=== PATIENT | female | born 1965 | race Caucasian/White ===

== ENCOUNTER 2016-07-21 20:32 | Emergency (ER) | payer MEDICAID ==
[~2016-07-21] VITALS: Ht 162.6 cm; Wt 76.7 kg
[~2016-07-21 20:32] MED LIST: APRESOLINE10 MG PO; ASPIRIN81 M1 PO; BISCOLAX5 MG PO; CALCIUM600 M1 PO; CATAPRES0.1 MG PO; DIALYVITE1 TAB PO; LEVEMIR100 U/ML SUBQ; LIPITOR80 MG PO; PRILOSEC40 MG PO; TRICOR145 MG PO
[2016-07-21 20:40] VITALS: BP 147/91
--- NOTE | 2016-07-21 21:49 | NUR ---
LAB CALLED FOR CRITICAL HIGH CR 4.9. DR. LEVY MADE AWARE.
--- NOTE | 2016-07-21 22:30 | NUR ---
AMBULATED TO ER BED 7
--- NOTE | 2016-07-21 22:35 | NUR ---
PT IS 51/F BIB SON TO ED WITH C/O ABD PAIN AND BRUISE x YESTERDAY. PT STATES MED HX OF DM AND DIALYSIS. DENIES N/V/D; SKIN IS PINK/WARM/DRY; AAOX4 WITH EVEN AND STEADY GAIT; LUNGS CLEAR BL; HR EVEN AND REGULAR; PT DENIES ANY FEVER, CP, SOB, OR COUGH AT THIS TIME; PATIENT STATES PAIN OF 8/10 AT THIS TIME; VSS; PATIENT POSITIONED FOR COMFORT; HOB ELEVATED; BEDRAILS UP X2; BED DOWN. ER MD MADE AWARE OF PT STATUS.
--- NOTE | 2016-07-22 00:30 | NUR ---
PT RESTING IN BED NO S/S OF ACUTE RESPIRATORY DISTRESS NOTED AT THIS TIME
[2016-07-22] MEDS ORDERED: MORPHINE SULFATE 4 MG/ML SYR IM ONE (00:35)
[2016-07-22 02:15] VITALS: BP 128/86
[2016-10-29] MEDS ORDERED: LASIX40 MG PO (10:56)
[2016-10-29] MEDS ORDERED: HYDRALAZINE HY100 M1 PO (10:58)
[2016-10-29] MEDS ORDERED: CATAPRES0.3 MG PO (13:15)
[2016-11-01] MEDS ORDERED: KEFLEX250 MG PO (12:24)
[2016-11-01] MEDS ORDERED: BLOOD GLUCOSE1 EACH FS (12:24)
[2016-11-01] MEDS ORDERED: HUMALOG SL100 UNITS/ SUBQ (12:24)
[2016-11-01] MEDS ORDERED: FLORASTOR 33 MG1 CAP PO (12:24)
[2016-11-01] MEDS ORDERED: LEVEMIR100 U/ML SUBQ (12:24)
[2016-11-01] MEDS ORDERED: NEPHRO-VITE1 TA1 PO (12:24)
[2016-11-01] MEDS ORDERED: CARVEDILOL3.125 MG PO (12:24)
[2016-11-06] MEDS ORDERED: FAMOTIDINE20 M2 PO (08:19)
[2016-11-06] MEDS ORDERED: LEVEMIR100 U/ML SUBQ (08:19)
[2016-11-06] MEDS ORDERED: AMLODIPINE BESYL5 M1 PO (08:19)
[2016-11-06] MEDS ORDERED: CATAPRES0.1 M1 PO (08:19)
[2016-11-06] MEDS ORDERED: LIPITOR80 MG PO (08:19)
[2016-11-06] MEDS ORDERED: CARVEDILOL3.125 MG PO (08:19)
[2016-11-06] MEDS ORDERED: PHOSLO667 M1 PO (08:19)
[2016-11-06] MEDS ORDERED: LISINOPRIL20 M1 PO (08:19)
[2016-11-06] MEDS ORDERED: LASIX10 MG/M2 IVP (08:22)
== END 2016-07-22 02:14 | disposition home or self-care (01) ==
LOC: MED 20:32
DX: S30.1XXA Contusion of abdominal wall, initial encounter (principal); I12.9 Hypertensive chronic kidney disease with stage 1 through stage 4 chronic kidney disease, or unspecified chronic kidney disease; E11.22 Type 2 diabetes mellitus with diabetic chronic kidney disease; E11.9 Type 2 diabetes mellitus without complications; N18.9 Chronic kidney disease, unspecified; Z99.2 Dependence on renal dialysis; Z79.4 Long term (current) use of insulin; Z79.82 Long term (current) use of aspirin; X58.XXXA Exposure to other specified factors, initial encounter; Y92.89 Other specified places as the place of occurrence of the external cause; Y93.89 Activity, other specified; Y99.8 Other external cause status
CPT/HCPCS: 36415; 74176; 80053; 81002; 81025; 83690; 85025; 85610; 85730; 96372; 99285; J2270

== ENCOUNTER 2016-10-29 01:19 | Inpatient (IN) | payer MEDICAID ==
[~2016-10-29] VITALS: Ht 157.5 cm; Wt 73.5 kg
[~2016-10-29 01:19] MED LIST changes: -APRESOLINE10 MG PO; +ASPI81CT89 PO; -ASPIRIN81 M1 PO; -BISCOLAX5 MG PO; +CALC600T18 PO; -CALCIUM600 M1 PO; -CATAPRES0.1 MG PO; +CLON0.1T42 PO; -DIALYVITE1 TAB PO; +FENO145T PO; +HYDR-3229 PO; +LEVEMIR SUBQ; -LEVEMIR100 U/ML SUBQ; +LIP80 PO; -LIPITOR80 MG PO; +OMEP40EC1 PO; -PRILOSEC40 MG PO; -TRICOR145 MG PO; +VITA1TAB83 PO; +[UNRECOGNIZED DRUG - CODE] PO
[2016-10-29 01:23] VITALS: BP 202/79
--- NOTE | 2016-10-29 01:32 | NUR ---
PT TAKEN TO BED 6
--- NOTE | 2016-10-29 01:35 | NUR ---
PT IS 51/F BIB SON TO ED WITH C/O HIGH BP, 202/ 79 SLEEPY, PALE. PT STATES MED HX OF HTN, DM, DIALYSIS PATIENT (TUE,THYUKO, SAT). DENIES N/V/D; SKIN IS WARM/DRY; AAOX4 WITH EVEN AND STEADY GAIT; LUNGS CLEAR BL; HR EVEN AND REGULAR; PT DENIES ANY FEVER, CP, SOB, OR COUGH AT THIS TIME; PATIENT STATES PAIN OF 0/10 AT THIS TIME; VSS; PATIENT POSITIONED FOR COMFORT; HOB ELEVATED; BEDRAILS UP X2; BED DOWN. ER MD MADE AWARE OF PT STATUS.
--- NOTE | 2016-10-29 01:36 | NUR ---
Dr. Lazar evaluating patient at bedside.
[2016-10-29] MEDS ORDERED: LABETALOL 100 MG/20 ML VIAL IVP ONE (01:40)
--- NOTE | 2016-10-29 02:55 | NUR ---
PT APPEARS TO BE SLEEPING IN BED. NO AOB NOTED AT THIS TIME. SON AT BEDSIDE. WILL CONTINUE TO MONITOR.
[2016-10-29 02:58] LABS: HEMATOCRIT 40.1 % (36-48); HEMOGLOBIN 12.9 g/dL (12.0-16.0); MEAN CORPUSCULAR HEMOGLOBIN 29 pg (27-31); MEAN CORPUSCULAR HGB CONC 32 g/dL (33-37); MEAN CORPUSCULAR VOLUME 91 fL (80-94); PLATELET COUNT (AUTO) 233 K/uL (140-450); RED BLOOD CELL COUNT(AUTO) 4.42 MIL/uL (4.20-5.40); RED CELL DISTRIBUTION WIDTH 15.7 % (11.6-13.7); WHITE BLOOD COUNT (AUTO) 9.1 K/uL (4.8-10.8)
[2016-10-29 03:00] LABS: ANION GAP 9.5 (8-16); CALCIUM 9.1 mg/dL (8.5-10.1); CARBON DIOXIDE 33.7 mmol/L (21-32); CREATININE 3.6 mg/dL (0.6-1.3); POTASSIUM 4.2 mmol/L (3.5-5.1)
[2016-10-29 03:06] LABS: TOTAL BILIRUBIN 0.4 mg/dL (0.0-1.0); TOTAL PROTEIN, SERUM 7.5 g/dL (6.4-8.2)
[2016-10-29 03:07] LABS: EOSINOPHILS % (MANUAL) 12 % (0-4); LYMPHOCYTES % (MANUAL) 29 % (20-46); MONOCYTES % (MANUAL) 4 % (5-12); NEUTROPHILS % (MANUAL) 55 (43-65)
[2016-10-29 03:09] LABS: INR 1.1 (0.8-1.2); PARTIAL THROMBOPLASTIN TIME 28.3 secs (22-35.6); PROTHROMBIN TIME 10.4 secs (10.8-13.4)
[2016-10-29] MEDS ORDERED: hydrALAZINE 20 MG/ML VIAL IVP ONE (03:20)
[2016-10-29] MEDS ORDERED: ACETAMINOPHEN EXTRA STRENGTH 500 MG TAB PO ONE (04:30)
--- NOTE | 2016-10-29 04:53 | NUR ---
PT RESTING IN BED . NO SOB NOTED AT THIS TIME. PT DENIES PAIN AT THIS TIME. SON AT BEDSIDE.
--- NOTE | 2016-10-29 05:10 | NUR ---
PT TAKEN TO CT
--- NOTE | 2016-10-29 05:23 | NUR ---
PT BACK ON UNIT FROM CT
[2016-10-29] MEDS: NACL 0.9% 1,000 ML IV SCH ×2 (06:14→12:17)
[2016-10-29] MEDS ORDERED: ACETAMINOPHEN 325 MG TAB PO PRN (06:15)
[2016-10-29] MEDS ORDERED: ONDANSETRON 4 MG/2 ML VIAL IVP PRN (06:15)
[2016-10-29] MEDS ORDERED: HYDROcodone/APAP 5/325 MG 1 TAB TAB PO PRN (06:15)
[2016-10-29] MEDS ORDERED: MORPHINE SULFATE 2 MG/ML SYR IVP PRN (06:15)
[2016-10-29] MEDS ORDERED: APAP/BUTAL/CAFF 325/50/40 MG 1 TAB PO PRN (06:15)
--- NOTE | 2016-10-29 06:40 | NUR ---
Patient will be admitted to care of DR ROCHE. Admited to TELE. Will go to room 113. Belongings list completed. Report to KASHMIR WILLIS.
[2016-10-29 07:12] LABS: FREE T4 (FREE THYROXINE) 1.18 ng/dL (0.76-1.46); MAGNESIUM 2.3 mg/dL (1.8-2.4); PHOSPHORUS 3.6 mg/dL (2.5-4.9); THYROID STIMULATING HORMONE 2.97 uIU/mL (0.34-3.76)
--- NOTE | 2016-10-29 07:30 | NUR ---
REPORT RECEIVED FROM VACUUM CLEANER MECHANIC LAZARO RN, PT RESTING WITH EYES CLOSED, RESP EVEN UNLABORED ON ROOM AIR, SON AT BEDSIDE, AROUSES TO VOICE, MOVES ALL EXT, UP OUT OF BED WITH MINIMAL ASSIST TO BATHROOM, PT DENIES PAIN OR DISCOMFORT, PT ORIENTED TO HERSELF AND DATE, REORIENTED TO LOCATION AND SITUATION, PT PLACED ON FACTORER, ORIENTED TO ROOM AND FLOOR, CALL FINLEY AT BEDSIDE, BED LOCKED IN LOW POSITION, SIDE RAILS UP X2, WILL DO COMPLETE ADMISSION ASSESSMENT AT LATER TIME.
[2016-10-29 08:00] VITALS: BP 134/56
--- NOTE | 2016-10-29 09:20 | NUR ---
DR BHARDWAJ TO BEDSIDE FOR EVAL, PT AWAKE, DENIES PAIN OR DISCOMFORT, PT REMAINS ON COLORING ROOM MAN, RESP EVEN UNLABORED, PT WITH LEFT UPPER ARM FISTULA WITH GOOD THRILL AND BRUIT, PINK BAND PLACED ON LEFT ARM, SIGN POSTED, SON AT BEDSIDE, WILL CONTINUE TO MONITOR.
[2016-10-29] MEDS ORDERED: FURO-570 PO (10:56)
[2016-10-29] MEDS ORDERED: HYDR100T79 PO (10:58)
[2016-10-29 12:00] VITALS: BP 122/47
[2016-10-29] MEDS ORDERED: DEXTROSE 50% 50 ML SYR IVP PRN (12:05)
--- NOTE | 2016-10-29 12:40 | NUR ---
PT SITTING UP EATING LUNCH, INSULIN GIVEN PER ORDERED SLIDING SCALE, PT UP TO BATHROOM WITHOUT ASSIST WITH STEADY GAIT, O2 SAT 97% ON ROOM AIR AT THIS TIME, PT NOW MORE AWAKE ALERT, OX4, RESP EVEN UNLABORED, DENIES PAIN OR DISCOMFORT, CALL FINLEY WITHIN REACH, DAUGHTER AT BEDSIDE, WILL CONTINUE TO MONITOR.
[2016-10-29] MEDS: INSULIN LISPRO SLIDING SCALE 100 UNITS/ML VIAL SUBQ PRN ×3 (12:50→21:06)
[2016-10-29] MEDS ORDERED: CLON0.3T23 PO (13:15)
--- NOTE | 2016-10-29 14:05 | NUR ---
PT SLEEPING QUIETLY WITH EYES CLOSED, RESP EVEN UNLABORED ON ROOM AIR, O2 SAT 97%, DAUGHTER AT BEDSIDE, URINE CUP PROVIDED FOR URINE SAMPLE WITH NEXT VOID, CALL FINLEY WITHIN REACH, SIDE RAILS UP X2, BED LOCKED IN LOW POSITION, WILL CONTINUE TO MONITOR.
--- NOTE | 2016-10-29 15:20 | NUR ---
CC URINE SAMPLE COLLECTED, SENT TO LAB.
[2016-10-29 16:00] VITALS: BP 166/71
--- NOTE | 2016-10-29 16:20 | NUR ---
BP INCREASED BACK TO 166/71, PT DENIES CHRISTIANSON OR OTHER PAIN, DENIES VISION PROBLEMS, PT AAOX4, SPEAKING CLEARLY, EATING [place] WITH DAUGHTER, DR MARTINEZ MADE AWARE OF BP. WILL CONTINUE TO MONITOR.
[2016-10-29] MEDS: BLOOD GLUCOSE MONITORING 1 DEV DEV FS SCH ×2 (16:28→20:37)
--- NOTE | 2016-10-29 17:10 | NUR ---
PT'S HOME MEDICATION BOTTLE FOR CLONIDINE REVIEWED WITH DR CANTOR, RX LABEL ON BOTTLE STATES 0.3MG TABS, 3 TABLETS BY MOUTH 2 TIMES A DAY.
[2016-10-29] MEDS ORDERED: FUROSEMIDE 20 MG/2 ML VIAL IVP ONE (17:20)
[2016-10-29 17:31] LABS: BILIRUBIN,URINE NEGATIVE (NEGATIVE); BLOOD, URINE 1+ (NEGATIVE); COLOR,URINE YELLOW (YELLOW); LEUKOCYTE ESTERASE ,URINE TRACE (NEGATIVE); NITRITE, URINE NEGATIVE (NEGATIVE); PROTEIN,URINE 3+ (NEGATIVE); UGLUCOSE 2+ (NEGATIVE); UROBILINOGEN,URINE 0.2 EU/dL (0.2 - 1)
[2016-10-29 17:47] LABS: APPEARANCE,URINE HAZY (CLEAR)
--- NOTE | 2016-10-29 18:20 | NUR ---
PT NOW SITTING UP IN CHAIR EATING DINNER, DENIES DIZZINESS OR LIGHT HEADEDNESS, DENIES PAIN, BP NOW 150/57, DAUGHTER AT BEDSIDE, PT DENIES ANY IMMEDIATE NEEDS, WILL CONTINUE TO MONITOR.
--- NOTE | 2016-10-29 19:24 | NUR ---
REPORT GIVEN TO HYDROPULPER, PT IN STABLE CONDITION.
--- NOTE | 2016-10-29 19:30 | NUR ---
RECEIVED PT IN STABLE CONDITION FROM AM NURSE. AAO X4, MONGOLIAN SPEAKING . ON TELE MONITOR. SITTING IN CHAIR ,EATING DINNER WITH FAMILY AT BEDSIDE. HAS HL ON THE RT FA#22 AND AV SHUNT ON LT UPPER ARM WITH GOOD BRUIT AND THRILL. NO C/O PAIN NOR DISCOMFORT AT THIS TIME. PLAN OF CARE DISCUSSED AND VERBALIZED UNDERSTANDING. ON CONTACT ISOLATION FOR HS: MRSA NARES. CALL LIGHT PLACED WITHIN EASY REACH. BED ON LOW POSITION. WILL CONTINUE TO MONITOR.
[2016-10-29 20:00] VITALS: BP 150/64
[2016-10-29 20:28] LABS: BACTERIA,URINE FEW /HPF (None Seen); RBC,URINE 0-5 (RARE) /HPF (0-5); SQUAMOUS EPITHELIAL CELL,UR FEW /LPF (0-3 (FEW)); WBC,URINE 0-5 (RARE) /HPF (0-5)
[2016-10-29] MEDS: FAMOTIDINE 20 MG TAB PO SCH (20:38)
[2016-10-29] MEDS: ATORVASTATIN 80 MG TAB PO SCH (20:40)
[2016-10-29] MEDS ORDERED: cloNIDine 0.1 MG TAB PO SCH (21:00)
--- NOTE | 2016-10-29 21:00 | NUR ---
EKG DONE AT BEDSIDE. NSR . WILL CONTINUE TO MONITOR.
[2016-10-29] MEDS: INSULIN DETEMIR 100 UNITS/ML 10 ML VIAL SUBQ SCH (21:04)
[2016-10-29] MEDS ORDERED: FUROSEMIDE 40 MG/4 ML VIAL IVP ONE (22:20)
[2016-10-29] MEDS: FUROSEMIDE 40 MG/4 ML VIAL IVP SCH (22:25)
--- NOTE | 2016-10-29 23:50 | NUR ---
CALLED RADIOLOGY FOR THE US BLE AND US ARTERIAL ORDERED. WILL DO IN AM.
[2016-10-30] VITALS (7 sets, daily range): BP systolic 126–185; BP diastolic 48–74
[2016-10-30] MEDS: cloNIDine 0.1 MG TAB PO PRN ×2 (00:15→22:19)
--- NOTE | 2016-10-30 00:15 | NUR ---
BLOOD PRESSURE 182/69. NO H/A NOR DIZZINESS NOTED. MEDICATED WITH CLONIDINE O.12 MG PO NEEDED. WILL CONTINUE TO MONITOR.
--- NOTE | 2016-10-30 01:45 | NUR ---
BP RECHECKED RESULT 171/64. NO C/O ANY HEADACHE OR DISCOMFORT. ASSISTED TO BATHROOM ,VOIDED. WILL CONTINUE TO MONITOR.
--- NOTE | 2016-10-30 03:00 | NUR ---
ASLEEP. NO S/S OF ANY DISCOMFORT NOTED. WILL CONTINUE TO MONITOR.
--- NOTE | 2016-10-30 04:00 | NUR ---
SCD MACHINE APPLIED TO BOTH LE. EXPLAINED TO PT/FAMILY REGARDING BENEFITS OF THE MACHINE. VERBALIZED UNDERSTANDING
--- NOTE | 2016-10-30 04:16 | NUR ---
PAGED DR. ROCHE FOR BP STILL 181/73 AFTER CLONIDINE 0.1MG GIVEN @0015. PT ASYMPTOMATIC. MADE AWARE AND WILL ORDER MEDS.
[2016-10-30] MEDS: hydrALAZINE 20 MG/ML VIAL IVP PRN ×2 (05:19→18:29)
--- NOTE | 2016-10-30 05:25 | NUR ---
FOLLOW UP THE US CAROTID US VENOUS AND ARTERIAL THAT NEEDS TO BE DONE FOR PT. TALKED TO DAVID AND SAID YANETH THE TECH IS COMING @ 0700 AND WILL DO THE TEST.
[2016-10-30] MEDS: BLOOD GLUCOSE MONITORING 1 DEV DEV FS SCH ×4 (06:00→20:39)
[2016-10-30] MEDS: INSULIN LISPRO SLIDING SCALE 100 UNITS/ML VIAL SUBQ PRN ×4 (06:02→20:40)
--- NOTE | 2016-10-30 06:02 | NUR ---
BLOOD SUGAR THIS AM 166. INSULIN COVERAGE GIVEN SUBQ.
[2016-10-30 06:14] LABS: HEMATOCRIT 37.5 % (36-48); HEMOGLOBIN 12.2 g/dL (12.0-16.0); MEAN CORPUSCULAR HEMOGLOBIN 30 pg (27-31); MEAN CORPUSCULAR HGB CONC 33 g/dL (33-37); MEAN CORPUSCULAR VOLUME 91 fL (80-94); PLATELET COUNT (AUTO) 224 K/uL (140-450); RED BLOOD CELL COUNT(AUTO) 4.13 MIL/uL (4.20-5.40); RED CELL DISTRIBUTION WIDTH 15.4 % (11.6-13.7); WHITE BLOOD COUNT (AUTO) 9.9 K/uL (4.8-10.8)
[2016-10-30] MEDS: NACL 0.9% 1,000 ML IV SCH (06:14)
--- NOTE | 2016-10-30 06:19 | NUR ---
LATEST BLOOD PRESSURE THIS AM AFTER APRESOLINE 10 MG IVP GIVEN 135/66 , HR -72. WILL CONTINUE TO MONITOR.
[2016-10-30 06:31] LABS: ALBUMIN 2.7 g/dL (3.4-5.0); ANION GAP 10.7 (8-16); CALCIUM 8.9 mg/dL (8.5-10.1); CARBON DIOXIDE 30.2 mmol/L (21-32); POTASSIUM 4.9 mmol/L (3.5-5.1); TOTAL BILIRUBIN 0.3 mg/dL (0.0-1.0); TOTAL PROTEIN, SERUM 6.9 g/dL (6.4-8.2)
[2016-10-30 06:33] LABS: CREATININE 5.3 mg/dL (0.6-1.3)
[2016-10-30 06:36] LABS: CHOL/HDL RATIO 2.6 (1-4.5); PHOSPHORUS 4.8 mg/dL (2.5-4.9)
[2016-10-30 06:46] LABS: URIC ACID 4.3 mg/dL (2.6-7.2)
--- NOTE | 2016-10-30 07:15 | NUR ---
ENDORSED PT IN STABLE CONDITION TO AM NURSE.
[2016-10-30 07:16] LABS: BAND % (MANUAL) 4 % (0-8); EOSINOPHILS % (MANUAL) 22 % (0-4); LYMPHOCYTES % (MANUAL) 24 % (20-46); MONOCYTES % (MANUAL) 6 % (5-12); NEUTROPHILS % (MANUAL) 44 (43-65)
--- NOTE | 2016-10-30 07:18 | NUR ---
REPORT RECEIVED FROM ELECTRONIC SERVICE TECHNICIAN, PT RESTING WITH EYES CLOSED, AROUSES WITH VOICE, RESP EVEN UNLABORED ON ROOM AIR, SPEAKS CLEARLY IN NAD, PLAN OF CARE DISCUSSED, PT DENIES PAIN OR DISCOMFORT, UP OUT OF BED WITH MINIMAL ASSIST, AMBULATES TO BATHROOM WITH STEADY GAIT, SON AT BEDSIDE, CALL FINLEY WITHIN REACH, SIDE RAILS UP, BED LOCKED IN LOW POSITION, WILL CONTINUE TO MONITOR.
[2016-10-30] MEDS: FAMOTIDINE 20 MG TAB PO SCH ×2 (08:51→20:38)
[2016-10-30] MEDS: VIT-B COMP/VIT-C/FOLIC ACID 1 TAB PO SCH (08:51)
[2016-10-30] MEDS: ECOTRIN 81 MG TABEC PO SCH (08:51)
[2016-10-30] MEDS: FUROSEMIDE 40 MG/4 ML VIAL IVP SCH ×2 (08:51→16:52)
[2016-10-30] MEDS: cloNIDine 0.1 MG TAB PO SCH (08:52)
[2016-10-30] MEDS: INSULIN DETEMIR 100 UNITS/ML 10 ML VIAL SUBQ SCH ×2 (08:54→20:41)
[2016-10-30] MEDS ORDERED: FUROSEMIDE 40 MG/4 ML VIAL IVP SCH (09:00)
[2016-10-30 09:22] LABS: T4 (THYROXINE) 8.2 ug/dL (4.5-12.0)
[2016-10-30] MEDS: VITAMIN B COMPLEX W/C 1 TAB PO SCH (09:50)
--- NOTE | 2016-10-30 10:18 | NUR ---
REPEAT BP 140/68 HR 66, PT AWAKE ALERT, DENIES PAIN OR DISCOMFORT, WILL CONTINUE TO MONITOR
--- NOTE | 2016-10-30 11:03 | NUR ---
ECHOCARDIOGRAM BEING DONE AT BEDSIDE AT THIS TIME.
--- NOTE | 2016-10-30 12:20 | NUR ---
PT SITTING UP WATCHING VIDEO ON PHONE, AAOX4, RESP EVEN UNLABORED ON ROOM AIR IN NAD, PT DENIES PAIN OR DISCOMFORT, DENIES ANY IMMEDIATE NEEDS, CALL FINLEY WITHIN REACH.
--- NOTE | 2016-10-30 12:58 | NUR ---
PATIENT HAS BEEN SCREENED AND CATEGORIZED MODERATE NUTRITION RISK. PATIENT WILL BE SEEN WITHIN 3-5 DAYS OF ADMISSION. 11/01/06 - 11/03/16 WM DIAS MBA, RD
--- NOTE | 2016-10-30 16:30 | NUR ---
PT SITTING UP IN BED IN NAD, RESP EVEN UNLABORED, TALKING WITH SON IN NAD, DENIES CHRISTIANSON OR OTHER PAIN, BP INCREASED TO 185/74, WILL GIVE 1700 DOSE OF LASIX NOW AND REEVALUATE.
--- NOTE | 2016-10-30 18:34 | NUR ---
BP NOW 179/68, PRN HYDRALAZINE GIVEN AT THIS TIME, PT AAOX4, SITTING UP EATING DINNER, DENIES PAIN OR DISCOMFORT, DENIES CHRISTIANSON, CALL FINLEY WITHIN REACH, SIDE RAILS UPX2, SON AT BEDSIDE, WILL CONT TO MONITOR.
--- NOTE | 2016-10-30 19:05 | NUR ---
BP 135/57 NOW, PT RESTING QUIETLY IN NAD, WILL REPORT TO ONCOMING SHIFT
--- NOTE | 2016-10-30 19:30 | NUR ---
REPORT GIVEN TO TESTS SUPERINTENDENT, PT IN STABLE CONDITION
--- NOTE | 2016-10-30 19:30 | NUR ---
RECEIVED REPORT FROM MAURO RN AT BEDSIDE. PT IS ALERT AWAKE ORIENTED X4. INITIAL ASSESSMENT DONE. NO S/S OF RESPIRATORY DISTRESS OR SOB NOTED. NO C/O PAIN OR ANY DISCOMFORT AT THIS TIME. PLAN OF CARE REVIEWED TO PT AND FAMILY AT BEDSIDE AND VERBALIZED UNDERSTANDING. CALL LIGHT WITHIN REACH. WILL CONTINUE TO MONITOR.
[2016-10-30] MEDS: ATORVASTATIN 80 MG TAB PO SCH (20:38)
--- NOTE | 2016-10-30 21:00 | NUR ---
DR. MEZA CAME TO SEE PT AND NEW ORDERS WERE GIVEN (PLS SEE CPOE). NEW ORDERS NOTED AND CARRIED OUT. WILL CONTINUE TO MONITOR.
[2016-10-30] MEDS: DOCUSATE SODIUM 250 MG GELCAP PO SCH (21:15)
--- NOTE | 2016-10-30 21:25 | NUR ---
CALLED JENNA BAEZ AND SCHEDULE PT FOR DIALYSIS [place] AT 0900 IS CONFIRMED. WILL CONTINUE TO MONITOR.
[2016-10-31] VITALS: BP 150/70
--- NOTE | 2016-10-31 | NUR ---
PT IS SLEEPING RIGHT NOW BUT EASILY AROUSABLE. NO S/S OF ANY DISCOMFORT AT THIS TIME. ALL NEEDS ARE ATTENDED. CALL LIGHT WITHIN REACH. WILL CONTINUE TO MONITOR.
[2016-10-31 04:00] VITALS: BP 155/79
--- NOTE | 2016-10-31 05:20 | NUR ---
AM CARE RENDERED. BED LINEN CHANGED. INSTRUCTED PT TO REPOSITION. KEPT CLEAN AND DRY. CALL LIGHT WITHIN REACH. WILL CONTINUE TO MONITOR.
[2016-10-31 06:11] LABS: BASOPHILS # (AUTO) 0.2 K/uL (0.00-0.22); BASOPHILS % (AUTO) 1.7 % (0.0-2.0); EOSINOPHILS # (AUTO) 0.4 K/uL (0-0.4); EOSINOPHILS % (AUTO) 4.1 % (0.0-4.0); HEMATOCRIT 38.3 % (36-48); HEMOGLOBIN 11.9 g/dL (12.0-16.0); LYMPHOCYTES # (AUTO) 1.9 K/uL (2.5-16.5); LYMPHOCYTES % (AUTO) 19.7 % (20.5-51.1); MEAN CORPUSCULAR HEMOGLOBIN 28 pg (27-31); MEAN CORPUSCULAR HGB CONC 31 g/dL (33-37); MEAN CORPUSCULAR VOLUME 90 fL (80-94); MONOCYTES # (AUTO) 0.6 K/uL (0.8-1.0); MONOCYTES % (AUTO) 5.9 % (1.7-9.3); NEUTROPHILS # (AUTO) 6.3 K/uL (1.8-7.7); NEUTROPHILS % (AUTO) 68.6 % (42.2-75.2); PLATELET COUNT (AUTO) 231 K/uL (140-450); RED BLOOD CELL COUNT(AUTO) 4.24 MIL/uL (4.20-5.40); RED CELL DISTRIBUTION WIDTH 15.4 % (11.6-13.7); WHITE BLOOD COUNT (AUTO) 9.4 K/uL (4.8-10.8)
[2016-10-31 06:24] LABS: ANION GAP 14.7 (8-16); CALCIUM 8.9 mg/dL (8.5-10.1); CARBON DIOXIDE 27.6 mmol/L (21-32); POTASSIUM 5.3 mmol/L (3.5-5.1)
[2016-10-31 06:32] LABS: MAGNESIUM 2.5 mg/dL (1.8-2.4); PHOSPHORUS 4.7 mg/dL (2.5-4.9)
[2016-10-31 06:34] LABS: CREATININE 6.6 mg/dL (0.6-1.3)
[2016-10-31] MEDS: BLOOD GLUCOSE MONITORING 1 DEV DEV FS SCH ×4 (06:46→21:19)
--- NOTE | 2016-10-31 07:15 | NUR ---
PT HAS NO S/S OF ANY DISCOMFORT. PLAN OF CARE ENDORSED TO CHELO MARLOW AT BEDSIDE FOR CONTINUITY OF CARE.
--- NOTE | 2016-10-31 07:15 | NUR ---
RECEIVED REPORT FROM NIGHT NURSE, PT IS AAOX4 MONGOLIAN SPEAKING, ON ROOM AIR, IV TO RIGHT FA 22G SALINE LOCK PATENT AND INTACT. AV SHUNT TO LEFT UPPER ARM, SKIN INTACT, INITIAL ASSESSMENT COMPLETED, REVIEWED PLAN OF CARE WITH PT, PT VERBALIZED UNDERSTANDING. ALL SAFETY PRECAUTIONS MET. SON AT BEDSIDE, CALL LIGHT WITHIN REACH, WILL CONTINUE TO MONITOR.
[2016-10-31 08:39] VITALS: BP 152/60
[2016-10-31] MEDS: cloNIDine 0.1 MG TAB PO SCH ×2 (09:00→21:47)
[2016-10-31] MEDS: INSULIN DETEMIR 100 UNITS/ML 10 ML VIAL SUBQ SCH ×3 (09:00→21:49)
[2016-10-31] MEDS: FUROSEMIDE 40 MG/4 ML VIAL IVP SCH ×2 (09:00→16:48)
[2016-10-31] MEDS: DOCUSATE SODIUM 250 MG GELCAP PO SCH ×2 (09:04→21:47)
[2016-10-31] MEDS: FAMOTIDINE 20 MG TAB PO SCH (09:04)
[2016-10-31] MEDS: VITAMIN B COMPLEX W/C 1 TAB PO SCH (09:04)
[2016-10-31] MEDS: ECOTRIN 81 MG TABEC PO SCH (09:04)
[2016-10-31] MEDS: VIT-B COMP/VIT-C/FOLIC ACID 1 TAB PO SCH (09:05)
--- NOTE | 2016-10-31 09:08 | NUR ---
DUE MEDICATIONS GIVEN, BP MEDICATION NOT GIVEN, HEMODIALYSIS IN PROCESS. ALL NEEDS MET. CALL LIGHT WITHIN REACH. WILL CONTINUE TO MONITOR.
[2016-10-31] MEDS ORDERED: CARVEDILOL 3.125 MG TAB PO SCH (10:47)
--- NOTE | 2016-10-31 11:30 | NUR ---
DUE MEDICATION GIVEN, SON AT BEDSIDE WILL CONTINUE TO MONITOR. ALL NEEDS MET
[2016-10-31 12:00] VITALS: BP 137/74
[2016-10-31] MEDS: INSULIN LISPRO SLIDING SCALE 100 UNITS/ML VIAL SUBQ PRN ×2 (12:02→17:57)
--- NOTE | 2016-10-31 13:25 | NUR ---
PT CURRENTLY SLEEPING, SON AT BEDSIDE. WILL CONTINUE TO MONITOR.
[2016-10-31 16:00] VITALS: BP 149/63
[2016-10-31 16:30] LABS: HEMOGLOBIN A1C 6.7 % (4.8-5.6)
--- NOTE | 2016-10-31 16:51 | NUR ---
DUE MEDICATIONS GIVEN, SON AT BEDSIDE. ALL NEEDS MET. CALL LIGHT WITHIN REACH. WILL CONTINUE TO MONITOR.
--- NOTE | 2016-10-31 19:37 | NUR ---
ENDORSED PLAN OF CARE TO NIGHT NURSE, PT IN STABLE CONDITION.
[2016-10-31 20:00] VITALS: BP 167/70
--- NOTE | 2016-10-31 20:00 | NUR ---
RECEIVED ALERT,ORIENTED,VERBALLY RESPONSIVE IN [place]. AFEBRILE,NOT IN ACUTE DISTRESS. DENIES ANY PAIN OR DISCOMFORT. WITH SALINE LOCK TO THE RIGHT FOREARM GAUGE 22 INTACT. SAO2=96% ON ROOM AIR. BP ELEVATED (167/70),OTHERWISE ASYMPTOMATIC AND STABLE. WILL CONTINUE TO MONITOR. NEEDS ATTENDED.
--- NOTE | 2016-10-31 21:19 | NUR ---
[id number]. NO SLIDING SCALE INSULIN COVERAGE NEEDED.
[2016-10-31] MEDS: CARVEDILOL 3.125 MG TAB PO SCH (21:47)
[2016-10-31] MEDS: ATORVASTATIN 80 MG TAB PO SCH (21:47)
--- NOTE | 2016-10-31 21:47 | NUR ---
LEVEMIR REFUSED BY PT. OTHER DUE MEDICATIONS GIVEN.
[2016-11-01] VITALS: BP 154/54
--- NOTE | 2016-11-01 | NUR ---
RESTING IN BED,NOT IN ANY KIND OF DISTRESS. NO PAIN OR DISCOMFORT NOTED. SIDE RAILS UP,CALL LIGHT WITHIN REACH. KEPT WARM AND COMFORTABLE. VS REMAIN STABLE.
--- NOTE | 2016-11-01 04:00 | NUR ---
ASLEEP,NOT IN ANY KIND OF DISTRESS. NO PAIN OR DISCOMFORT NOTED. NO SIGNIFICANT CHANGE IN CONDITION. WILL CONTINUE TO MONITOR.
[2016-11-01] MEDS: BLOOD GLUCOSE MONITORING 1 DEV DEV FS SCH ×2 (05:59→11:39)
[2016-11-01] MEDS: INSULIN LISPRO SLIDING SCALE 100 UNITS/ML VIAL SUBQ PRN ×2 (06:13→11:59)
--- NOTE | 2016-11-01 06:13 | NUR ---
2 UNITS OF HUMALOG SQ GIVEN PER SLIDING SCALE FOR BLOOD [id number].
[2016-11-01 06:16] LABS: BASOPHILS # (AUTO) 0.2 K/uL (0.00-0.22); BASOPHILS % (AUTO) 2.2 % (0.0-2.0); EOSINOPHILS # (AUTO) 0.9 K/uL (0-0.4); EOSINOPHILS % (AUTO) 8.8 % (0.0-4.0); HEMATOCRIT 38.1 % (36-48); HEMOGLOBIN 12.5 g/dL (12.0-16.0); LYMPHOCYTES # (AUTO) 2.6 K/uL (2.5-16.5); LYMPHOCYTES % (AUTO) 24.8 % (20.5-51.1); MEAN CORPUSCULAR HEMOGLOBIN 30 pg (27-31); MEAN CORPUSCULAR HGB CONC 33 g/dL (33-37); MEAN CORPUSCULAR VOLUME 90 fL (80-94); MONOCYTES % (AUTO) 9.2 % (1.7-9.3); NEUTROPHILS # (AUTO) 5.8 K/uL (1.8-7.7); PLATELET COUNT (AUTO) 245 K/uL (140-450); RED BLOOD CELL COUNT(AUTO) 4.24 MIL/uL (4.20-5.40); RED CELL DISTRIBUTION WIDTH 15.6 % (11.6-13.7); WHITE BLOOD COUNT (AUTO) 10.5 K/uL (4.8-10.8)
[2016-11-01 06:53] LABS: ALBUMIN 2.9 g/dL (3.4-5.0); ANION GAP 16.3 (8-16); CALCIUM 8.9 mg/dL (8.5-10.1); CARBON DIOXIDE 28.9 mmol/L (21-32); PHOSPHORUS 5.9 mg/dL (2.5-4.9); POTASSIUM 4.2 mmol/L (3.5-5.1); TOTAL BILIRUBIN 0.3 mg/dL (0.0-1.0); TOTAL PROTEIN, SERUM 7.5 g/dL (6.4-8.2)
[2016-11-01 07:05] LABS: CREATININE 5.6 mg/dL (0.6-1.3)
--- NOTE | 2016-11-01 07:10 | NUR ---
RECEIVED PATIENT REPORT AT BEDSIDE. PATIENT AWAKE, ALERT, ORIENTED AND AMBULATORY. NO S/S OF DISTRESS NOTED. PATIENT ON ROOM AIR. NO C/O PAIN AT THIS TIME. LEFT UPPER ARM AV SHUNT NOTED. IV LINE NOTED TO THE RIGHT FOREARM SALINE LOCKED. BED LOWERED WITH CALL LIGHT WITHIN REACH. WILL CONTINUE TO MONITOR
--- NOTE | 2016-11-01 07:21 | NUR ---
ENDORSED CARE TO SAÚL PAL
[2016-11-01 08:00] VITALS: BP 133/66
[2016-11-01] MEDS: ECOTRIN 81 MG TABEC PO SCH (08:30)
[2016-11-01] MEDS: cloNIDine 0.1 MG TAB PO SCH (08:31)
[2016-11-01] MEDS: VIT-B COMP/VIT-C/FOLIC ACID 1 TAB PO SCH (08:31)
[2016-11-01] MEDS: DOCUSATE SODIUM 250 MG GELCAP PO SCH (08:31)
[2016-11-01] MEDS: CARVEDILOL 3.125 MG TAB PO SCH (08:32)
[2016-11-01] MEDS: FUROSEMIDE 40 MG/4 ML VIAL IVP SCH (08:32)
[2016-11-01] MEDS: VITAMIN B COMPLEX W/C 1 TAB PO SCH (08:33)
[2016-11-01] MEDS: INSULIN DETEMIR 100 UNITS/ML 10 ML VIAL SUBQ SCH (08:38)
[2016-11-01 10:09] LABS: URIC ACID 4.4 mg/dL (2.6-7.2)
[2016-11-01 11:00] VITALS: BP 119/78
--- NOTE | 2016-11-01 11:00 | NUR ---
IV LINE INFILTRATED. IV LINE DISCONTINUED. PER DR ARMENTA, NO NEED TO START A NEW IV LINE. PATIENT DOES NOT NEED SCHEDULED DOSE OF ROCEPHIN
--- NOTE | 2016-11-01 12:00 | NUR ---
TOOK PT LUNCH TRAY AND DIALED HER HOUSE # ON THE HOSPITAL PHONE. SHE WILL CALL FAMILY TO COME AND PICK HER UP BY [address] TOM AND REQUESTED THE DC ORDER BE IN SOONER. PT WILL BE READY TO LEAVE BY 1 PM. AWARE. WILL KEEP CHECKING FOR DC ORDER.
[2016-11-01] MEDS ORDERED: CEPH250C16 PO (12:24)
[2016-11-01] MEDS ORDERED: LEVEMIR SUBQ (12:24)
[2016-11-01] MEDS ORDERED: HUMSLIDE SUBQ (12:24)
[2016-11-01] MEDS ORDERED: NEP PO (12:24)
[2016-11-01] MEDS ORDERED: BLOO1STR10 FS (12:24)
[2016-11-01] MEDS ORDERED: CARV3.122 PO (12:24)
[2016-11-01] MEDS ORDERED: SACC250C1 PO (12:24)
--- NOTE | 2016-11-01 13:15 | NUR ---
WENT OVER THE DC PAPERWORK WITH PT AND SON. ANSWERED ALL QUESTIONS. PT VERBALIZED UNDERSTANDING. PT SIGNED ALL DOCUMENTS. REMOVED ID BANDS. GAVE THE DC PACKET. PT HAD ALL HER PERSONAL BELONGINGS. WHEELED PT OUT TO THE FRONT LOBBY W/ SON AT HER SIDE. SPOUSE WAS WAITING IN THE CAR. PT IN STABLE CONDITION.
== END 2016-11-01 13:15 | disposition home or self-care (01) | DRG 52 ==
LOC: MED 01:19 → MTU 06:25
PROVIDERS: ADMIT Family Medicine; ATTEND Family Medicine
PROC: 5A1D00Z (ICD-10-PCS; principal; 2016-10-31)
DX: I67.4 Hypertensive encephalopathy (principal); N17.0 Acute kidney failure with tubular necrosis; E43 Unspecified severe protein-calorie malnutrition; N18.6 End stage renal disease; D68.59 Other primary thrombophilia; I13.11 Hypertensive heart and chronic kidney disease without heart failure, with stage 5 chronic kidney disease, or end stage renal disease; E11.21 Type 2 diabetes mellitus with diabetic nephropathy; I16.0 Hypertensive urgency; E11.22 Type 2 diabetes mellitus with diabetic chronic kidney disease; E11.51 Type 2 diabetes mellitus with diabetic peripheral angiopathy without gangrene; E11.65 Type 2 diabetes mellitus with hyperglycemia; G90.9 Disorder of the autonomic nervous system, unspecified; K59.00 Constipation, unspecified; E83.39 Other disorders of phosphorus metabolism; K21.9 Gastro-esophageal reflux disease without esophagitis; E78.5 Hyperlipidemia, unspecified; Z99.2 Dependence on renal dialysis; Z79.82 Long term (current) use of aspirin; Z79.899 Other long term (current) drug therapy; Z68.29 Body mass index [BMI] 29.0-29.9, adult; Z86.73 Personal history of transient ischemic attack (TIA), and cerebral infarction without residual deficits; Z82.49 Family history of ischemic heart disease and other diseases of the circulatory system; Z83.3 Family history of diabetes mellitus
CPT/HCPCS: 36415; 70450; 71010; 80048; 80053; 81001; 82948; 83036; 83735; 83880; 84100; 84436; 84439; 84443; 84479; 84484; 84550; 85025; 85610; 85730; 87081; 90935; 93005; 93880; 93925; 93970; 96374; 96375; 99285; J0360; J0696; J1815; J1940; J2405; J3490; J7030; J7060; Q0092

== ENCOUNTER 2016-11-02 19:55 | Inpatient (IN) | payer MEDICAID ==
[~2016-11-02] VITALS: Ht 157.5 cm; Wt 73.5 kg
[~2016-11-02 19:55] MED LIST changes: +BLOO1STR10 FS; +CARV3.122 PO; +CEPH250C16 PO; -CLON0.1T42 PO; +CLON0.3T23 PO; -FENO145T PO; +FURO-570 PO; +HUMSLIDE SUBQ; -HYDR-3229 PO; +NEP PO; -OMEP40EC1 PO; +SACC250C1 PO
[2016-11-02 20:19] VITALS: BP 156/72
--- NOTE | 2016-11-02 21:03 | NUR ---
PT TAKEN TO OF3
--- NOTE | 2016-11-02 21:10 | NUR ---
51 Y/O F W/C/O FEELING DIZZY, IN DIALYSIS CENTER TODAY AND WAS ADVISED TO GO TO ER DUE TO HIGH BLOOD PRESSURE. HX ESRD, DM
--- NOTE | 2016-11-02 21:22 | NUR ---
Dr. Mcgrath evaluating patient
--- NOTE | 2016-11-02 22:01 | NUR ---
PT TAKEN TO XRAY
--- NOTE | 2016-11-02 22:09 | NUR ---
PT MOVED TO BED 7
[2016-11-02 22:10] LABS: BASOPHILS # (AUTO) 0.1 K/uL (0.00-0.22); BASOPHILS % (AUTO) 1.3 % (0.0-2.0); HEMOGLOBIN 13.3 g/dL (12.0-16.0); MEAN CORPUSCULAR HEMOGLOBIN 29 pg (27-31)
[2016-11-02 22:13] LABS: EOSINOPHILS # (AUTO) 0.6 K/uL (0-0.4); EOSINOPHILS % (AUTO) 7.4 % (0.0-4.0); HEMATOCRIT 41.7 % (36-48); LYMPHOCYTES # (AUTO) 1.8 K/uL (2.5-16.5); LYMPHOCYTES % (AUTO) 21.5 % (20.5-51.1); MEAN CORPUSCULAR HGB CONC 32 g/dL (33-37); MEAN CORPUSCULAR VOLUME 90 fL (80-94); MONOCYTES # (AUTO) 0.7 K/uL (0.8-1.0); MONOCYTES % (AUTO) 8.4 % (1.7-9.3); NEUTROPHILS % (AUTO) 61.4 % (42.2-75.2); PLATELET COUNT (AUTO) 253 K/uL (140-450); RED BLOOD CELL COUNT(AUTO) 4.66 MIL/uL (4.20-5.40); RED CELL DISTRIBUTION WIDTH 14.8 % (11.6-13.7); WHITE BLOOD COUNT (AUTO) 8.2 K/uL (4.8-10.8)
[2016-11-02 22:27] LABS: ANION GAP 9.3 (8-16); CARBON DIOXIDE 34.2 mmol/L (21-32); CREATININE 3.7 mg/dL (0.6-1.3); POTASSIUM 3.5 mmol/L (3.5-5.1)
[2016-11-02 22:28] LABS: INR 1.1 (0.8-1.2); PROTHROMBIN TIME 10.5 secs (10.8-13.4)
[2016-11-02 22:41] LABS: ALBUMIN 3.1 g/dL (3.4-5.0); TOTAL BILIRUBIN 0.3 mg/dL (0.0-1.0); TOTAL PROTEIN, SERUM 8.2 g/dL (6.4-8.2)
--- NOTE | 2016-11-02 23:11 | NUR ---
Stacey abarca in [facility] - 11/02/16 at 2312 by GRACIA PT CALLED TO BRICK BURNER HER UP
[2016-11-02] MEDS ORDERED: hydrALAZINE 20 MG/ML VIAL IVP STA (23:19)
--- NOTE | 2016-11-02 23:34 | NUR ---
PT TAKEN TO CT
[2016-11-03] MEDS ORDERED: HYDROcodone/APAP 5/325 MG 1 TAB TAB PO PRN (00:20)
[2016-11-03] MEDS ORDERED: ONDANSETRON 4 MG/2 ML VIAL IVP PRN (00:20)
[2016-11-03] MEDS ORDERED: ZOLPIDEM 5 MG TAB PO PRN (00:20)
[2016-11-03] MEDS ORDERED: MORPHINE SULFATE 2 MG/ML SYR IVP PRN (00:20)
[2016-11-03] MEDS ORDERED: ACETAMINOPHEN 325 MG TAB PO PRN (00:20)
--- NOTE | 2016-11-03 00:24 | NUR ---
Patient will be admitted to care of DR HASSAN. Admited to TELE. Will go to room 115. Belongings list completed. Report to KASHMIR LUBIN.
[2016-11-03] MEDS ORDERED: hydrALAZINE 20 MG/ML VIAL IM PRN (00:35)
[2016-11-03] MEDS ORDERED: DEXTROSE 50% 50 ML SYR IVP PRN (00:35)
[2016-11-03] MEDS ORDERED: INSULIN LISPRO SLIDING SCALE 100 UNITS/ML VIAL SUBQ PRN (00:35)
--- NOTE | 2016-11-03 00:42 | NUR ---
PT TRASFERED YO TELEMETRY VIA GURNEY WITH ACRDIAC MONITOR IN BED. ACCOMPANIED BY 2 RNS. NO S/S OF DISTRESS NOTED DURING TRASFER.
[2016-11-03 00:45] VITALS: BP 160/74
[2016-11-03] MEDS ORDERED: hePARIN / DEXT 5% PREMIX 250 ML IV SCH (00:45)
[2016-11-03] MEDS ORDERED: LISINOPRIL 5 MG TAB PO SCH ×3 (00:45→16:00)
[2016-11-03] MEDS ORDERED: HEPARIN PER PHARMACY MC PRN (00:45)
--- NOTE | 2016-11-03 00:45 | NUR ---
ADMITTED A 51F FORM ER, TELE PT. CAME BY BRUNA ACCOMPANIED BY SON. AWAKE,ALERT AND ORIENTED X4. AMBULATORY WITH ASSIST. HAS HL ON THE RT WRIST #22. CLEAR AND PATENT. WITH LT UPPER AM AV SHUNT , WITH GOOD BRUIT AND THRILL. LUNG SOUNDS CLEAR AND RESPIRATION EVEN AND UNLABORED. ORIENTED TO HOSPITAL ROUTINES. BED ON LOW POSITION , SIDE RAILS UP X2. CALL LIGHT PLACED WITHIN EASY REACH. PLAN OF CARE DISCUSSED AND VERBALIZED UNDERSTANDING. WILL CONTINUE TO MONITOR.
[2016-11-03 00:57] LABS: CHOL/HDL RATIO 3.5 (1-4.5)
[2016-11-03 01:00] LABS: FREE T4 (FREE THYROXINE) 1.27 ng/dL (0.76-1.46); THYROID STIMULATING HORMONE 2.19 uIU/mL (0.34-3.76)
--- NOTE | 2016-11-03 01:31 | NUR ---
PAGED DR HASSAN RE; NEED FOR PTT ORDER FOR HEPARIN DRIP PROTOCOL. HE SAID TO JUST ORDER IT.
[2016-11-03 01:33] LABS: APPEARANCE,URINE CLEAR (CLEAR); BILIRUBIN,URINE NEGATIVE (NEGATIVE); BLOOD, URINE TRACE-I (NEGATIVE); COLOR,URINE YELLOW (YELLOW); LEUKOCYTE ESTERASE ,URINE NEGATIVE (NEGATIVE); NITRITE, URINE NEGATIVE (NEGATIVE); PROTEIN,URINE 3+ (NEGATIVE); UGLUCOSE 2+ (NEGATIVE); UROBILINOGEN,URINE 0.2 EU/dL (0.2 - 1)
[2016-11-03 01:40] LABS: RBC,URINE 0-3 /HPF (0-5)
[2016-11-03 01:41] LABS: BACTERIA,URINE RARE /HPF (None Seen); SQUAMOUS EPITHELIAL CELL,UR 15-30 /LPF (0-3 (FEW))
--- NOTE | 2016-11-03 02:34 | NUR ---
HEPARIN BOLUS GIVEN PER PROTOCOL THEN WILL START HEPARIN DRIP .
[2016-11-03] MEDS: hePARIN / DEXT 5% PREMIX 250 ML IV SCH ×2 (02:41→10:47)
[2016-11-03 04:00] VITALS: BP 182/75
--- NOTE | 2016-11-03 04:00 | NUR ---
SLEEPING AT THIS TIME. NO S/S OF ANY DISCOMFORT NOR PAIN NOTED. WILL CONTINUE TO MONITOR.
[2016-11-03 06:00] VITALS: BP 158/64
--- NOTE | 2016-11-03 06:00 | NUR ---
BLOOD PRESSURE RECHECKED BEFORE HYDRALAZINE PRN. BP 158/64,HR -50. HYDRALAZINE NOT GIVEN PER PROTOCOL. WILL CONTINUE TO MONITOR.
[2016-11-03] MEDS: BLOOD GLUCOSE MONITORING 1 DEV DEV FS SCH ×4 (06:40→20:18)
[2016-11-03] MEDS: INSULIN LISPRO SLIDING SCALE 100 UNITS/ML VIAL SUBQ PRN ×3 (06:43→21:12)
--- NOTE | 2016-11-03 06:43 | NUR ---
BLOOD SUGAR WAS CHECKED RESULT 168 . INSULIN COVERAGE GIVEN SUBQ. HAD SOME JUICE.
--- NOTE | 2016-11-03 07:25 | NUR ---
ENDORSED PT IN STABLE CONDITION TO AM NURSE.
[2016-11-03] MEDS ORDERED: cloNIDine 0.1 MG TAB PO SCH ×2 (09:00→09:50)
[2016-11-03] MEDS ORDERED: FOLIC ACID PO SCH (09:00)
[2016-11-03] MEDS ORDERED: SACCHAROMYCES BOULARDII PO SCH (09:00)
[2016-11-03] MEDS ORDERED: VIT BCOMP C PO SCH (09:00)
[2016-11-03] MEDS ORDERED: CARVEDILOL 3.125 MG TAB PO SCH ×2 (09:00→21:00)
[2016-11-03] MEDS: CALCIUM CARB 600 MG TAB PO SCH (09:14)
[2016-11-03] MEDS: ATORVASTATIN 80 MG TAB PO SCH (09:14)
[2016-11-03] MEDS: VIT-B COMP/VIT-C/FOLIC ACID 1 TAB PO SCH (09:14)
[2016-11-03] MEDS: BISACODYL 5 MG TABEC PO SCH (09:15)
[2016-11-03] MEDS: FUROSEMIDE 40 MG TAB PO SCH ×2 (09:15→20:17)
[2016-11-03] MEDS: ASPIRIN 81 MG TAB.CHEW PO SCH (09:15)
[2016-11-03] MEDS: INSULIN DETEMIR 100 UNITS/ML 10 ML VIAL SUBQ SCH ×2 (09:23→20:27)
--- NOTE | 2016-11-03 10:16 | NUR ---
PATIENT HAS BEEN SCREENED AND CATEGORIZED MODERATE NUTRITION RISK. PATIENT WILL BE SEEN WITHIN 3-5 DAYS OF ADMISSION. 11/05/16-11/07/[address]
[2016-11-03] MEDS: LACTOBACILLUS RHAMNOSUS GG 1 EACH CAP PO SCH ×2 (11:04→20:17)
[2016-11-03 12:00] VITALS: BP 186/71
[2016-11-03] MEDS: cloNIDine 0.1 MG TAB PO SCH ×2 (13:42→16:43)
[2016-11-03 16:00] VITALS: BP 165/71
[2016-11-03] MEDS ORDERED: LISINOPRIL 10 MG TAB PO SCH (16:00)
--- NOTE | 2016-11-03 19:25 | NUR ---
ENDORSED PT TO KASHMIR DAHL. FOR CONTINUITY OF CARE, PT STABLE AT THIS TIME.
--- NOTE | 2016-11-03 19:30 | NUR ---
RECEIVED REPORT FROM DAY RN AT BEDSIDE, PATIENT IS RESTING IN BED AAOX4 ON ROOM AIR, NO SOB OR SIGN OF DISTRESS AT THIS TIME. IV TO RIGHT WRIST PATENT AND INTACT. DIALYSIS ACCESS AV SHUNT TO LEFT UPPER ARM, BRUIT AND THRILL PRESENT. SKIN INTACT, DENIES PAIN, PATIENT STATED SHE FEELS A LITTLE DIZZY, EXPLAINED TO PATIENT IMPORTANCE OF NOT GETTING OUT OF BED HERSELF AND TO USE CALL LIGHT FOR ASSISTANCE, PT VERBALIZED UNDERSTANDING. DISCUSSED PLAN OF CARE WITH PATIENT, PATIENT VERBALIZED UNDERSTANDING, CALL LIGHT WITHIN REACH. WILL CONTINUE TO MONITOR.
[2016-11-03 20:00] VITALS: BP 179/76
[2016-11-03] MEDS: hydrALAZINE 20 MG/ML VIAL IVP PRN (20:17)
--- NOTE | 2016-11-03 20:24 | NUR ---
PM MEDS ADMINISTERED, PATIENT TOLERATED WELL, WILL CONTINUE TO MONITOR
--- NOTE | 2016-11-03 22:30 | NUR ---
PATIENT SLEEPING, NO SIGN OF DISTRESS, CALL LIGHT WITHIN REACH. WILL CONTINUE TO MONITOR.
[2016-11-04] VITALS (7 sets, daily range): BP systolic 110–187; BP diastolic 53–84
--- NOTE | 2016-11-04 00:05 | NUR ---
VITAL SIGNS STABLE, NO SOB OR SIGN OF DISTRESS, CALL LIGHT WITHIN REACH. WILL CONTINUE TO MONITOR.
--- NOTE | 2016-11-04 00:58 | NUR ---
PAGED DRYWALL FOREMAN FOR DR HASSAN, SPOKE TO DR GARCIA, PATIENT'S BP ELEVATED TO 177/65, PRN HYDRALAZINE NOT DUE FOR ANOTHER 2 HOURS, PATIENT STATING FEELING DIZZY WHEN STANDING, MD GAVE NO NEW ORDERS AND STATED TO CONTINUE TO MONITOR THE PATIENT AND GIVE THE HYDRALAZINE PRN PER MD ORDER IF BP CONTINUES TO BE ELEVATED.
--- NOTE | 2016-11-04 02:11 | NUR ---
PATIENT SLEEPING, NO SIGN OF DISTRESS, CALL LIGHT WITHIN REACH, WILL CONTINUE TO MONITOR
[2016-11-04] MEDS: hydrALAZINE 20 MG/ML VIAL IVP PRN (03:58)
--- NOTE | 2016-11-04 04:10 | NUR ---
BLOOD PRESSURE ELEVATED, PATIENT SLEEPING, WILL ADMINISTER HYDRALAZINE PER MD ORDER, WILL CONTINUE TO MONITOR.
--- NOTE | 2016-11-04 06:20 | NUR ---
CALLED DIALYSIS NURSE TO CONFIRM DIALYSIS FOR PATIENT, DIALYSIS NURSE AWARE.
[2016-11-04] MEDS: BLOOD GLUCOSE MONITORING 1 DEV DEV FS SCH ×4 (06:42→21:13)
[2016-11-04 06:46] LABS: BASOPHILS # (AUTO) 0.2 K/uL (0.00-0.22); BASOPHILS % (AUTO) 1.6 % (0.0-2.0); EOSINOPHILS # (AUTO) 0.9 K/uL (0-0.4); HEMATOCRIT 40.2 % (36-48); LYMPHOCYTES # (AUTO) 2.6 K/uL (2.5-16.5); LYMPHOCYTES % (AUTO) 27.3 % (20.5-51.1); MEAN CORPUSCULAR HEMOGLOBIN 29 pg (27-31); MEAN CORPUSCULAR HGB CONC 32 g/dL (33-37); MEAN CORPUSCULAR VOLUME 90 fL (80-94); MONOCYTES # (AUTO) 0.8 K/uL (0.8-1.0); MONOCYTES % (AUTO) 7.9 % (1.7-9.3); NEUTROPHILS # (AUTO) 5.1 K/uL (1.8-7.7); NEUTROPHILS % (AUTO) 54.2 % (42.2-75.2); PLATELET COUNT (AUTO) 244 K/uL (140-450); RED BLOOD CELL COUNT(AUTO) 4.47 MIL/uL (4.20-5.40); RED CELL DISTRIBUTION WIDTH 15.1 % (11.6-13.7); WHITE BLOOD COUNT (AUTO) 9.6 K/uL (4.8-10.8)
[2016-11-04 07:01] LABS: ANION GAP 13.6 (8-16); CARBON DIOXIDE 29.1 mmol/L (21-32); POTASSIUM 3.7 mmol/L (3.5-5.1)
[2016-11-04 07:03] LABS: MAGNESIUM 2.2 mg/dL (1.8-2.4); PHOSPHORUS 6.6 mg/dL (2.5-4.9)
--- NOTE | 2016-11-04 07:30 | NUR ---
ENDORSED PATIENT TO DAY RN AT BEDSIDE, PATIENT IN STABLE CONDITION
--- NOTE | 2016-11-04 07:35 | NUR ---
RECEIVED REPORT FROM NIGHT RN AT BEDSIDE, PATIENT IS RESTING IN BED AWAKE, ALERT, AND ORIENTED. ON ROOM AIR, NO SOB OR SIGN OF DISTRESS AT THIS TIME. IV TO RIGHT WRIST PATENT AND INTACT. DIALYSIS ACCESS AV SHUNT TO LEFT UPPER ARM. SKIN INTACT. DISCUSSED PLAN OF CARE WITH PATIENT, PATIENT VERBALIZED UNDERSTANDING, PT WILL HAVE DIALYSIS TODAY. CALL LIGHT WITHIN REACH. WILL CONTINUE TO MONITOR.
[2016-11-04] MEDS: ASPIRIN 81 MG TAB.CHEW PO SCH (08:40)
[2016-11-04] MEDS: CALCIUM CARB 600 MG TAB PO SCH (08:40)
[2016-11-04] MEDS: FAMOTIDINE 20 MG TAB PO SCH (08:40)
[2016-11-04] MEDS: FUROSEMIDE 40 MG TAB PO SCH ×2 (08:41→21:06)
[2016-11-04] MEDS: LISINOPRIL 20 MG TAB PO SCH ×2 (09:00→21:06)
[2016-11-04] MEDS: cloNIDine 0.1 MG TAB PO SCH ×3 (09:00→17:50)
[2016-11-04] MEDS: CARVEDILOL 3.125 MG TAB PO SCH (09:00)
[2016-11-04] MEDS ORDERED: LISINOPRIL 10 MG TAB PO SCH (09:00)
[2016-11-04] MEDS: amLODIPine 5 MG TAB PO SCH (09:00)
--- NOTE | 2016-11-04 09:00 | NUR ---
HOLD SOME MEDS WHICH CAN LOWER PT'S BLOOD PRESSURE PT WILL HAVE DIALYSIS TODAY. PT'S SON AT BEDSIDE, PT VERBALIZED UNDERSTANDING, CHARGE NURSE AWARE.
--- NOTE | 2016-11-04 09:59 | NUR ---
RECHECKED BLOOD SUGAR 69. WILL CONTINUE TO GIVE PT ORANGE JUICE. Addendum: 11/04/16 at 1000 by Chip Tate RN WRONG PT.
[2016-11-04] MEDS: ATORVASTATIN 80 MG TAB PO SCH (10:10)
[2016-11-04] MEDS: VIT-B COMP/VIT-C/FOLIC ACID 1 TAB PO SCH (10:10)
[2016-11-04] MEDS: BISACODYL 5 MG TABEC PO SCH (10:11)
[2016-11-04] MEDS: LACTOBACILLUS RHAMNOSUS GG 1 EACH CAP PO SCH ×3 (10:11→21:05)
[2016-11-04 10:16] LABS: T4 (THYROXINE) 9.1 ug/dL (4.5-12.0)
[2016-11-04] MEDS: INSULIN DETEMIR 100 UNITS/ML 10 ML VIAL SUBQ SCH ×2 (10:21→21:11)
[2016-11-04] MEDS: INSULIN LISPRO SLIDING SCALE 100 UNITS/ML VIAL SUBQ PRN ×3 (11:34→21:10)
--- NOTE | 2016-11-04 14:00 | NUR ---
DIALYSIS NURSE PRESENT AT BEDSIDE.
--- NOTE | 2016-11-04 17:05 | NUR ---
DIALYSIS DONE. OUT PUT 1 LITTER.
[2016-11-04] MEDS: CALCIUM ACETATE 667 MG TAB PO SCH (17:24)
--- NOTE | 2016-11-04 17:50 | NUR ---
PT RESTING IN BED, AWAKE, ALERT, AND ORIENTED. PT'S SON AT BEDSIDE, BP CHECKED 147/71, NO S/S OF RESPIRATORY DISTRESS NOTED.
--- NOTE | 2016-11-04 19:34 | NUR ---
RECEIVED FROM AM RN IN BED SLEEPING. WAKES UP WHEN TOUCHED. PT. AFEBRILE. NO SOB. SLEPT BACK. ABLE TO USE CALL LIGHT FOR HELP PER AM RN. A/O X 4. ROM X 4. NO BLEEDING TO HD SITE. IVF SITE TO RIGHT WRIST #22 INTACT AND PATENT.
--- NOTE | 2016-11-04 22:01 | NUR ---
STILL AWAKE AT THIS TIME. WATCHING TV. ABLE TO USE CALL LIGHT FOR HELP. VERBALIZES WELL IN [place]. DENIES DOLOR AT THIS TIME.
--- NOTE | 2016-11-04 23:59 | NUR ---
PT. SLEEPING. WOKE UP EASILY WHEN TOUCHED. DENIES ANY DOLOR. NO SOB. HD SITE INTACT AND NO BLEEDING NOTED. CALL LIGHT WITH IN REACH BESIDE HER . ABLE TO USE IT FOR HELP.
[2016-11-05 04:25] VITALS: BP 159/76
--- NOTE | 2016-11-05 04:27 | NUR ---
VITAL SIGNS TAKEN . SLEEPING. WOKE UP EASILY. DENIES DOLOR. NO SOB. NO RESTLESSNESS NOTED. CALL LIGHT WITH IN REACH. BP 159/76.
[2016-11-05] MEDS: BLOOD GLUCOSE MONITORING 1 DEV DEV FS SCH ×4 (06:08→21:54)
[2016-11-05 07:21] LABS: BASOPHILS # (AUTO) 0.3 K/uL (0.00-0.22); BASOPHILS % (AUTO) 2.5 % (0.0-2.0); EOSINOPHILS # (AUTO) 0.7 K/uL (0-0.4); EOSINOPHILS % (AUTO) 6.8 % (0.0-4.0); HEMATOCRIT 38.6 % (36-48); HEMOGLOBIN 12.6 g/dL (12.0-16.0); LYMPHOCYTES # (AUTO) 2.4 K/uL (2.5-16.5); LYMPHOCYTES % (AUTO) 23.4 % (20.5-51.1); MEAN CORPUSCULAR HEMOGLOBIN 29 pg (27-31); MEAN CORPUSCULAR HGB CONC 33 g/dL (33-37); MEAN CORPUSCULAR VOLUME 90 fL (80-94); MONOCYTES % (AUTO) 9.5 % (1.7-9.3); NEUTROPHILS # (AUTO) 5.7 K/uL (1.8-7.7); NEUTROPHILS % (AUTO) 57.8 % (42.2-75.2); PLATELET COUNT (AUTO) 230 K/uL (140-450); RED BLOOD CELL COUNT(AUTO) 4.31 MIL/uL (4.20-5.40); RED CELL DISTRIBUTION WIDTH 15.1 % (11.6-13.7); WHITE BLOOD COUNT (AUTO) 10.1 K/uL (4.8-10.8)
[2016-11-05 07:38] LABS: ANION GAP 13.6 (8-16); CARBON DIOXIDE 29.4 mmol/L (21-32)
--- NOTE | 2016-11-05 07:40 | NUR ---
RECEIVED REPORT FROM KASHMIR SHAW. PT IS A/OX4, AMBULATORY, IV IS THE ON THE RIGHT WRIST, PATENT, INTACT, FLUSHING WELL, SKIN IS INTACT, NO S/S OF RESPIRATORY DISTRESS OR DISCOMFORT NOTED, SAFETY/FALL PRECAUTIONS ARE IN PLACE, DISCUSSED PLAN OF CARE WITH PT, PT VERBALIZED UNDERSTANDING, CALL LIGHT IS WITHIN REACH, WILL CONTINUE TO MONITOR.
[2016-11-05 07:44] LABS: CREATININE 4.9 mg/dL (0.6-1.3)
[2016-11-05 07:50] LABS: MAGNESIUM 1.8 mg/dL (1.8-2.4); PHOSPHORUS 4.6 mg/dL (2.5-4.9)
[2016-11-05 08:00] VITALS: BP 141/72
[2016-11-05] MEDS: CALCIUM CARB 600 MG TAB PO SCH (08:34)
[2016-11-05] MEDS: ATORVASTATIN 80 MG TAB PO SCH (08:34)
[2016-11-05] MEDS: CALCIUM ACETATE 667 MG TAB PO SCH ×2 (08:34→17:30)
[2016-11-05] MEDS: amLODIPine 5 MG TAB PO SCH (08:34)
[2016-11-05] MEDS: LACTOBACILLUS RHAMNOSUS GG 1 EACH CAP PO SCH ×2 (08:35→21:50)
[2016-11-05] MEDS: ASPIRIN 81 MG TAB.CHEW PO SCH (08:35)
[2016-11-05] MEDS: FAMOTIDINE 20 MG TAB PO SCH (08:35)
[2016-11-05] MEDS: FUROSEMIDE 40 MG TAB PO SCH (08:35)
--- NOTE | 2016-11-05 08:35 | NUR ---
DUE MEDICATIONS GIVEN, PT TOLERATED WELL, CALL LIGHT WITHIN REACH, WILL CONTINUE TO MONITOR.
[2016-11-05] MEDS: BISACODYL 5 MG TABEC PO SCH (08:36)
[2016-11-05] MEDS: LISINOPRIL 20 MG TAB PO SCH ×2 (08:36→21:51)
[2016-11-05] MEDS: VIT-B COMP/VIT-C/FOLIC ACID 1 TAB PO SCH (08:36)
[2016-11-05] MEDS: CARVEDILOL 3.125 MG TAB PO SCH (08:36)
[2016-11-05] MEDS: cloNIDine 0.1 MG TAB PO SCH ×3 (08:37→17:00)
[2016-11-05] MEDS: INSULIN DETEMIR 100 UNITS/ML 10 ML VIAL SUBQ SCH ×2 (10:06→21:53)
--- NOTE | 2016-11-05 10:35 | NUR ---
PT SLEEPING IN BED BUT EASILY AWAKEN, CALL LIGHT IS WITHIN REACH.
[2016-11-05] MEDS: INSULIN LISPRO SLIDING SCALE 100 UNITS/ML VIAL SUBQ PRN ×2 (11:59→17:34)
--- NOTE | 2016-11-05 12:35 | NUR ---
PT IS RESTING IN BED, FAMILY MEMBER IS AT BEDSIDE, CALL LIGHT WITHIN REACH.
[2016-11-05 12:46] LABS: HEMOGLOBIN A1C 7.1 % (4.8-5.6)
--- NOTE | 2016-11-05 14:35 | NUR ---
PT RESTING IN BED, FRIEND IS AT BEDSIDE, CALL LIGHT WITHIN REACH, WILL CONTINUE TO MONITOR.
[2016-11-05 16:00] VITALS: BP 106/43
--- NOTE | 2016-11-05 16:30 | NUR ---
PT RESTING IN BED AT THIS TIME, DAUGHTER IS AT BEDSIDE, CALL LIGHT WITHIN REACH.
--- NOTE | 2016-11-05 18:30 | NUR ---
PT RESTING IN BED, WATCHING TV, DAUGHTER IS AT BEDSIDE.
--- NOTE | 2016-11-05 19:25 | NUR ---
ENDORSED PT TO KASHMIR SHAW. FOR CONTINUITY OF CARE, PT STABLE AT THIS TIME.
--- NOTE | 2016-11-05 19:30 | NUR ---
RECEIVED FROM AM RN IN BED AWAKE AND ALERT. TALKING TO FEMALE VISITOR. POLISH SPEAKING. NO COMPLAINTS OF PAIN DONE AT THIS TIME. CALL LIGHT WITH IN REACH. AFEBRILE.
[2016-11-05] MEDS ORDERED: FUROSEMIDE 20 MG/2 ML VIAL IVP SCH (21:00)
[2016-11-05] MEDS ORDERED: FUROSEMIDE 20 MG/2 ML VIAL IVP ONE (21:00)
--- NOTE | 2016-11-06 01:02 | NUR ---
PT. SLEEPING AT THIS TIME. NO SOB. CALL LIGHT WITH IN REACH.
[2016-11-06 01:35] VITALS: BP 148/67
--- NOTE | 2016-11-06 04:02 | NUR ---
SLEEPING WELL AT THIS TIME. NO SOB. ABLE TO USE CALL LIGHT FOR HELP.
[2016-11-06] MEDS: BLOOD GLUCOSE MONITORING 1 DEV DEV FS SCH ×2 (06:12→11:28)
[2016-11-06] MEDS: INSULIN LISPRO SLIDING SCALE 100 UNITS/ML VIAL SUBQ PRN ×2 (06:13→11:31)
--- NOTE | 2016-11-06 07:40 | NUR ---
ENDORSED TO THE NEXT RN FOR CONTINUITY OF CARE. MD LUIS IN COVERING FOR MD HASSAN.
--- NOTE | 2016-11-06 07:41 | NUR ---
RECEIVED REPORT ON PT FROM CREDIT PROCESSOR NURSE AT BEDSIDE. INTRODUCED MYSELF AND UPDATED THE BOARD. PT IS ALERT AWAKE AND ORIENTED. PT'S BS IS 104. PT HAS R WRIST 22 G IV SL AND L AV SHUNT FOR DIALYSIS. PT DENIES PAIN, HAS NO COMPLAINTS AT THIS TIME. VS WNL. CALL LIGHT WITHIN REACH. WILL CONTINUE TO MONITOR.
[2016-11-06 08:00] VITALS: BP 134/94
[2016-11-06] MEDS: ATORVASTATIN 80 MG TAB PO SCH (08:18)
[2016-11-06] MEDS ORDERED: CLON0.1T42 PO (08:19)
[2016-11-06] MEDS: LISINOPRIL 20 MG TAB PO SCH (08:19)
[2016-11-06] MEDS ORDERED: PHO667 PO (08:19)
[2016-11-06] MEDS ORDERED: LISI-420 PO (08:19)
[2016-11-06] MEDS ORDERED: FAMO20TA13 PO (08:19)
[2016-11-06] MEDS: VIT-B COMP/VIT-C/FOLIC ACID 1 TAB PO SCH (08:19)
[2016-11-06] MEDS ORDERED: LEVEMIR SUBQ (08:19)
[2016-11-06] MEDS: LACTOBACILLUS RHAMNOSUS GG 1 EACH CAP PO SCH (08:19)
[2016-11-06] MEDS ORDERED: CARV3.122 PO (08:19)
[2016-11-06] MEDS ORDERED: LIP80 PO (08:19)
[2016-11-06] MEDS ORDERED: AMLO5TAB4 PO (08:19)
[2016-11-06] MEDS: FAMOTIDINE 20 MG TAB PO SCH (08:19)
[2016-11-06] MEDS: BISACODYL 5 MG TABEC PO SCH (08:19)
[2016-11-06] MEDS: cloNIDine 0.1 MG TAB PO SCH (08:20)
[2016-11-06] MEDS: CARVEDILOL 3.125 MG TAB PO SCH (08:20)
[2016-11-06] MEDS: amLODIPine 5 MG TAB PO SCH (08:20)
[2016-11-06] MEDS: CALCIUM CARB 600 MG TAB PO SCH (08:21)
[2016-11-06] MEDS: CALCIUM ACETATE 667 MG TAB PO SCH (08:21)
[2016-11-06] MEDS: ASPIRIN 81 MG TAB.CHEW PO SCH (08:21)
[2016-11-06] MEDS ORDERED: LAS20I IVP (08:22)
[2016-11-06] MEDS: INSULIN DETEMIR 100 UNITS/ML 10 ML VIAL SUBQ SCH (08:24)
--- NOTE | 2016-11-06 09:50 | NUR ---
RECHECKED BP, 110/54, PULSE 70. PT IS STABLE, NO COMPLAINTS AT THIS TIME. READY FOR DISCHARGE WHEN SON COMES TO PICK HER UP.
[2016-11-06 10:42] VITALS: BP 134/94
--- NOTE | 2016-11-06 11:30 | NUR ---
WENT OVER DISCHARGE PAPERWORK WITH PT AND HER SON AT BEDSIDE. PT SIGNED ALL APPROPRIATE PAPERWORK. PT VERBALIZED UNDERSTANDING. CUT ALL WRIST BANDS. REMOVED IV, CANNULA INTACT.
--- NOTE | 2016-11-06 11:48 | NUR ---
WHEELED PT OUT, ACCOMPANIED BY SON. PT IS IN STABLE CONDITION.
== END 2016-11-06 11:48 | disposition home or self-care (01) | DRG 52 ==
LOC: MED 19:55 → MTU 11-03 00:10 → OBSVTOIN 11-03 07:32
PROVIDERS: ADMIT Family Medicine; ATTEND Family Medicine
PROC: 5A1D00Z (ICD-10-PCS; principal; 2016-11-04)
DX: I67.4 Hypertensive encephalopathy (principal); N17.0 Acute kidney failure with tubular necrosis; I50.43 Acute on chronic combined systolic (congestive) and diastolic (congestive) heart failure; E44.0 Moderate protein-calorie malnutrition; E11.65 Type 2 diabetes mellitus with hyperglycemia; N18.6 End stage renal disease; K21.9 Gastro-esophageal reflux disease without esophagitis; E78.5 Hyperlipidemia, unspecified; E83.39 Other disorders of phosphorus metabolism; E11.22 Type 2 diabetes mellitus with diabetic chronic kidney disease; E11.21 Type 2 diabetes mellitus with diabetic nephropathy; E11.319 Type 2 diabetes mellitus with unspecified diabetic retinopathy without macular edema; I16.0 Hypertensive urgency; E11.51 Type 2 diabetes mellitus with diabetic peripheral angiopathy without gangrene; E87.8 Other disorders of electrolyte and fluid balance, not elsewhere classified; I13.2 Hypertensive heart and chronic kidney disease with heart failure and with stage 5 chronic kidney disease, or end stage renal disease; Z91.19 Patient's noncompliance with other medical treatment and regimen; Z99.2 Dependence on renal dialysis; Z79.82 Long term (current) use of aspirin; Z79.4 Long term (current) use of insulin; Z79.899 Other long term (current) drug therapy; Z68.29 Body mass index [BMI] 29.0-29.9, adult; Z86.73 Personal history of transient ischemic attack (TIA), and cerebral infarction without residual deficits; Z82.49 Family history of ischemic heart disease and other diseases of the circulatory system; Z83.3 Family history of diabetes mellitus
CPT/HCPCS: 96374; 99285; G0378; 36415; 70450; 71010; 80048; 80053; 81001; 82948; 83036; 83605; 83690; 83735; 83880; 84100; 84436; 84439; 84443; 84479; 84484; 85025; 85610; 85730; 87040; 87081; 87086; 93005; J0360; J1644; J1815

== ENCOUNTER 2017-06-14 00:50 | Emergency (ER) | payer MEDICAID ==
[~2017-06-14] VITALS: Ht 149.9 cm; Wt 72.3 kg
[~2017-06-14 00:50] MED LIST changes: +AMLO5TAB4 PO; -BLOO1STR10 FS; +BLOO1STR56 FS; -CEPH250C16 PO; +CLON0.1T42 PO; -CLON0.3T23 PO; +FAMO20TA13 PO; -HUMSLIDE SUBQ; +LAS20I IVP; +LISI-420 PO; +PHO667 PO
[2017-06-14 00:54] VITALS: BP 194/74
--- NOTE | 2017-06-14 01:02 | NUR ---
AMBULATED TO ER OF3
[2017-06-14] MEDS ORDERED: cloNIDine 0.1 MG TAB PO ONE (01:15)
--- NOTE | 2017-06-14 01:15 | NUR ---
PT C/O HIGH CLOOD PRESSURE AND HEADACHE. PT STATES THAT THE PAST WEEK HER BP HAS BEEN GOING UP TO "180-200" SYSTOLIC. PT HAS HEADACHE 3/10, AND "LITTLE" DIZZINESS. PT IS AA&OX4, NO SLURRED SPEECH, ACTING APPROPRIATE. HX DM, DIALYSIS, HTN.
[2017-06-14] MEDS ORDERED: cloNIDine 0.1 MG TAB ONE (01:22)
[2017-06-14 02:21] VITALS: BP 124/70
--- NOTE | 2017-06-14 02:21 | NUR ---
Patient discharged with v/s stable. Written and verbal after care instructions given and explained. Patient alert, oriented and verbalized understanding of instructions. Ambulatory with steady gait. All questions addressed prior to discharge. ID band removed. Patient advised to follow up with PMD. Rx of CLONIDINE HCL 0.2MG given. Patient educated on indication of medication including possible reaction and side effects. Opportunity to ask questions provided and answered.
== END 2017-06-14 02:21 | disposition home or self-care (01) ==
LOC: MED 00:50
DX: I10 Essential (primary) hypertension (principal); E11.9 Type 2 diabetes mellitus without complications
CPT/HCPCS: 99283

== ENCOUNTER 2018-03-02 11:04 | Inpatient (IN) | payer MEDICAID ==
[~2018-03-02] VITALS: Ht 162.6 cm; Wt 67.2 kg
--- NOTE | 2018-03-02 11:13 | NUR ---
PT AMBULATES TO BED 2
[2018-03-02 11:14] VITALS: BP 151/53
--- NOTE | 2018-03-02 11:19 | NUR ---
PT PRESENT TO ED DUE TO BILAT KNEE PAIN AND NOSE PAIN SP FALL YESTERDAY; RT UPPER LIP SWOLLEN;DENIES KO/LOC/N/V; HX OF HTN/DM AND DIALYSIS; ON DIALYSIS EVERY SUNDAY ,SUNDAY AND SUNDAY BUT WAS NOT ABLE TO ATTEND HER DIALYSIS TODAY; SHUNT ON LT UPPER ARM;ADVISED TO COME TO ER TO BE CHECK;YONI MARINA INSTIUTED;ALL MONITORS IN PLACED;ER MD WILL BE NOTIFIED OF PT'S CONDITION.
--- NOTE | 2018-03-02 11:46 | NUR ---
DR HARRIS AT BEDSIDE.
--- NOTE | 2018-03-02 12:20 | NUR ---
TO CT SCAN
[2018-03-02 12:32] LABS: BASOPHILS # (AUTO) 0.1 K/uL (0.00-0.22); BASOPHILS % (AUTO) 1.2 % (0.0-2.0); EOSINOPHILS # (AUTO) 0.7 K/uL (0-0.4); EOSINOPHILS % (AUTO) 7.9 % (0.0-4.0); HEMATOCRIT 35.3 % (36-48); HEMOGLOBIN 11.4 g/dL (12.0-16.0); LYMPHOCYTES # (AUTO) 2.3 K/uL (2.5-16.5); LYMPHOCYTES % (AUTO) 25.8 % (20.5-51.1); MEAN CORPUSCULAR HEMOGLOBIN 30 pg (27-31); MEAN CORPUSCULAR HGB CONC 32 g/dL (33-37); MEAN CORPUSCULAR VOLUME 92.5 fL (80-94); MONOCYTES % (AUTO) 10.7 % (1.7-9.3); NEUTROPHILS # (AUTO) 4.9 K/uL (1.8-7.7); NEUTROPHILS % (AUTO) 54.4 % (42.2-75.2); PLATELET COUNT (AUTO) 289 K/uL (140-450); RED BLOOD CELL COUNT(AUTO) 3.82 MIL/uL (4.20-5.40); RED CELL DISTRIBUTION WIDTH 14.6 % (11.6-13.7)
[2018-03-02 12:36] LABS: APPEARANCE,URINE CLEAR (CLEAR); BILIRUBIN,URINE NEGATIVE (NEGATIVE); BLOOD, URINE 1+ (NEGATIVE); COLOR,URINE YELLOW (YELLOW); LEUKOCYTE ESTERASE ,URINE NEGATIVE (NEGATIVE); NITRITE, URINE NEGATIVE (NEGATIVE); PH,URINE 8.5 (5.0-9.0); UGLUCOSE 1+ (NEGATIVE)
[2018-03-02 12:43] LABS: ANION GAP 9.4 (8-16); CARBON DIOXIDE 31.5 mmol/L (21-32); POTASSIUM 4.9 mmol/L (3.5-5.1)
[2018-03-02 12:50] LABS: CREATININE 7.1 mg/dL (0.6-1.3)
[2018-03-02 12:51] LABS: ALBUMIN 3.1 g/dL (3.4-5.0); TOTAL BILIRUBIN 0.4 mg/dL (0.0-1.0)
[2018-03-02] MEDS ORDERED: ASPIRIN 325 MG TAB PO ONE (13:05)
[2018-03-02 13:07] LABS: WBC,URINE 0-5 (RARE) /HPF (0-5)
[2018-03-02 13:09] LABS: RBC,URINE 0-5 (RARE) /HPF (0-5)
[2018-03-02] MEDS ORDERED: ACETAMINOPHEN 325 MG TAB PO PRN (13:30)
[2018-03-02] MEDS ORDERED: ZOLPIDEM 5 MG TAB PO PRN (13:30)
[2018-03-02] MEDS ORDERED: DOCUSATE SODIUM 100 MG GELCAP PO PRN (13:30)
[2018-03-02] MEDS ORDERED: LORazepam 2 MG/ML VIAL IM/IVP PRN (13:30)
[2018-03-02] MEDS ORDERED: NITROGLYCERIN 0.4 MG TAB SL PRN (13:35)
[2018-03-02] MEDS ORDERED: FAMOTIDINE 20 MG TAB PO ONE (13:35)
[2018-03-02] MEDS ORDERED: hydrALAZINE 20 MG/ML VIAL IVP ONE (13:40)
[2018-03-02] MEDS ORDERED: ENALAPRILAT 2.5 MG/2 ML VIAL IVP ONE (13:40)
--- NOTE | 2018-03-02 13:40 | NUR ---
GARY TERRELL MADE AWARE OF PT'S BP OF 199/59;
[2018-03-02 13:57] LABS: PROTHROMBIN TIME 9.9 secs (10.8-13.4)
[2018-03-02] MEDS ORDERED: cloNIDine 0.1 MG TAB PO SCH ×3 (13:58→17:00)
[2018-03-02 14:00] LABS: BARBITURATE, URINE NEG. ng/ml (NEG <=200); BENZODIAZEPINE, URINE NEG. ng/mL (NEG <=200); CANNABINOID, URINE NEG. ng/mL (NEG <=50); COCAINE, URINE NEG. ng/mL (NEG <=300); OPIATE, URINE NEG. ng/mL (NEG <=2000); PHENCYCLIDINE SCREEN,URINE NEG. ng/mL (NEG <=25)
--- NOTE | 2018-03-02 14:05 | NUR ---
PT TAKEN TO FLOOR BY KASHMIR MCGEE AND EMT JESUS
[2018-03-02 14:08] LABS: MAGNESIUM 2.6 mg/dL (1.8-2.4); PHOSPHORUS 5.4 mg/dL (2.5-4.9); THYROID STIMULATING HORMONE 2.2 uIU/mL (0.34-3.74)
[2018-03-02 14:15] VITALS: BP 143/44
--- NOTE | 2018-03-02 14:15 | NUR ---
RECEIVED PT FROM ED NURSE. PT IN STABLE CONDITION. ABLE TO AMBULATE TO BED AND RESTROOM BUT COMPLAINTS OF GENERALIZED WEAKNESS. NO COMPLAINTS OF PAIN OR DISCOMFORT AT THIS TIME. PT IS S/P FALL YESTERDAY. SKIN INTACT. FALL PRECAUTION INITIATED. AV SHUNT ON L ARM. ESRD ON HD [id number]. IV SITE PATENT AND ASYMPTOMATIC, RUNNING IVF PER MD ORDERS. PT IS EG[place]IAN SPEAKING BUT PREFERS SON AT BEDSIDE TO TRANSLATE. PT IS SLIGHTLY HARD OF HEARING. ALL SAFETY PRECAUTIONS IN PLACE, WILL CONTINUE TO MONITOR.
--- NOTE | 2018-03-02 14:18 | NUR ---
Patient will be admitted to care of dR ARMENTA. Admited to TELE. Will go to [id number]. Belongings list completed. Report to KASHMIR GUARDADO.
[2018-03-02] MEDS: NACL 0.9% 1,000 ML IV SCH (14:46)
[2018-03-02] MEDS ORDERED: DOCU-299 PO (15:41)
[2018-03-02] MEDS ORDERED: PHO667 PO (15:41)
[2018-03-02] MEDS ORDERED: LISI-420 PO (15:41)
[2018-03-02] MEDS ORDERED: CARV3.12 PO (15:41)
[2018-03-02] MEDS ORDERED: ERGO500028 PO (15:41)
[2018-03-02] MEDS ORDERED: LIP80 PO (15:41)
[2018-03-02] MEDS ORDERED: ASPI81CT89 PO (15:41)
[2018-03-02] MEDS ORDERED: CLON0.3T23 PO (15:41)
[2018-03-02] MEDS ORDERED: AMLO10TA3 PO (15:41)
[2018-03-02] MEDS ORDERED: FURO-570 PO (15:41)
--- NOTE | 2018-03-02 16:00 | NUR ---
PT SEEN AMBULATING TO BATHROOM WITH STEADY GAIT. NO COMPLAINTS OF PAIN OR DISCOMFORT. WILL CONTINUE TO MONITOR.
[2018-03-02] MEDS ORDERED: MECLIZINE 25 MG TAB PO PRN (16:25)
[2018-03-02] MEDS ORDERED: DEXTROSE 50% 50 ML SYR IVP PRN (16:45)
[2018-03-02] MEDS: CALCIUM ACETATE 667 MG TAB PO SCH (17:00)
[2018-03-02] MEDS: hydrALAZINE 10 MG TAB PO SCH (17:00)
[2018-03-02] MEDS ORDERED: CALCIUM ACETATE 667 MG TAB PO SCH (17:00)
[2018-03-02] MEDS: cloNIDine 0.1 MG TAB PO SCH (17:19)
--- NOTE | 2018-03-02 17:30 | NUR ---
PT RECEIVED CLONIDINE AND REFUSED THE HYDRALAZINE. WILL CONTINUE TO RE-ASSESS BP.
--- NOTE | 2018-03-02 17:50 | NUR ---
ORTHOSTATIC BP VALUES GIVEN TO DR. ABARCA.
--- NOTE | 2018-03-02 19:20 | NUR ---
GAVE REPORT TO REHANGER RN AT BEDSIDE. PT IN STABLE CONDITION.
--- NOTE | 2018-03-02 19:30 | NUR ---
RECEIVED REPORT FROM DAYSHIFT NURSE AT BEDSIDE FOR CONTINUITY OF CARE. PT AAOX4. PT IV NOTED RAC 20G NS 80ML/HR. NO SOB NO S/S OF DISTRESS ON RA. ARM RESTRICTION ON RIGHT D/T AV SHUNT. BED LOWERED CALL LIGHT WITHIN REACH WILL CONTINUE TO MONITOR.
[2018-03-02 20:00] VITALS: BP 126/51
[2018-03-02] MEDS: DOCUSATE SODIUM 100 MG GELCAP PO SCH (20:33)
[2018-03-02] MEDS: LISINOPRIL 20 MG TAB PO SCH (20:34)
[2018-03-02] MEDS: ATORVASTATIN 80 MG TAB PO SCH (20:34)
[2018-03-02] MEDS: FUROSEMIDE 40 MG TAB PO SCH (20:34)
[2018-03-02] MEDS: BLOOD GLUCOSE MONITORING 1 DEV DEV FS SCH ×2 (20:37→21:00)
[2018-03-02] MEDS: INSULIN LISPRO SLIDING SCALE 100 UNITS/ML VIAL SUBQ PRN (20:37)
[2018-03-02] MEDS ORDERED: FUROSEMIDE 40 MG TAB PO SCH (21:00)
[2018-03-03] VITALS: BP 157/54
--- NOTE | 2018-03-03 | NUR ---
PT SLEEPING NO SOB NO S/S OF DISTRESS ON RA. WILL CONTINUE TO MONITOR.
--- NOTE | 2018-03-03 00:58 | NUR ---
SPOKE TO NURSE WEST FOR HEMODIALYSIS. NURSE IS AWARE OF SCHEDULED DIALYSIS TOMORROW FOR PT SCHEDULED BY MD WONG.
[2018-03-03 04:00] VITALS: BP 171/63
--- NOTE | 2018-03-03 07:20 | NUR ---
RECEIVED REPORT FROM PM NURSE AT BEDSIDE. PT LATVIAN SPEAKING ONLY. HAS AV SHUNT ON LFT HAND. PER PM NURSE , PT HAS NEGATIVE ORTHO BP. RENAL SOCIAL WORKER AT THE BEDSIDE, DOING US. HAS RT HAND AC 20 G, IVF INFUSING AT 10ML/HR. PT DUE FOR HD TODAY FOR 1000 AM. CALL LIGHT WITHIN PT REACH. INFORMED HER TO USE CALL LIGHT FOR ANY HELP. VERBALIZED UNDERSTANDING. BED AT LOWER POSITION. NO SIGN OF DISTRESS NOTED .WILL CONTINUE TO MONITOR PT.
[2018-03-03 08:00] VITALS: BP 154/47
[2018-03-03 08:05] LABS: BASOPHILS # (AUTO) 0.1 K/uL (0.00-0.22); BASOPHILS % (AUTO) 0.8 % (0.0-2.0); EOSINOPHILS # (AUTO) 0.4 K/uL (0-0.4); EOSINOPHILS % (AUTO) 4.7 % (0.0-4.0); HEMATOCRIT 34.3 % (36-48); HEMOGLOBIN 11.2 g/dL (12.0-16.0); LYMPHOCYTES # (AUTO) 1.8 K/uL (2.5-16.5); LYMPHOCYTES % (AUTO) 21.1 % (20.5-51.1); MEAN CORPUSCULAR HEMOGLOBIN 30 pg (27-31); MEAN CORPUSCULAR HGB CONC 33 g/dL (33-37); MEAN CORPUSCULAR VOLUME 91.9 fL (80-94); MONOCYTES # (AUTO) 0.6 K/uL (0.8-1.0); MONOCYTES % (AUTO) 7.2 % (1.7-9.3); NEUTROPHILS # (AUTO) 5.6 K/uL (1.8-7.7); NEUTROPHILS % (AUTO) 66.2 % (42.2-75.2); PLATELET COUNT (AUTO) 298 K/uL (140-450); RED BLOOD CELL COUNT(AUTO) 3.73 MIL/uL (4.20-5.40); RED CELL DISTRIBUTION WIDTH 14.8 % (11.6-13.7); WHITE BLOOD COUNT (AUTO) 8.4 K/uL (4.8-10.8)
[2018-03-03 08:07] LABS: ANION GAP 12.1 (8-16)
[2018-03-03 08:11] LABS: T4 (THYROXINE) 7.8 ug/dL (4.5-12.0)
[2018-03-03 08:14] LABS: MAGNESIUM 2.6 mg/dL (1.8-2.4); PHOSPHORUS 5.2 mg/dL (2.5-4.9)
[2018-03-03 08:17] LABS: POTASSIUM 6.1 mmol/L (3.5-5.1)
[2018-03-03 08:32] LABS: CHOL/HDL RATIO 2.9 (1-4.5)
[2018-03-03] MEDS: ATORVASTATIN 80 MG TAB PO SCH ×2 (09:00→21:59)
[2018-03-03] MEDS ORDERED: CALCIUM CARB 600 MG TAB PO SCH (09:00)
[2018-03-03] MEDS: DOCUSATE SODIUM 100 MG GELCAP PO SCH ×2 (09:00→21:58)
[2018-03-03] MEDS ORDERED: ATORVASTATIN 20 MG TAB PO SCH (09:00)
[2018-03-03] MEDS: hydrALAZINE 10 MG TAB PO SCH ×3 (09:00→17:00)
[2018-03-03] MEDS: CALCIUM ACETATE 667 MG TAB PO SCH ×3 (09:00→16:50)
[2018-03-03] MEDS: cloNIDine 0.1 MG TAB PO SCH ×3 (09:00→15:46)
[2018-03-03] MEDS: FAMOTIDINE 20 MG TAB PO SCH (09:00)
[2018-03-03] MEDS: VIT-B COMP/VIT-C/FOLIC ACID 1 TAB PO SCH (09:00)
[2018-03-03] MEDS ORDERED: ASPIRIN 81 MG TAB.CHEW PO SCH ×2 (09:00)
[2018-03-03] MEDS: FUROSEMIDE 40 MG TAB PO SCH ×2 (09:00→21:59)
[2018-03-03] MEDS: amLODIPine 5 MG TAB PO SCH (09:00)
[2018-03-03] MEDS ORDERED: NON-FORMULARY ITEM (Amlodipine Besylate 10 MG) PO SCH (09:00)
[2018-03-03] MEDS: ASPIRIN 81 MG TAB.CHEW PO SCH (09:00)
[2018-03-03] MEDS: CARVEDILOL 3.125 MG TAB PO SCH (09:00)
[2018-03-03] MEDS: LISINOPRIL 20 MG TAB PO SCH ×2 (09:00→21:59)
--- NOTE | 2018-03-03 09:30 | NUR ---
HELD AM MEDS PT ON HD. WILL CONTINUE TO MONITOR PT.
[2018-03-03] MEDS: BLOOD GLUCOSE MONITORING 1 DEV DEV FS SCH ×3 (11:52→22:10)
[2018-03-03 12:00] VITALS: BP 183/69
[2018-03-03] MEDS: INSULIN LISPRO SLIDING SCALE 100 UNITS/ML VIAL SUBQ PRN ×2 (12:06→22:12)
--- NOTE | 2018-03-03 12:09 | NUR ---
CHECKED ON PT, WITH HD NURSE. TOLERATING PROCEDURE WELL. PER HD NURSE, BP TRENDING HIGH, WANTS TO ADMINISTER BP MEDS, HYDRALAZINE ADMINISTERED TO PT. BS 207, ADMINISTER 4 UNITS OF INSULIN PER SLIDING SCALE. SON AT BEDSIDE. NO SIGN OF DISTRESS NOTED. WILL CONTINUE TO MONITOR PT.
[2018-03-03] MEDS: NACL 0.9% 1,000 ML IV SCH (13:27)
[2018-03-03 13:38] LABS: CARBON DIOXIDE 28.9 mmol/L (21-32); POTASSIUM 3.9 mmol/L (3.5-5.1)
[2018-03-03 13:40] LABS: CREATININE 5.3 mg/dL (0.6-1.3)
--- NOTE | 2018-03-03 14:15 | NUR ---
CHECKED ON PT. HD COMPLETED. PER HD NURSE, PT OUTPUT 1000 ML. CHECKED PT BP 178/62, ADMINISTERED MEDS ORDERED. NO SIGN OF DISTRESS NOTED. CALL LIGHT WITHIN PT REACH. WILL CONTINUE TO MONITOR PT.
[2018-03-03 16:00] VITALS: BP 194/69
--- NOTE | 2018-03-03 16:05 | NUR ---
CHECKED ON PT. BP 194/69, RR 22, HR 64. MD NOTIFIED OF HIGH BP. WILL PUT ORDER FOR IV BP MEDS. PT DENIES ANY CHRISTIANSON, NO SIGN OF DISTRESS NOTED. LYING ON HER BED. WILL CONTINUE TO MONITOR PT.
[2018-03-03] MEDS ORDERED: hydrALAZINE 20 MG/ML VIAL IVP SCH (16:30)
--- NOTE | 2018-03-03 17:00 | NUR ---
[place] [address]. NOTIFIED. STATES ITS NORMAL, TO CONTINUE TO MONITOR PT. ADMINISTERED MEDS ORDERED, FAMILY AT BEDSIDE, HELPING PT TO TAKE MEDS. NO SIGN OF DISTRESS NOTED. WILL CONTINUE TO MONITOR PT.
--- NOTE | 2018-03-03 17:46 | NUR ---
PT ADMINISTERED IV HYDRALAZINE 0.5 ML, HOLD PO HYDRALAZINE. WILL REASSESS PT IN HOUR .
--- NOTE | 2018-03-03 18:46 | NUR ---
ASSESS PT BP. 163/54. NO SIGN OF DISTRESS. WILL CONTINUE TO MONITOR PT.
--- NOTE | 2018-03-03 19:10 | NUR ---
ENDORSED PT TO PM NURSE FOR CONTINUITY OF CARE. PT IN STABLE CONDITION.
--- NOTE | 2018-03-03 19:15 | NUR ---
RECEIVED PT IN STABLE CONDITION FROM AM NURSE. PT IS AWAKE,ALERT AND ORIENTED X4. SINHALA SPEAKING, WITH SOME BELARUSIAN. WITH NO SC/O ANY PAIN NOR DISCOMFORT NOTED. HAS HL ON THE RT AC#20. CLEAR AND PATENT. HD ACCESS ON THE LT UPPER ARM , WITH GOOD BRUIT AND THRILL. WITH DRESSING IN PLACED. BED ON LOW POSITION. CALL LIGHT PLACED WITHIN EASY REACH. INSTRUCTED TO CALL FOR ANY ASSISTANCE. WILL CONTINUE TO MONITOR.
[2018-03-03 19:59] VITALS: BP 159/59
--- NOTE | 2018-03-03 21:30 | NUR ---
PT IS ASLEEP. NO S/S OF ANY DISCOMFORT NOTED. WILL CONTINUE TO MONITOR.
--- NOTE | 2018-03-03 22:12 | NUR ---
BLOOD SUGAR WAS CHECKED RESULT 169. HUMALOG 2 UNITS COVERAGE GIVEN SUB Q. HS SNACK PROVIDED.
[2018-03-04 00:30] VITALS: BP 160/60
--- NOTE | 2018-03-04 00:30 | NUR ---
PT ASLEEP. WITH VITAL SIGNS STABLE. NO S/S OF ANY DISCOMFORT NOR PAIN NOTED.
--- NOTE | 2018-03-04 02:00 | NUR ---
MADE ROUNDS. PT ASLEEP. NO DISTRESS NOTED. WILL CONTINUE TO MONITOR.
[2018-03-04 04:14] VITALS: BP 175/70
[2018-03-04] MEDS: ONDANSETRON 4 MG/2 ML VIAL IM/IVP PRN (04:14)
--- NOTE | 2018-03-04 04:25 | NUR ---
BP ELEVATED 175/70, HR-82. PT JUST MEDICATED FOR NAUSEA. TALKED TO DR. BACON TO LET HER KNOW. NO ORDER MADE. WILL CONTINUE TO MONITOR..
--- NOTE | 2018-03-04 06:30 | NUR ---
PT AWAKE. SHE SAID SHE HAS NO MORE NAUSEA.
--- NOTE | 2018-03-04 07:20 | NUR ---
ENDORSED PT IN STABLE CONDITION TO AM NURSE FOR CONTINUITY OF CARE.
--- NOTE | 2018-03-04 07:21 | NUR ---
RECEIVED REPORT FROM PM NURSE AT BEDSIDE. PT SLEEPING, SON AT BEDSIDE. STATES TO HAVE FEELING NAUSEATED, PROVIDED WITH BAG AND INSTRUCTED TO USE BAG FOR THROW UP. DENIES ANY PAIN OR DIZZINESS. IVF INFUSING AT 10 ML/HR. IV ACCESS SITE INTACT AND INFUSING WELL. PLACED CALL LIGHT WITHIN PT REACH. INFORMED TO USE FOR ANY HELP. WILL CONTINUE TO MONITOR PT.
[2018-03-04 07:43] LABS: BASOPHILS # (AUTO) 0.1 K/uL (0.00-0.22); BASOPHILS % (AUTO) 1.5 % (0.0-2.0); EOSINOPHILS # (AUTO) 0.6 K/uL (0-0.4); EOSINOPHILS % (AUTO) 8.1 % (0.0-4.0); HEMATOCRIT 34.2 % (36-48); HEMOGLOBIN 11.2 g/dL (12.0-16.0); LYMPHOCYTES # (AUTO) 1.9 K/uL (2.5-16.5); LYMPHOCYTES % (AUTO) 24.2 % (20.5-51.1); MEAN CORPUSCULAR HEMOGLOBIN 30 pg (27-31); MEAN CORPUSCULAR HGB CONC 33 g/dL (33-37); MEAN CORPUSCULAR VOLUME 92.1 fL (80-94); MONOCYTES # (AUTO) 0.8 K/uL (0.8-1.0); MONOCYTES % (AUTO) 10.4 % (1.7-9.3); NEUTROPHILS # (AUTO) 4.3 K/uL (1.8-7.7); NEUTROPHILS % (AUTO) 55.8 % (42.2-75.2); PLATELET COUNT (AUTO) 254 K/uL (140-450); RED BLOOD CELL COUNT(AUTO) 3.72 MIL/uL (4.20-5.40); RED CELL DISTRIBUTION WIDTH 14.8 % (11.6-13.7); WHITE BLOOD COUNT (AUTO) 7.8 K/uL (4.8-10.8)
[2018-03-04 07:51] LABS: ANION GAP 8.3 (8-16); CARBON DIOXIDE 29.5 mmol/L (21-32); POTASSIUM 4.8 mmol/L (3.5-5.1)
[2018-03-04 07:55] LABS: CREATININE 7.3 mg/dL (0.6-1.3)
[2018-03-04 08:00] VITALS: BP 156/58
[2018-03-04 08:07] LABS: MAGNESIUM 2.2 mg/dL (1.8-2.4); PHOSPHORUS 5.6 mg/dL (2.5-4.9)
[2018-03-04] MEDS ORDERED: hydrALAZINE 10 MG TAB PO SCH (09:00)
--- NOTE | 2018-03-04 10:00 | NUR ---
ADMINISTERED MED ORDERED TO PT. TOLERATED WELL. STATES WILL HAVE DIALYSIS TOMORROW IN HOSPITAL. PT HAS ELEVATED CREATININE AND BUN, AWARE. SON AT BEDSIDE. NO SIGN OF DISTRESS NOTED. WILL CONTINUE TO MONITOR PT.
[2018-03-04] MEDS: ATORVASTATIN 80 MG TAB PO SCH ×2 (10:09→20:30)
[2018-03-04] MEDS: DOCUSATE SODIUM 100 MG GELCAP PO SCH ×2 (10:09→20:32)
[2018-03-04] MEDS: ASPIRIN 81 MG TAB.CHEW PO SCH (10:09)
[2018-03-04] MEDS: CALCIUM ACETATE 667 MG TAB PO SCH ×3 (10:09→17:24)
[2018-03-04] MEDS: cloNIDine 0.1 MG TAB PO SCH (10:10)
[2018-03-04] MEDS: CARVEDILOL 3.125 MG TAB PO SCH (10:11)
[2018-03-04] MEDS: VIT-B COMP/VIT-C/FOLIC ACID 1 TAB PO SCH (10:11)
[2018-03-04] MEDS: FAMOTIDINE 20 MG TAB PO SCH (10:11)
[2018-03-04] MEDS: LISINOPRIL 20 MG TAB PO SCH (10:11)
[2018-03-04] MEDS: FUROSEMIDE 40 MG TAB PO SCH ×2 (10:12→20:33)
[2018-03-04] MEDS: amLODIPine 5 MG TAB PO SCH (10:12)
[2018-03-04] MEDS ORDERED: cloNIDine-TTS2 0.2 MG/24 HR 1 EA PATCH TD SCH (11:49)
--- NOTE | 2018-03-04 11:49 | NUR ---
CLONIDINE PATCH TO START FROM TOMORROW. MD TO PUT NEW ORDER FOR PATCH TO START FROM TOMORROW AND NEEDS TO BE CHANGED EVERY WEEK.
[2018-03-04 12:00] VITALS: BP 158/51
--- NOTE | 2018-03-04 12:30 | NUR ---
CHECKED O PT. LYING ON HER BED. WATCHING TV, DENIES ANY PAIN, NO COMPLAIN OF VOMITING. PLACED CALL LIGHT WITHIN PT REACH. INFORMED HER TO CALL FOR ANY HELP BY USING CALL LIGHT. VERBALIZED UNDERSTANDING. WILL CONTINUE TO MONITOR PT.
[2018-03-04] MEDS: NACL 0.9% 1,000 ML IV SCH (13:27)
--- NOTE | 2018-03-04 14:16 | NUR ---
PATIENT HAS BEEN SCREENED AND CATEGORIZED MODERATE NUTRITION RISK. PATIENT WILL BE SEEN WITHIN 3-5 DAYS OF ADMISSION. 03/05/18 03/07/[address]
[2018-03-04 16:00] VITALS: BP 142/56
--- NOTE | 2018-03-04 16:58 | NUR ---
TALKED TO DR PARSON REGARDING CATAPRES PATCH, STATES WILL PUT NEW ORDER FOR PT FROM TOMORROW. NOTIFIED HIM OF PT BS 173, STATES TO START COVERAGE FROM 1930 ACU CHECK. STATES TO CONTINUE TO MONITOR BP AND BLOOD SUGAR.
--- NOTE | 2018-03-04 17:00 | NUR ---
DR BRAGG AT BEDSIDE. PT LYING ON HER BED. DENIES ANY PAIN, ANY NAUSEA THIS TIME. PT TO GET HD TOMORROW. VERBALIZED UNDERSTANDING . PT BP 142/56 AT THIS TIME. NO SIGN OF DISTRESS NOTED. WILL CONTINUE TO MONITOR PT.
--- NOTE | 2018-03-04 18:30 | NUR ---
CHECKED ON PT. LYING ON HER BED . WATCHING TV. NO SIGN OF DISTRESS NOTED. WILL CONTINUE TO MONITOR PT.
--- NOTE | 2018-03-04 19:30 | NUR ---
RECEIVED PT AWAKE ON BED, AAOX4, VITAL SIGNS TAKEN, BP SLIGHTLY ELEVATED, DENIES ANY PAIN, NO SOB NOTED, PLAN OF CARE DISCUSS, AWARE OF SCHEDULE HEMODIALYSIS TOMORROW, SAFETY MEASURES IN PLACE, CALL LIGHT WITHIN REACH.
--- NOTE | 2018-03-04 19:30 | NUR ---
ENDORSED PT TO PM NURSE FOR CONTINUITY OF CARE. PT IN STABLE CONDITION. PM NURSE INFORMED OF STARTING THE CLONIDINE PATCH TOMORROW IN MORNING AND TO START THE INSULIN COVERAGE FROM 1930. AWARE.
[2018-03-04 20:00] VITALS: BP 160/57
[2018-03-04] MEDS: RAMIPRIL 5 MG CAP PO SCH (20:32)
[2018-03-04] MEDS: CARVEDILOL 12.5 MG TAB PO SCH (20:34)
[2018-03-04] MEDS: INSULIN LISPRO SLIDING SCALE 100 UNITS/ML VIAL SUBQ PRN (20:39)
[2018-03-04] MEDS: BLOOD GLUCOSE MONITORING 1 DEV DEV FS SCH (20:40)
--- NOTE | 2018-03-04 20:50 | NUR ---
BLOOD SUGAR CHECKED WITH 264 RESULT, COVERAGE GIVEN, SNACK PROVIDED, DUE MEDS ADMINISTERED, ALL NEEDS ATTENDED.
--- NOTE | 2018-03-04 23:40 | NUR ---
VITAL SIGNS TAKEN, BP SLIGHTLY ELEVATED, ASYMPTOMATIC, PT AMBULATORY TO BR WITH STEADY GAIT AND VOIDED FREELY, CONTINUE TO MONITOR CLOSELY.
[2018-03-05] VITALS: BP 162/66
[2018-03-05 04:00] VITALS: BP 141/57
--- NOTE | 2018-03-05 04:00 | NUR ---
PT SLEEPING, EASILY AROUSABLE, VITAL SIGNS STABLE, DENIES PAIN, MONITORED CLOSELY.
[2018-03-05] MEDS: BLOOD GLUCOSE MONITORING 1 DEV DEV FS SCH ×3 (06:53→16:30)
--- NOTE | 2018-03-05 06:55 | NUR ---
CALLED [facility] AND TALKED TO JENNA TO CONFIRM PT'S SCHEDULE FOR HEMODIALYSIS TODAY, JENNA STATED "YES".
--- NOTE | 2018-03-05 07:15 | NUR ---
PT SLEEPING, NO SIGNS OF DISTRESS NOTED, REPORT GIVEN TO KASHMIR NEWELL FOR CONTINUITY OF CARE.
--- NOTE | 2018-03-05 07:15 | NUR ---
RECEIVED PT REPORT FROM ROUND BONER NURSE AT BEDSIDE. PT SLEEPING, EASILY AROUSED TO NAME, OX4. NO S/S OF ACUTE DISTRESS. IV NOTED TO RIGHT AC, 20G, RUNNING NS AT 10ML/HR, PATENT, INTACT AND ASYMPTOMATIC. PLAN OF CARE DISCUSSED WITH PT, PT VERBALIZED UNDERSTANDING. BED IN LOWEST POSITION, CALL LIGHT WITHIN REACH.
[2018-03-05 08:00] VITALS: BP 178/76
[2018-03-05 08:57] LABS: BASOPHILS # (AUTO) 0.1 K/uL (0.00-0.22); BASOPHILS % (AUTO) 1.1 % (0.0-2.0); EOSINOPHILS # (AUTO) 0.8 K/uL (0-0.4); EOSINOPHILS % (AUTO) 9.9 % (0.0-4.0); HEMOGLOBIN 11.2 g/dL (12.0-16.0); LYMPHOCYTES # (AUTO) 1.8 K/uL (2.5-16.5); LYMPHOCYTES % (AUTO) 23.7 % (20.5-51.1); MEAN CORPUSCULAR HEMOGLOBIN 31 pg (27-31); MEAN CORPUSCULAR HGB CONC 33 g/dL (33-37); MEAN CORPUSCULAR VOLUME 92.4 fL (80-94); MONOCYTES # (AUTO) 0.6 K/uL (0.8-1.0); NEUTROPHILS # (AUTO) 4.4 K/uL (1.8-7.7); NEUTROPHILS % (AUTO) 57.3 % (42.2-75.2); PLATELET COUNT (AUTO) 250 K/uL (140-450); RED BLOOD CELL COUNT(AUTO) 3.68 MIL/uL (4.20-5.40); RED CELL DISTRIBUTION WIDTH 14.7 % (11.6-13.7); WHITE BLOOD COUNT (AUTO) 7.7 K/uL (4.8-10.8)
[2018-03-05] MEDS: RAMIPRIL 5 MG CAP PO SCH ×2 (09:00→13:37)
[2018-03-05] MEDS: cloNIDine-TTS2 0.2 MG/24 HR 1 EA PATCH TD SCH ×2 (09:00→13:39)
[2018-03-05] MEDS: CARVEDILOL 12.5 MG TAB PO SCH ×2 (09:00→13:36)
[2018-03-05] MEDS: FUROSEMIDE 40 MG TAB PO SCH (09:00)
[2018-03-05] MEDS ORDERED: cloNIDine-TTS2 0.2 MG/24 HR 1 EA PATCH TD SCH (09:00)
[2018-03-05 09:21] LABS: ANION GAP 10.5 (8-16); CARBON DIOXIDE 26.7 mmol/L (21-32); POTASSIUM 5.2 mmol/L (3.5-5.1)
[2018-03-05] MEDS: ASPIRIN 81 MG TAB.CHEW PO SCH (09:24)
[2018-03-05] MEDS: VIT-B COMP/VIT-C/FOLIC ACID 1 TAB PO SCH (09:25)
[2018-03-05] MEDS: FAMOTIDINE 20 MG TAB PO SCH (09:25)
[2018-03-05] MEDS: DOCUSATE SODIUM 100 MG GELCAP PO SCH (09:25)
[2018-03-05] MEDS: CALCIUM ACETATE 667 MG TAB PO SCH ×3 (09:26→17:50)
[2018-03-05 09:31] LABS: MAGNESIUM 2.5 mg/dL (1.8-2.4)
--- NOTE | 2018-03-05 10:00 | NUR ---
DIALYSIS NURSE IS HERE TO DO HD. PT IS IN STABLE CONDITION, NO COMPLAINS.
[2018-03-05] MEDS: INSULIN LISPRO SLIDING SCALE 100 UNITS/ML VIAL SUBQ PRN ×2 (11:57→17:54)
[2018-03-05 12:00] VITALS: BP 187/63
[2018-03-05] MEDS ORDERED: amLODIPine 5 MG TAB PO SCH (12:00)
[2018-03-05] MEDS: NACL 0.9% 1,000 ML IV SCH (12:56)
--- NOTE | 2018-03-05 13:30 | NUR ---
SBP IS 202, MADE DR PARSON AWARE. OK TO GIVE COREG, CLONIDINE PATCH, AND RAMIPRIL.
[2018-03-05] MEDS: ONDANSETRON 4 MG/2 ML VIAL IM/IVP PRN (14:20)
--- NOTE | 2018-03-05 14:30 | NUR ---
PT C/O NAUSEA, ZOFRAN AND ANTIVERT HAS BEEN GIVEN.
--- NOTE | 2018-03-05 14:55 | NUR ---
DIALYSIS DONE, 2300ML TAKEN OUT PER DIALYSIS NURSE.
[2018-03-05 15:30] VITALS: BP 155/68
--- NOTE | 2018-03-05 15:30 | NUR ---
BP 155/68. PT STATED NAUSEA HAS BEEN MUCH BETTER.
[2018-03-05] MEDS ORDERED: AMLO5TAB4 PO (16:19)
[2018-03-05] MEDS ORDERED: CARV12.52 PO (16:19)
[2018-03-05] MEDS ORDERED: RAMI5CAP21 PO (16:19)
[2018-03-05] MEDS ORDERED: CLON-528 TD (16:36)
--- NOTE | 2018-03-05 17:40 | NUR ---
PT DISCHARGED PER MD ORDER. DISCHARGE INSTRUCTIONS AND MED TEACHING PROVIDED WITH POLY AREA SUPERVISOR PHONE, AUTOCLAVE OPERATOR #[id number]. PT VERBALIZED UNDERSTANDING. RX GIVEN. IV CATH DC'D. TIP INTACT, PRESSURE APPLIED. PT TOLERATED WELL. PT DENIES ANY PAIN OR NAUSEA. MADE PT AWARE OF THE SCHEDULED APPT WITH DR Vásquez.
--- NOTE | 2018-03-05 17:50 | NUR ---
DR PARSON HAS EXPLAINED TO PT ABOUT THE RESULTS OF US CAROTID AND DOPPLER STUDY. ALL PT'S QUESTIONS HAS BEEN ADDRESSED.
--- NOTE | 2018-03-05 18:20 | NUR ---
PT LEFT WITH HER SON. PT LEFT WITH ALL HER BELONGINGS AND IN STABLE CONDITION. WHEELED PT TO LOBBY.
[2018-03-08] MEDS ORDERED: ERGOCALCIFEROL 50,000 IU SGL PO SCH (09:00)
== END 2018-03-05 18:20 | disposition home or self-care (01) | DRG 48 ==
LOC: MED 11:04 → MTU 13:27
PROVIDERS: ADMIT Family Medicine; ATTEND Family Medicine
PROC: 5A1D70Z Performance of Urinary Filtration, Intermittent, Less than 6 Hours Per Day (ICD-10-PCS; principal; 2018-03-03)
PROC: 5A1D70Z Performance of Urinary Filtration, Intermittent, Less than 6 Hours Per Day (ICD-10-PCS; 2018-03-05)
DX: G90.9 Disorder of the autonomic nervous system, unspecified (principal); N17.0 Acute kidney failure with tubular necrosis; I13.2 Hypertensive heart and chronic kidney disease with heart failure and with stage 5 chronic kidney disease, or end stage renal disease; E44.0 Moderate protein-calorie malnutrition; E11.22 Type 2 diabetes mellitus with diabetic chronic kidney disease; I07.1 Rheumatic tricuspid insufficiency; E83.39 Other disorders of phosphorus metabolism; E11.51 Type 2 diabetes mellitus with diabetic peripheral angiopathy without gangrene; I16.0 Hypertensive urgency; E86.0 Dehydration; W01.0XXA Fall on same level from slipping, tripping and stumbling without subsequent striking against object, initial encounter; I50.43 Acute on chronic combined systolic (congestive) and diastolic (congestive) heart failure; D63.1 Anemia in chronic kidney disease; E87.1 Hypo-osmolality and hyponatremia; E83.41 Hypermagnesemia; E66.3 Overweight; E78.5 Hyperlipidemia, unspecified; I95.1 Orthostatic hypotension; I34.0 Nonrheumatic mitral (valve) insufficiency; I25.10 Atherosclerotic heart disease of native coronary artery without angina pectoris; I65.22 Occlusion and stenosis of left carotid artery; E11.65 Type 2 diabetes mellitus with hyperglycemia; N18.6 End stage renal disease; Z99.2 Dependence on renal dialysis; Y93.89 Activity, other specified; Y92.89 Other specified places as the place of occurrence of the external cause; Y99.8 Other external cause status; Z79.82 Long term (current) use of aspirin; Z79.899 Other long term (current) drug therapy; Z83.3 Family history of diabetes mellitus; Z82.49 Family history of ischemic heart disease and other diseases of the circulatory system; Z68.25 Body mass index [BMI] 25.0-25.9, adult; Z79.84 Long term (current) use of oral hypoglycemic drugs
CPT/HCPCS: 36415; 70450; 71045; 72125; 73562; 80048; 80053; 80305; 81001; 81025; 82948; 83036; 83690; 83735; 83880; 84100; 84134; 84436; 84443; 84484; 85025; 85610; 85730; 87081; 93005; 93880; 93925; 93970; 96374; 99291; J0360; J1644; J1815; J2405; J3490; J7030; J8597; Q0092

== ENCOUNTER 2018-03-07 09:46 | Inpatient (IN) | payer MEDICAID ==
[~2018-03-07] VITALS: Ht 160 cm; Wt 85.3 kg
[~2018-03-07 09:46] MED LIST changes: -BLOO1STR56 FS; +CARV12.52 PO; -CARV3.122 PO; +CLON-528 TD; -CLON0.1T42 PO; +DOCU-299 PO; +ERGO500028 PO; -FAMO20TA13 PO; -LAS20I IVP; -LEVEMIR SUBQ; -LISI-420 PO; -NEP PO; +RAMI5CAP21 PO; -SACC250C1 PO
[2018-03-07 09:58] VITALS: BP 158/72
--- NOTE | 2018-03-07 10:26 | NUR ---
PT TAKEN VIA WHEELCHAIR TO BED 10
--- NOTE | 2018-03-07 10:30 | NUR ---
PT. CAME INTO THE ED DUE TO NOSEBLEED SINCE 3AM TODAY. PT. WHEELCHAIR ASSISTED TO BED, UNABLE TO RESPOND TO QUESTIONS AND "CRYING". PT HAS PALE APPEARANCE WITH YELLOW DISCOLORATION TO SCLERA. P: 41 WHEN ATTACHED TO MONITOR. PT. STATES " I FEEL WEAK AND NAUSEOUS". RR EVEN AND UNLABORED. "I HAVE NEW MEDICATIONS IM TAKING AND I TOOK THEM THIS MORNING ". ER MD MADE AWARE OF VITAL SIGNS. 5/10 PAIN IN NOSE DUE TO BLEEDING. SAFETY PRECAUTIONS IMPLEMENTED. WILL CONTINUE TO MONITOR. DENIES SOB, DENIES FEVER/ CHILLS.
--- NOTE | 2018-03-07 10:38 | NUR ---
DR BAIG EVALUATING AT BEDSIDE
--- NOTE | 2018-03-07 11:00 | NUR ---
PT TAKEN TO CT IN [place]
--- NOTE | 2018-03-07 11:00 | NUR ---
REPORTED LAYING DOWN B/P : 150/48 AND SITTING WITH FEET ON THE FLOOR B/P: 118/31. ER MD BAIG NOTIFIED.
[2018-03-07 11:09] LABS: HEMATOCRIT 32.9 % (36-48); HEMOGLOBIN 10.6 g/dL (12.0-16.0); RED BLOOD CELL COUNT(AUTO) 3.59 MIL/uL (4.20-5.40); WHITE BLOOD COUNT (AUTO) 9.9 K/uL (4.8-10.8)
[2018-03-07 11:10] LABS: BASOPHILS # (AUTO) 0.1 K/uL (0.00-0.22); BASOPHILS % (AUTO) 1.1 % (0.0-2.0); EOSINOPHILS # (AUTO) 0.4 K/uL (0-0.4); EOSINOPHILS % (AUTO) 3.8 % (0.0-4.0); LYMPHOCYTES % (AUTO) 20.4 % (20.5-51.1); MEAN CORPUSCULAR HEMOGLOBIN 30 pg (27-31); MEAN CORPUSCULAR HGB CONC 32 g/dL (33-37); MEAN CORPUSCULAR VOLUME 91.6 fL (80-94); MONOCYTES # (AUTO) 0.7 K/uL (0.8-1.0); NEUTROPHILS # (AUTO) 6.7 K/uL (1.8-7.7); NEUTROPHILS % (AUTO) 67.7 % (42.2-75.2); PLATELET COUNT (AUTO) 265 K/uL (140-450); RED CELL DISTRIBUTION WIDTH 14.3 % (11.6-13.7)
[2018-03-07 11:13] LABS: PROTHROMBIN TIME 9.8 secs (10.8-13.4)
[2018-03-07 11:15] LABS: POTASSIUM 4.7 mmol/L (3.5-5.1)
[2018-03-07 11:16] LABS: ANION GAP 11.8 (8-16); CARBON DIOXIDE 29.9 mmol/L (21-32)
--- NOTE | 2018-03-07 11:17 | NUR ---
CRITICAL LAB VALUE RECEIVED AT THIS TIME, BUN 74, CREATNINE 8.5. GARY TERRELL NOTIFIED.
[2018-03-07 11:18] LABS: ALBUMIN 3.1 g/dL (3.4-5.0); CREATININE 8.5 mg/dL (0.6-1.3); TOTAL BILIRUBIN 0.4 mg/dL (0.0-1.0)
[2018-03-07] MEDS ORDERED: ACETAMINOPHEN 325 MG TAB PO PRN (12:00)
[2018-03-07] MEDS ORDERED: MORPHINE SULFATE 2 MG/ML SYR IVP PRN (12:00)
[2018-03-07] MEDS ORDERED: HYDROcodone/APAP 5/325 MG 1 TAB TAB PO PRN (12:00)
[2018-03-07] MEDS ORDERED: ONDANSETRON 4 MG/2 ML VIAL IM/IVP PRN (12:00)
[2018-03-07] MEDS ORDERED: ZOLPIDEM 5 MG TAB PO PRN (12:00)
[2018-03-07] MEDS ORDERED: LORazepam 2 MG/ML VIAL IM/IVP PRN (12:00)
[2018-03-07] MEDS ORDERED: DOCUSATE SODIUM 100 MG GELCAP PO PRN (12:00)
--- NOTE | 2018-03-07 12:03 | NUR ---
PT. RESTING COMFORTABLY IN BED, RR EVEN AND UNLABORED. PT IS SLEEPING. SON AT BEDSIDE. BED IN LOWEST POSITION. VSS. NO BLEEDING FROM NOSE AT THIS TIME. WILL CONTINUE TO MONITOR.
--- NOTE | 2018-03-07 12:46 | NUR ---
PT TAKEN TO FLOOR BY KASHMIR MASON AND EMT RAEANN
[2018-03-07 13:00] VITALS: BP 148/62
--- NOTE | 2018-03-07 13:00 | NUR ---
RECEIVED REPORT FROM ER AM NURSE. TELE PT. RENAL DIET. ON FLUID RESTRICTION 1L/DAY. PT AWAKE, ALERT ORIENTED X 3, WITH SOME FORGETFULNESS. SKIN ASSESSMENT DONE. WITH DIALYSIS PORT ON LEFT UPPER ARM. WITH CLOSED SKIN ELEVATION ON R PALM OF HAND, NON TENDER. WITH 2 IV SITES, ON R HAND SALINE LOCK AND ON R AC, SALINE LOCK, NON TENDER AND NO SIGNS OF REDNESS FOR BOTH IV SITES. ORIENTED TO UNIT. BED AT LOWEST POSITION. BED ALARM PLACED. INSTRUCTED TO CALL FOR NURSE IF WILL GET UP. CALL LIGHT WITHIN REACH. POC CARE DISCUSSED AND PT VERBALIZED UNDERSTANDING.
--- NOTE | 2018-03-07 13:00 | NUR ---
Patient will be admitted to care of dr. quevedo . Admited to tele . Will go to room 124a. Belongings list completed. Report to ac romero .
[2018-03-07 13:23] LABS: MAGNESIUM 2.4 mg/dL (1.8-2.4); PHOSPHORUS 6.6 mg/dL (2.5-4.9)
--- NOTE | 2018-03-07 15:00 | NUR ---
PT W/ LUNCH TRAY DELIVERED BY [facility]. INSTRUCTED SON AT BEDSIDE TO CALL FOR NURSE WHEN ABLE TO URINATE, FOR UA.
[2018-03-07] MEDS ORDERED: DEXTROSE 50% 50 ML SYR IVP PRN (15:10)
[2018-03-07] MEDS ORDERED: INSULIN LISPRO SLIDING SCALE 100 UNITS/ML VIAL SUBQ PRN (15:10)
[2018-03-07] MEDS ORDERED: CARVEDILOL 12.5 MG TAB PO SCH (15:15)
[2018-03-07] MEDS ORDERED: amLODIPine 5 MG TAB PO SCH (15:15)
[2018-03-07] MEDS: NACL 0.9% 250 ML IV SCH (16:04)
--- NOTE | 2018-03-07 16:16 | NUR ---
PT SITTING DOWN ON BED, COMFORTABLY. NO DISTRESS NOTED DENIES ANY PAIN. SCHEDULED BP MEDS DUE GIVEN PER DR. GONGORA PER MD ORDERED.EVEN THOUGH PT TO RECEIVE DIALYSIS LATER TODAY.WILL CONTINUE TO MONITOR.
[2018-03-07 16:23] LABS: APPEARANCE,URINE SL CLOUDY (CLEAR); BILIRUBIN,URINE NEGATIVE (NEGATIVE); BLOOD, URINE TRACE-L (NEGATIVE); COLOR,URINE YELLOW (YELLOW); LEUKOCYTE ESTERASE ,URINE NEGATIVE (NEGATIVE); NITRITE, URINE NEGATIVE (NEGATIVE); PH,URINE 7.5 (5.0-9.0); UGLUCOSE TRACE (NEGATIVE)
[2018-03-07 16:44] LABS: RBC,URINE 0-5 (RARE) /HPF (0-5); WBC,URINE 0-5 (RARE) /HPF (0-5)
[2018-03-07] MEDS ORDERED: CALCIUM ACETATE 667 MG TAB PO SCH (17:00)
[2018-03-07] MEDS: SEVELAMER CARBONATE 800 MG TAB PO SCH (17:08)
[2018-03-07] MEDS: BLOOD GLUCOSE MONITORING 1 DEV DEV FS SCH ×2 (17:09→21:34)
[2018-03-07 17:22] LABS: BARBITURATE, URINE NEGATIVE ng/ml (NEG <=200); BENZODIAZEPINE, URINE NEGATIVE ng/mL (NEG <=200); CANNABINOID, URINE NEGATIVE ng/mL (NEG <=50); COCAINE, URINE NEGATIVE ng/mL (NEG <=300); OPIATE, URINE NEGATIVE ng/mL (NEG <=2000); PHENCYCLIDINE SCREEN,URINE NEGATIVE ng/mL (NEG <=25)
--- NOTE | 2018-03-07 19:30 | NUR ---
ENDORSED TO CALCINER FEEDER NURSE. PT STABLE. NO RESPIRATORY DISTRESS NOTED. NO COMPLAINTS PAIN.
--- NOTE | 2018-03-07 19:32 | NUR ---
RECEIVED PT FROM DU MARLOW PT WELSH SPEAKER AAOX4 NOT SIGNS OF BLEEDING ON TELEMETRY SR, ON DIALYSIS AT THIS TIME IV TKO ON RT HAND INITIAL ASSESSMENT DONE
[2018-03-07 20:00] VITALS: BP 155/62
--- NOTE | 2018-03-07 20:10 | NUR ---
HEMODIALYSIS FINISH AND 1.6 LTS OUT PT REMAIN STABLE NOT DISTRESS NOTED. PT NOW EATING HER DINNER GOOD APPETITIE
[2018-03-07] MEDS ORDERED: MEROPENEM 1,000 MG in NACL 0.9% 100 ML IV SCH (21:00)
[2018-03-07] MEDS ORDERED: ATORVASTATIN 80 MG TAB PO SCH (21:00)
[2018-03-07] MEDS ORDERED: RAMIPRIL 10 MG PO SCH (21:00)
--- NOTE | 2018-03-07 21:35 | NUR ---
PT BLOOD SUGAR TEST 118 REMAIN STABLE NOT DISTRESS NOTED
[2018-03-07] MEDS: RAMIPRIL 5 MG CAP PO SCH (21:37)
[2018-03-07] MEDS: CARVEDILOL 12.5 MG TAB PO SCH (21:38)
[2018-03-08] VITALS: BP 127/70
--- NOTE | 2018-03-08 | NUR ---
PT GETTING SLEEP TKO IV ON RT HAND INFUSING WELL ON TELEMETRY SR NOT DISTRESS NOTED
[2018-03-08 04:00] VITALS: BP 148/56
--- NOTE | 2018-03-08 04:00 | NUR ---
PT REMAIN STABLE SPONGE BATH GIVEN LINEN CHANGED PT IS ASSISTED TOTHE RESTROOM NOT DISTRESS NOTED
--- NOTE | 2018-03-08 06:02 | NUR ---
PT RESTING ON BED TKO ON RT HAND INFUSIG WELL DENIES ANY PAIN OR DISCOMFORT ON TELEMETRY SR
[2018-03-08 06:48] LABS: BASOPHILS # (AUTO) 0.1 K/uL (0.00-0.22); BASOPHILS % (AUTO) 1.4 % (0.0-2.0); EOSINOPHILS # (AUTO) 0.4 K/uL (0-0.4); EOSINOPHILS % (AUTO) 5.4 % (0.0-4.0); HEMATOCRIT 31.1 % (36-48); HEMOGLOBIN 10.1 g/dL (12.0-16.0); LYMPHOCYTES # (AUTO) 2.1 K/uL (2.5-16.5); LYMPHOCYTES % (AUTO) 25.6 % (20.5-51.1); MEAN CORPUSCULAR HEMOGLOBIN 30 pg (27-31); MEAN CORPUSCULAR HGB CONC 33 g/dL (33-37); MEAN CORPUSCULAR VOLUME 91.9 fL (80-94); MONOCYTES # (AUTO) 0.7 K/uL (0.8-1.0); MONOCYTES % (AUTO) 9.1 % (1.7-9.3); NEUTROPHILS # (AUTO) 4.7 K/uL (1.8-7.7); NEUTROPHILS % (AUTO) 58.5 % (42.2-75.2); PLATELET COUNT (AUTO) 249 K/uL (140-450); RED BLOOD CELL COUNT(AUTO) 3.39 MIL/uL (4.20-5.40); RED CELL DISTRIBUTION WIDTH 14.5 % (11.6-13.7)
[2018-03-08 06:57] LABS: ANION GAP 7.9 (8-16); CARBON DIOXIDE 27.1 mmol/L (21-32)
--- NOTE | 2018-03-08 07:00 | NUR ---
BLOOD SUGAR TEST 119 PT ALINE ENDORSED TODAY SHIFT NURSE FOR CONTINUITY OF CARE
[2018-03-08 07:02] LABS: MAGNESIUM 1.9 mg/dL (1.8-2.4); PHOSPHORUS 5.1 mg/dL (2.5-4.9)
--- NOTE | 2018-03-08 07:15 | NUR ---
RECEIVED PT REPORT FROM FOOD SERVICE COORDINATOR NURSE AT BEDSIDE. PT IS AAOX4. IV SITE NOTED TO THE R AC 20G AND R HAND 22G, PATENT AND ASYMPTOMATIC. L UA FISTULA FOR HEMODIALYSIS. HD DONE YESTERDAY. 1.6L TAKEN OUT. SKIN WARM, DRY, AND INTACT WITH NO OPEN WOUNDS. DENIES PAIN. BED LOCKED IN LOWEST POSITION. CALL LIGHT WITHIN REACH. SAFETY MEASURES IN PLACE. WILL CONTINUE TO MONITOR.
[2018-03-08] MEDS: BLOOD GLUCOSE MONITORING 1 DEV DEV FS SCH ×2 (07:30→12:09)
[2018-03-08 07:38] LABS: CREATININE 5.6 mg/dL (0.6-1.3)
[2018-03-08 08:00] VITALS: BP 153/74
--- NOTE | 2018-03-08 08:28 | NUR ---
PATIENT HAS BEEN SCREENED AND CATEGORIZED MODERATE NUTRITION RISK. PATIENT WILL BE SEEN WITHIN 3-5 DAYS OF ADMISSION. 03/10/18 03/12/[address]
[2018-03-08] MEDS: RAMIPRIL 5 MG CAP PO SCH (08:29)
[2018-03-08] MEDS: CARVEDILOL 12.5 MG TAB PO SCH (08:31)
[2018-03-08] MEDS: SEVELAMER CARBONATE 800 MG TAB PO SCH ×2 (08:31→12:44)
[2018-03-08] MEDS ORDERED: ASPIRIN 81 MG TAB.CHEW PO SCH (09:00)
[2018-03-08] MEDS ORDERED: BISACODYL 5 MG PO SCH (09:00)
[2018-03-08] MEDS ORDERED: FOLIC ACID PO SCH (09:00)
[2018-03-08] MEDS ORDERED: VIT BCOMP C PO SCH (09:00)
[2018-03-08] MEDS ORDERED: BISACODYL 5 MG TABEC PO SCH (09:00)
[2018-03-08] MEDS ORDERED: CALCIUM CARBONATE 600 MG PO SCH (09:00)
[2018-03-08] MEDS ORDERED: VIT-B COMP/VIT-C/FOLIC ACID 1 TAB PO SCH (09:00)
[2018-03-08] MEDS: NACL 0.9% 250 ML IV SCH (11:57)
[2018-03-08 12:00] VITALS: BP 135/69
[2018-03-08] MEDS ORDERED: amLODIPine 5 MG TAB PO SCH (12:00)
--- NOTE | 2018-03-08 12:56 | NUR ---
BLUE PHONE OFFERED. PT PREFERS USING HER SON GRAPHITE GRINDER. DISCHARGE INSTRUCTIONS AND MEDICATION TEACHING PROVIDED PT AND PT'S SON. PT AND HER SON VERBALIZED UNDERSTANDING. MADE THEM AWARE PT HAS SCHEDULE APPT WITH DR MARES.
[2018-03-08 13:00] VITALS: BP 173/63
--- NOTE | 2018-03-08 13:00 | NUR ---
PT C/O NAUSEA, ZOFRAN ADMINISTERED.
--- NOTE | 2018-03-08 13:30 | NUR ---
PT DENIES ANY NAUSEA, BP CHECKED 173/73. NOTIFIED DR GONGORA.
[2018-03-08] MEDS ORDERED: hydrALAZINE 20 MG/ML VIAL IVP PRN (14:05)
[2018-03-08 15:03] VITALS: BP 135/42
--- NOTE | 2018-03-08 15:05 | NUR ---
NOTIFIED DR GONGORA ABOUT THE LATEST BP 135/42, HR 73. OK FOR DISCHARGE. PT DISCHARGED PER MD ORDER. PT LEFT WITH ALL HER BELONGINGS AND IN STABLE CONDITION. WHEELED PT TO LOBBY, HER SON IS DRIVING PT HOME.
[2018-03-09] MEDS ORDERED: ERGOCALCIFEROL 50,000 IU SGL PO SCH (09:00)
[2018-03-12] MEDS ORDERED: CLONIDINE TD SCH (09:00)
[2018-03-12] MEDS ORDERED: cloNIDine-TTS2 0.2 MG/24 HR 1 EA PATCH TD SCH (09:00)
== END 2018-03-08 15:20 | disposition home or self-care (01) | DRG 469 ==
LOC: MED 09:46 → MTU 12:05
PROVIDERS: ADMIT General Practice; ATTEND General Practice
PROC: 5A1D70Z Performance of Urinary Filtration, Intermittent, Less than 6 Hours Per Day (ICD-10-PCS; principal; 2018-03-07)
DX: N17.0 Acute kidney failure with tubular necrosis (principal); E11.22 Type 2 diabetes mellitus with diabetic chronic kidney disease; E11.51 Type 2 diabetes mellitus with diabetic peripheral angiopathy without gangrene; D64.9 Anemia, unspecified; N18.6 End stage renal disease; E66.9 Obesity, unspecified; E83.39 Other disorders of phosphorus metabolism; E83.52 Hypercalcemia; I95.1 Orthostatic hypotension; I65.22 Occlusion and stenosis of left carotid artery; I12.0 Hypertensive chronic kidney disease with stage 5 chronic kidney disease or end stage renal disease; E11.65 Type 2 diabetes mellitus with hyperglycemia; F41.9 Anxiety disorder, unspecified; D63.1 Anemia in chronic kidney disease; R04.0 Epistaxis; Z99.2 Dependence on renal dialysis; Z68.33 Body mass index [BMI] 33.0-33.9, adult; Z79.82 Long term (current) use of aspirin; Z79.899 Other long term (current) drug therapy; Z83.3 Family history of diabetes mellitus; Z82.49 Family history of ischemic heart disease and other diseases of the circulatory system; Z79.84 Long term (current) use of oral hypoglycemic drugs
CPT/HCPCS: 36415; 70450; 71045; 80048; 80053; 80305; 81001; 82140; 82150; 82948; 83690; 83735; 83880; 84100; 84134; 84484; 85025; 85610; 85730; 87081; 93005; 99285; J0360; J1815; J2405; J7030; Q0092

== ENCOUNTER 2019-03-10 16:40 | Inpatient (IN) | payer MEDICAID ==
--- NOTE | 2019-03-04 19:18 | NUR ---
RECEIVED PATIENT FROM AM SHIFT NURSE. PATIENT IS A&O X4, AMBULATORY, STEADY GAIT WITH LEFT UPPER ARM AV SHUNT, DIALYSIS ACCESS. PATIENT HAS AN IV TO RIGHT AC 20G SALINE LOCK. PT IS ON ROOM AIR, BUT HAS BIPAP PRN, O2 PRN AND IS WILL MONITOR AND CONTINUE WITH PLAN OF CARE. Addendum: 03/14/19 at 9570 by Yesenia Haas RN WRONG DATE
[~2019-03-10] VITALS: Ht 142.2 cm; Wt 68.0 kg
[~2019-03-10 16:40] MED LIST changes: -AMLO5TAB4 PO; +AMLO5TAB6 PO; +ASPI-1718 PO; -ASPI81CT89 PO; -RAMI5CAP21 PO; +RAMI5CAP73 PO
[2019-03-10 17:34] VITALS: BP 215/129
--- NOTE | 2019-03-10 18:02 | NUR ---
87% RA. PT STARTED ON 4 L NC. NOW AT 99%
--- NOTE | 2019-03-10 18:05 | NUR ---
C/O HIGH BLOOD PRESSURE & NOT FEELING WELL WITH NAUSEA. 215/129 BP UPON TRIAGE. NO EDEMA, JVD, NOTED. PT PLACED ON MONITOR. IV INSERTED AND LABS DRAWN BEDSIDE. EMT AT BEDSIDE FOR EKG. PT AA0X4. BED IS DOWN, LOCKED, BED RAIL X 1, ERMD TO SEE PT. HX: ESRD DIALYSIS M,W,S (SHUNT TO L UPPER ARM), HTN, DM, HIGH CHOLESTROL RX: SEE MED REC
[2019-03-10 18:26] LABS: BASOPHILS % (AUTO) 0.3 % (0.0-2.0); EOSINOPHILS # (AUTO) 0.4 K/uL (0-0.4); EOSINOPHILS % (AUTO) 4.5 % (0.0-4.0); HEMATOCRIT 33.7 % (36-48); HEMOGLOBIN 10.6 g/dL (12.0-16.0); LYMPHOCYTES # (AUTO) 1.2 K/uL (2.5-16.5); LYMPHOCYTES % (AUTO) 14.7 % (20.5-51.1); MEAN CORPUSCULAR HEMOGLOBIN 30 pg (27-31); MEAN CORPUSCULAR HGB CONC 31 g/dL (33-37); MEAN CORPUSCULAR VOLUME 94.3 fL (80-94); MONOCYTES # (AUTO) 0.4 K/uL (0.8-1.0); MONOCYTES % (AUTO) 4.8 % (1.7-9.3); NEUTROPHILS # (AUTO) 6.4 K/uL (1.8-7.7); NEUTROPHILS % (AUTO) 75.7 % (42.2-75.2); PLATELET COUNT (AUTO) 257 K/uL (140-450); RED BLOOD CELL COUNT(AUTO) 3.57 MIL/uL (4.20-5.40); WHITE BLOOD COUNT (AUTO) 8.5 K/uL (4.8-10.8)
[2019-03-10] MEDS ORDERED: PIPERACILLIN/TAZOBACTAM 3.375 GM in DEXTROSE 5% 50 ML IV ONE (18:30)
--- NOTE | 2019-03-10 18:49 | NUR ---
WANTS TO GET PT SOMETHING TO EAT, DR FLOR MADE AWARE AND OK WITH THAT.
[2019-03-10 18:51] LABS: PROTHROMBIN TIME 9.9 secs (10.8-13.4)
[2019-03-10] MEDS ORDERED: PIPERACILLIN/TAZOBACTAM 3.375 GM VIAL IV ONE (19:12)
--- NOTE | 2019-03-10 19:14 | NUR ---
REPORT GIVEN TO EDGARDO MARLOW
[2019-03-10] MEDS ORDERED: NACL 0.9% 1,000 ML IV SCH (19:18)
[2019-03-10] MEDS ORDERED: ONDANSETRON 4 MG/2 ML VIAL IM/IVP PRN (19:20)
[2019-03-10] MEDS ORDERED: MORPHINE SULFATE 2 MG/ML SYR IVP PRN (19:20)
[2019-03-10] MEDS ORDERED: DOCUSATE SODIUM 100 MG GELCAP PO PRN (19:20)
[2019-03-10] MEDS ORDERED: ACETAMINOPHEN 325 MG TAB PO PRN (19:20)
[2019-03-10] MEDS ORDERED: HYDROcodone/APAP 7.5/325 MG 1 TAB PO PRN (19:20)
[2019-03-10] MEDS ORDERED: NITROGLYCERIN 2% 1 GM PKT TP ONE (19:30)
[2019-03-10] MEDS ORDERED: hydrALAZINE 20 MG/ML VIAL IVP ONE (19:30)
--- NOTE | 2019-03-10 19:59 | NUR ---
PT PLACED ON 6L SIMPLE MASK. PT FEELING ANXIOUS.
[2019-03-10 20:06] LABS: ALBUMIN 3.5 g/dL (3.4-5.0); CARBON DIOXIDE 26.3 mmol/L (21-32); TOTAL BILIRUBIN 0.5 mg/dL (0.0-1.0)
[2019-03-10 20:10] LABS: POTASSIUM 6.3 mmol/L (3.5-5.1)
[2019-03-10 20:11] LABS: CREATININE 7.8 mg/dL (0.6-1.3)
[2019-03-10 20:12] LABS: CHOL/HDL RATIO 2.6 (1-4.5); FREE T4 (FREE THYROXINE) 1.08 ng/dL (0.76-1.46); MAGNESIUM 2.4 mg/dL (1.8-2.4); PHOSPHORUS 6.4 mg/dL (2.5-4.9); THYROID STIMULATING HORMONE 2.4 uIU/mL (0.34-3.74)
--- NOTE | 2019-03-10 20:20 | NUR ---
ADMITTED PT FROM ER. 53F CAME BY [facility] DUE TO SOB AND HTN. AWAKE.ALERT AND ORIENTED X4. KOSOVAN SPEAKING. ON O2 6L BY MASK. O2 SAT 98%. DENIES ANY PAIN . DR. DICKENS,RESIDENT DM IN ROOM AND CHECKING ON PT. VITAL SIGNS TAKEN BP ELEVATE 241/[address] DICKENS MADE AWARE. PLAN OF CARE DISCUSSED AND VERBALIZED UNDERSTANDING. BED ON LOW POSITION. SIDE RAILS UP X2. CALL LIGTH PLACED WITHIN REACH. WILL FOLLOW UP ADMIT ORDERS. WILL CONTINUE TO MONITOR.
[2019-03-10 20:25] VITALS: BP 241/111
--- NOTE | 2019-03-10 20:25 | NUR ---
Transfer of care and report given to KASHMIR Scott
--- NOTE | 2019-03-10 20:25 | NUR ---
Patient will be admitted to care of Dr. Lancaster. Admited to Tele. Will go to room 126b. Belongings list completed. Report to KASHMIR Scott.
[2019-03-10] MEDS ORDERED: AMLO5TAB6 PO (20:58)
[2019-03-10] MEDS ORDERED: CLON0.3T41 PO (20:58)
[2019-03-10] MEDS ORDERED: cloNIDine 0.1 MG TAB PO SCH (21:00)
[2019-03-10] MEDS ORDERED: INSU100S22 SUBQ (21:01)
[2019-03-10] MEDS ORDERED: ALBUTEROL SULFATE/IPRATROPIU 3 ML SOL IH PRN (21:05)
[2019-03-10] MEDS ORDERED: SODIUM POLYSTYRENE 15 GM/60 ML UDBTL PO SCH (21:20)
--- NOTE | 2019-03-10 21:40 | NUR ---
BLOOD PRESSURE @2040 241/111 ,HR -82. APRESOLINE 20 MG IVP WAS GIVEN ORDERED.LATEST BP ART THIS TIME 178/68. OTHER DUE MEDS GIVEN EXCEPT COREG AND NTP PER DR. DICKENS,RESIDENT MD. SHE SAID TO HOLD THEM FOR NOW. NO C/O ANY DISCOMFORT /PAIN NOTED. WILL CONTINUE TO MONITOR.
[2019-03-10] MEDS: DOCUSATE SODIUM 100 MG GELCAP PO SCH (21:41)
[2019-03-10] MEDS: ATORVASTATIN 80 MG TAB PO SCH (21:42)
[2019-03-10] MEDS: FUROSEMIDE 40 MG TAB PO SCH (21:42)
--- NOTE | 2019-03-10 21:45 | NUR ---
K LEVEL 6.3 .DR Dulce DICKENS MADE AWARE WITH ORDER. KAYEXALATE 45 MG PO GIVEN. PT INSTRUCTED TO CALL IF NEED TO HAVE BM. CALL LIGHT WITHIN REACH.
[2019-03-10] MEDS: CARVEDILOL 12.5 MG TAB PO SCH (22:39)
[2019-03-10] MEDS ORDERED: FUROSEMIDE 40 MG/4 ML VIAL IVP SCH (23:55)
[2019-03-11] VITALS (8 sets, daily range): BP systolic 19–192; BP diastolic 39–82
[2019-03-11] MEDS ORDERED: NITROGLYCERIN 0.4 MG TAB SL ONE
--- NOTE | 2019-03-11 | NUR ---
PT STARTED HAVING LARGE BM, WITH SOME SOLIDS AND LOOSE BM. CLEANED AND KEPT DRY.
[2019-03-11] MEDS ORDERED: FUROSEMIDE 40 MG/4 ML VIAL IVP SCH (00:30)
--- NOTE | 2019-03-11 00:39 | NUR ---
PT KEPT NPO FROM NOW DUE TO ABDOMINAL US EARLY THIS AM @0630 -0700 AM PER US TECH.
--- NOTE | 2019-03-11 01:00 | NUR ---
ANOTHER LOOSE BM .CLEANED AND KEPT DRY. NO SOB NOTED. O2 SAT 97% ON BIPAP.
--- NOTE | 2019-03-11 02:00 | NUR ---
MADE ROUNDS . PT ASLEEP, ON BIPAP . NO SOB NOTED . OS2 SAT 100%. WILL CONTINUE TO MONITOR.
[2019-03-11] MEDS ORDERED: PIPERACILLIN/TAZOBACTAM 2.25 GM VIAL IV ONE (04:14)
[2019-03-11] MEDS: PIPERACILLIN/TAZOBACTAM 2.25 GM in DEXTROSE 5% 50 ML IV SCH ×3 (04:50→20:16)
--- NOTE | 2019-03-11 04:58 | NUR ---
LAB CALLED FOR TROPONIN ELEVATED 0.[address] DICKENS . MADE AWARE OF THE RESULT. WILL DO ORDER FOR HEPARIN SUBQ.
[2019-03-11] MEDS ORDERED: cloNIDine 0.1 MG TAB PO SCH (05:00)
[2019-03-11] MEDS: BLOOD GLUCOSE MONITORING 1 DEV DEV FS SCH ×4 (05:49→21:06)
--- NOTE | 2019-03-11 05:50 | NUR ---
BLOOD SUGAR THIS AM 81. WILL CONTINUE TO MONITOR.
[2019-03-11] MEDS: ALBUTEROL SULFATE/IPRATROPIU 3 ML SOL IH SCH ×3 (06:28→21:10)
--- NOTE | 2019-03-11 06:28 | NUR ---
LATEST BP 169/69, HR-62. RT INSIDE ROOM FOR BREATHING TREATMENT.
--- NOTE | 2019-03-11 06:30 | NUR ---
URINE SPECIMEN NOT COLLECTED . PT VOIDED X2 BUT WITH LOOSE BM.
[2019-03-11 06:45] LABS: BASOPHILS # (AUTO) 0.1 K/uL (0.00-0.22); EOSINOPHILS # (AUTO) 0.1 K/uL (0-0.4); EOSINOPHILS % (AUTO) 1.2 % (0.0-4.0); HEMATOCRIT 33.4 % (36-48); HEMOGLOBIN 10.7 g/dL (12.0-16.0); LYMPHOCYTES # (AUTO) 1.5 K/uL (2.5-16.5); LYMPHOCYTES % (AUTO) 18.8 % (20.5-51.1); MEAN CORPUSCULAR HEMOGLOBIN 30 pg (27-31); MEAN CORPUSCULAR HGB CONC 32 g/dL (33-37); MEAN CORPUSCULAR VOLUME 94.5 fL (80-94); MONOCYTES # (AUTO) 0.5 K/uL (0.8-1.0); MONOCYTES % (AUTO) 5.7 % (1.7-9.3); NEUTROPHILS # (AUTO) 5.8 K/uL (1.8-7.7); NEUTROPHILS % (AUTO) 73.3 % (42.2-75.2); PLATELET COUNT (AUTO) 245 K/uL (140-450); RED BLOOD CELL COUNT(AUTO) 3.53 MIL/uL (4.20-5.40); RED CELL DISTRIBUTION WIDTH 14.9 % (11.6-13.7); WHITE BLOOD COUNT (AUTO) 7.9 K/uL (4.8-10.8)
[2019-03-11 06:50] LABS: ANION GAP 15.8 (8-16); CARBON DIOXIDE 26.7 mmol/L (21-32); POTASSIUM 5.5 mmol/L (3.5-5.1)
[2019-03-11 07:01] LABS: CREATININE 8.5 mg/dL (0.6-1.3)
--- NOTE | 2019-03-11 07:20 | NUR ---
RECEIVED REPORT FROM NIGHT RN. PT RESTING IN BED. AAOX4. NO S/S OF ACUTE DISTRESS. PT DENIES PAIN. IV SITE PATENT AND INTACT. CALL LIGHT WITHIN REACH. SAFETY MEASURES ENSURED. WILL CONTINUE TO MONITOR.
--- NOTE | 2019-03-11 07:22 | NUR ---
WILL ENDORSE PT IN STABLE CONDITION TO AM NURSE FOR CONTINUITY OF CARE.
--- NOTE | 2019-03-11 08:13 | NUR ---
PATIENT HAS BEEN SCREENED AND CATEGORIZED MODERATE NUTRITION RISK. PATIENT WILL BE SEEN WITHIN 3-5 DAYS OF ADMISSION. 03/13/19 03/15/[address]
[2019-03-11] MEDS: amLODIPine 5 MG TAB PO SCH (08:50)
[2019-03-11] MEDS: CARVEDILOL 12.5 MG TAB PO SCH ×2 (08:50→20:21)
[2019-03-11] MEDS: INSULIN LANTUS 100 UNITS/ML 10 ML VIAL SUBQ SCH (08:50)
[2019-03-11] MEDS: RAMIPRIL 5 MG CAP PO SCH ×2 (09:00→21:00)
[2019-03-11] MEDS ORDERED: SODIUM ZIRCONIUM CYCLOSILICATE 10 GM POWD.PACK PO ONE (09:25)
[2019-03-11] MEDS: CALCIUM ACETATE 667 MG TAB PO SCH ×3 (09:49→16:44)
[2019-03-11] MEDS: DOCUSATE SODIUM 100 MG GELCAP PO SCH ×2 (09:49→20:20)
[2019-03-11] MEDS: FUROSEMIDE 40 MG TAB PO SCH ×2 (09:49→20:21)
[2019-03-11] MEDS: ASPIRIN 81 MG TAB.CHEW PO SCH (09:50)
--- NOTE | 2019-03-11 11:44 | NUR ---
NOTIFIED [facility] ORDER
[2019-03-11] MEDS: cloNIDine 0.1 MG TAB PO SCH ×2 (12:21→23:15)
--- NOTE | 2019-03-11 12:22 | NUR ---
PT REFUSED MCDANIEL. DR LECHUGA AWARE.
--- NOTE | 2019-03-11 12:22 | NUR ---
PT TO RECEIVE DIALYSIS. BP MEDS HELD
[2019-03-11] MEDS: INSULIN LISPRO SLIDING SCALE 100 UNITS/ML VIAL SUBQ PRN ×3 (12:37→21:07)
--- NOTE | 2019-03-11 15:52 | NUR ---
PT RESTING IN BED. NO S/S OF ACUTE DISTRESS. PT DENIES PAIN. IV SITE PATENT AND INTACT. CALL LIGHT WITHIN REACH. SAFETY MEASURES ENSURED. WILL CONTINUE TO MONITOR.
--- NOTE | 2019-03-11 19:20 | NUR ---
RECEIVED PT IN STABLE CONDITION FROM AM NURSE. AWAKE,ALERT AND ORIENTED X4. ON TELE MONITOR. WITH NO SOB NOTED .ON O23L/NC. SAT 98%. FAMILY AT BEDSIDE. IV ACCESS ON THE RT AC G#20 . CLEAR AND PATENT. LT UPPER ARM HD CATHETER WITH DRESSING DRY AND CLEAN. HAS GOOD BRUIT AND THRILL. PLAN OF CARE DISCUSSED AND VERBALIZED UNDERSTANDING. BED ON LOW POSITION. SIDE RAILS UP X2. FREQ ROUNDS NEEDED. CALL LIGHT PLACED WITHIN EASY REACH. WILL CONTINUE TO MONITOR.
[2019-03-11] MEDS: ATORVASTATIN 80 MG TAB PO SCH (20:20)
--- NOTE | 2019-03-11 21:07 | NUR ---
BLOOD SUGAR WAS CHECKED RESULT 212. INSULIN COVERAGE HUMALOG 4 UNITS SUBQ GIVEN ON THE RT ARM, PROVIDED WITH SOME SNACK. WILL CONTINUE TO MONITOR.
--- NOTE | 2019-03-11 22:00 | NUR ---
GOT UP TO THE BATHROOM WITH STANDBY ASSIST . VOIDED. NO C/O ANY DISCOMFORT NOTED.
--- NOTE | 2019-03-11 23:20 | NUR ---
DR. DICKENS MADE AWARE THAT CLONIDINE NOT GIVEN AT 2100. BP AT THIS TIME 143/60, HR-77. SHE SAID IT IS OK NOT TO GIVE AT THIS TIME. JUST TO MONITOR BP AT THE NEXT DUE TIME @ 0500.
--- NOTE | 2019-03-12 00:30 | NUR ---
PT ASLEEP. NO SOB, AND NO DISCOMFORT NOTED. WILL CONTINUE TO MONITOR.
--- NOTE | 2019-03-12 02:00 | NUR ---
MADE ROUNDS. PT ASLEEP. NO S/S OF ANY DISCOMFORT NOTED. WILL CONTINUE TO MONITOR.
[2019-03-12 04:00] VITALS: BP 141/54
--- NOTE | 2019-03-12 04:00 | NUR ---
PT AWAKE. VITAL SIGNS TAKEN. STABLE. NO C/O ANY PAIN NOTED.
[2019-03-12] MEDS: PIPERACILLIN/TAZOBACTAM 2.25 GM in DEXTROSE 5% 50 ML IV SCH ×3 (04:56→20:57)
[2019-03-12] MEDS: cloNIDine 0.1 MG TAB PO SCH ×2 (04:58→13:11)
[2019-03-12] MEDS: BLOOD GLUCOSE MONITORING 1 DEV DEV FS SCH ×4 (06:00→20:58)
--- NOTE | 2019-03-12 06:00 | NUR ---
BLOOD SUGAR WAS CHECKED RESULT 118. NO INSULIN COVERAGE NEEDED.
[2019-03-12 06:08] LABS: T4 (THYROXINE) 9.4 ug/dL (4.5-12.0)
[2019-03-12 07:02] LABS: BASOPHILS # (AUTO) 0.1 K/uL (0.00-0.22); EOSINOPHILS # (AUTO) 0.5 K/uL (0-0.4); EOSINOPHILS % (AUTO) 6.3 % (0.0-4.0); HEMATOCRIT 31.4 % (36-48); LYMPHOCYTES # (AUTO) 2.1 K/uL (2.5-16.5); MEAN CORPUSCULAR HEMOGLOBIN 30 pg (27-31); MEAN CORPUSCULAR HGB CONC 32 g/dL (33-37); MEAN CORPUSCULAR VOLUME 94.1 fL (80-94); MONOCYTES # (AUTO) 0.7 K/uL (0.8-1.0); MONOCYTES % (AUTO) 9.7 % (1.7-9.3); NEUTROPHILS # (AUTO) 4.1 K/uL (1.8-7.7); PLATELET COUNT (AUTO) 204 K/uL (140-450); RED BLOOD CELL COUNT(AUTO) 3.34 MIL/uL (4.20-5.40); RED CELL DISTRIBUTION WIDTH 14.7 % (11.6-13.7); WHITE BLOOD COUNT (AUTO) 7.4 K/uL (4.8-10.8)
[2019-03-12] MEDS: ALBUTEROL SULFATE/IPRATROPIU 3 ML SOL IH SCH ×3 (07:13→19:00)
--- NOTE | 2019-03-12 07:20 | NUR ---
ENDORSED PT IN STABLE CONDITION TO AM NURSE FOR CONTINUITY OF CARE.
--- NOTE | 2019-03-12 07:25 | NUR ---
RECEIVED BEDSIDE REPORT FROM CLIP ON SUNGLASSES ASSEMBLER NURSE. PT IS ASLEEP, NO S/S OF ACUTE DISTRESS OR SOB NOTED. PT IS CURRENTLY ON ROOM AIR, BUT HAS NASAL CANNULA AVAILABLE PRN. IV SITE ON THE R AC 20 G, INFUSING NS 10 ML/HR TKO. LUE AV DIALYSIS SHUNT IS PRESENT. PT IS ON FALL PRECAUTIONS FOR DIZZINESS. CALL LIGHT IS WITHIN REACH.
[2019-03-12 07:46] LABS: ANION GAP 16.2 (8-16); CARBON DIOXIDE 28.9 mmol/L (21-32); POTASSIUM 4.1 mmol/L (3.5-5.1)
[2019-03-12 07:51] LABS: CREATININE 5.8 mg/dL (0.6-1.3)
[2019-03-12 08:00] VITALS: BP 128/60
[2019-03-12 08:53] LABS: MAGNESIUM 1.8 mg/dL (1.8-2.4); PHOSPHORUS 6.6 mg/dL (2.5-4.9)
[2019-03-12] MEDS: RAMIPRIL 5 MG CAP PO SCH ×2 (09:00→20:57)
[2019-03-12] MEDS: amLODIPine 5 MG TAB PO SCH (09:00)
[2019-03-12] MEDS: CARVEDILOL 12.5 MG TAB PO SCH ×2 (09:43→20:57)
[2019-03-12] MEDS: ASPIRIN 81 MG TAB.CHEW PO SCH (09:44)
[2019-03-12] MEDS: DOCUSATE SODIUM 100 MG GELCAP PO SCH ×2 (09:44→20:57)
[2019-03-12] MEDS: FUROSEMIDE 40 MG TAB PO SCH ×2 (09:44→20:57)
[2019-03-12] MEDS: CALCIUM ACETATE 667 MG TAB PO SCH ×3 (09:44→18:05)
--- NOTE | 2019-03-12 09:45 | NUR ---
AM MEDS ADMINISTERED, PT TOLERATED WELL. HELD THE AMLODIPINE SINCE PT ALREADY ON CARVEDILOL AND LASIX, AND HER BP THIS MORNING WAS 128/60. SON IS AT BEDSIDE.
[2019-03-12] MEDS: INSULIN LANTUS 100 UNITS/ML 10 ML VIAL SUBQ SCH (09:53)
[2019-03-12] MEDS: INSULIN LISPRO SLIDING SCALE 100 UNITS/ML VIAL SUBQ PRN ×2 (11:55→20:53)
[2019-03-12 12:00] VITALS: BP 160/74
--- NOTE | 2019-03-12 13:18 | NUR ---
ADMINISTERED THE ORDERED CLONIDINE 0.3 MG, PT'S BP IS 160/85 AT THIS TIME.
[2019-03-12] MEDS ORDERED: RAMIPRIL 5 MG CAP PO SCH (14:30)
--- NOTE | 2019-03-12 14:59 | NUR ---
CALLED AND NOTIFIED [facility] OF PT'S DIALYSIS ORDER FOR TOMORROW.
[2019-03-12 16:00] VITALS: BP 164/55
--- NOTE | 2019-03-12 18:12 | NUR ---
PT EATING DINNER, NO S/S OF ACUTE DISTRESS, NO C/O PAIN. SON IS AT BEDSIDE.
--- NOTE | 2019-03-12 19:30 | NUR ---
PT ENDORSED TO WILD LIFE PHOTOGRAPHER NURSE IN STABLE CONDITION.
--- NOTE | 2019-03-12 19:31 | NUR ---
RECEIVED BEDSIDE REPORT FROM DAY RN. PT IS ASLEEP, NO S/S OF ACUTE DISTRESS OR SOB NOTED. PT IS CURRENTLY ON ROOM AIR, BUT HAS NASAL CANNULA AVAILABLE PRN. IV SITE ON THE R AC 20 G, INFUSING NS 10 ML/HR TKO. [facility]UNT IS PRESENT. LAST HD 03/11 2L OUTPUT AND ORDER FOR HD TOMORROW 03/13. PT IS ON FALL PRECAUTIONS FOR DIZZINESS. CALL LIGHT IS WITHIN REACH. WILL CONTINUE TO MONITOR.
[2019-03-12 20:00] VITALS: BP 167/60
[2019-03-12] MEDS: ATORVASTATIN 80 MG TAB PO SCH (20:56)
--- NOTE | 2019-03-12 20:57 | NUR ---
VITAL SIGNS ARE WITHIN NORMAL LIMITS. B/P SLIGHTLY ELEVATED: 167/60HR 80 ADMINISTERED JOSE MEDICATIONS INCLUDING COREG,LASIX AND ALTACE FOR B/P. UA COLLECTED AND SENT TO LAB. ALL NEEDS MET AT THIS TIME. CALL LIGHT IS WITHIN REACH. WILL CONTINUE TO MONITOR.
[2019-03-12 21:56] LABS: APPEARANCE,URINE CLEAR (CLEAR); BILIRUBIN,URINE NEGATIVE (NEGATIVE); BLOOD, URINE TRACE-I (NEGATIVE); COLOR,URINE YELLOW (YELLOW); LEUKOCYTE ESTERASE ,URINE NEGATIVE (NEGATIVE); NITRITE, URINE NEGATIVE (NEGATIVE); UGLUCOSE 1+ (NEGATIVE)
--- NOTE | 2019-03-12 22:07 | NUR ---
PATIENT IS SLEEPING COMFORTABLY IN BED WITH EYES CLOSED. CHEST RISE AND FALL. NO S/S OF RESPIRATORY DISTRESS. CALL LIGHT IS WITHIN REACH. WILL CONTINUE TO MONITOR.
[2019-03-12 23:12] LABS: BARBITURATE, URINE NEGATIVE ng/ml (NEG <=200); BENZODIAZEPINE, URINE NEGATIVE ng/mL (NEG <=200); CANNABINOID, URINE NEGATIVE ng/mL (NEG <=50); COCAINE, URINE NEGATIVE ng/mL (NEG <=300); OPIATE, URINE NEGATIVE ng/mL (NEG <=2000); PHENCYCLIDINE SCREEN,URINE NEGATIVE ng/mL (NEG <=25)
[2019-03-13] VITALS: BP 165/59
--- NOTE | 2019-03-13 | NUR ---
VITAL SIGNS ARE WITHIN NORMAL LIMITS PT DENIES PAIN. ALL NEEDS MET AT THIS TIME. CALL LIGHT IS WITHIN REACH. WILL CONTINUE TO MONITOR.
[2019-03-13 00:31] LABS: RBC,URINE 0-5 /HPF (0-5); WBC,URINE 0-5 /HPF (0-5)
--- NOTE | 2019-03-13 02:03 | NUR ---
PATIENT IS SLEEPING COMFORTABLY IN BED.EYES CLOSED. CHEST RISE AND FALL. CALL LIGHT IS WITHIN REACH. WILL CONTINUE TO MONITOR.
[2019-03-13 04:00] VITALS: BP 156/66
--- NOTE | 2019-03-13 04:00 | NUR ---
VITAL SIGNS ARE WITHIN NORMAL LIMITS. ALL SAFETY MEASURES ARE IN PLACE. WILL CONTINUE TO MONITOR.
[2019-03-13] MEDS: PIPERACILLIN/TAZOBACTAM 2.25 GM in DEXTROSE 5% 50 ML IV SCH ×3 (05:13→22:45)
[2019-03-13] MEDS: BLOOD GLUCOSE MONITORING 1 DEV DEV FS SCH ×4 (05:42→22:41)
[2019-03-13 06:36] LABS: BASOPHILS # (AUTO) 0.1 K/uL (0.00-0.22); BASOPHILS % (AUTO) 1.1 % (0.0-2.0); EOSINOPHILS # (AUTO) 0.5 K/uL (0-0.4); EOSINOPHILS % (AUTO) 6.9 % (0.0-4.0); HEMATOCRIT 30.4 % (36-48); HEMOGLOBIN 9.9 g/dL (12.0-16.0); LYMPHOCYTES # (AUTO) 1.8 K/uL (2.5-16.5); LYMPHOCYTES % (AUTO) 23.8 % (20.5-51.1); MEAN CORPUSCULAR HEMOGLOBIN 30 pg (27-31); MEAN CORPUSCULAR HGB CONC 32 g/dL (33-37); MEAN CORPUSCULAR VOLUME 93.5 fL (80-94); MONOCYTES # (AUTO) 0.7 K/uL (0.8-1.0); MONOCYTES % (AUTO) 8.6 % (1.7-9.3); NEUTROPHILS # (AUTO) 4.6 K/uL (1.8-7.7); NEUTROPHILS % (AUTO) 59.6 % (42.2-75.2); PLATELET COUNT (AUTO) 217 K/uL (140-450); RED BLOOD CELL COUNT(AUTO) 3.25 MIL/uL (4.20-5.40); RED CELL DISTRIBUTION WIDTH 14.5 % (11.6-13.7); WHITE BLOOD COUNT (AUTO) 7.7 K/uL (4.8-10.8)
--- NOTE | 2019-03-13 07:11 | NUR ---
GAVE BEDSIDE REPORT TO DAY RN. PT ENDORSED IN STABLE CONDITION
--- NOTE | 2019-03-13 07:15 | NUR ---
RECEIVED PATIENT FROM FUEL RETROFITTING TECHNICIAN NURSE. PATIENT IS A&O X4, FULL CODE, NKA. PATIENT HAS AN IV TO RIGHT AC 20G AT TKO FOR ZOSYN. PT IS ON ROOM AIR AND IS TO HAVE DIALYSIS TODAY. WILL MONITOR AND CONTINUE WITH PLAN OF CARE.
[2019-03-13 07:35] LABS: ANION GAP 15.6 (8-16); POTASSIUM 4.6 mmol/L (3.5-5.1)
[2019-03-13] MEDS: ALBUTEROL SULFATE/IPRATROPIU 3 ML SOL IH SCH ×3 (07:38→20:26)
--- NOTE | 2019-03-13 07:39 | NUR ---
MIRA RESPIRLookAcrossS V60 (#[id number]) AT BEDSIDE FOR PULMONARY DISTRESS
[2019-03-13 08:00] VITALS: BP 167/75
[2019-03-13 08:17] LABS: CREATININE 7.8 mg/dL (0.6-1.3)
[2019-03-13] MEDS: hydrALAZINE 25 MG TAB PO SCH ×3 (09:00→16:19)
[2019-03-13] MEDS: RAMIPRIL 5 MG CAP PO SCH ×2 (09:00→22:41)
[2019-03-13] MEDS: amLODIPine 5 MG TAB PO SCH (09:00)
[2019-03-13] MEDS: CARVEDILOL 12.5 MG TAB PO SCH ×2 (09:00→22:41)
--- NOTE | 2019-03-13 09:15 | NUR ---
ADMINISTERED MORNING MEDICATION. WITHHELD ALL BP MEDICATION D/T DIALYSIS TREATMENT PENDING FOR TODAY. BP WAS 167/75 THIS MORNING. ADMINISTERED 5U OF LANTUS FOR BLOOD SUGAR 161. WILL CONTINUE TO MONITOR. NO FURTHER COMPLAINTS AT THIS TIME.
[2019-03-13] MEDS: CALCIUM ACETATE 667 MG TAB PO SCH ×3 (09:20→16:19)
[2019-03-13] MEDS: ASPIRIN 81 MG TAB.CHEW PO SCH (09:21)
[2019-03-13] MEDS: FUROSEMIDE 40 MG TAB PO SCH (09:21)
[2019-03-13] MEDS: DOCUSATE SODIUM 100 MG GELCAP PO SCH ×2 (09:21→22:45)
[2019-03-13] MEDS: INSULIN LANTUS 100 UNITS/ML 10 ML VIAL SUBQ SCH (09:25)
--- NOTE | 2019-03-13 14:04 | NUR ---
Polls Or Surveys Interviewer Note: Patient's daughter Valerie's phone number is .
--- NOTE | 2019-03-13 14:19 | NUR ---
AWAKE AND ALERT VERBALLY RESPONSIVE NO PULMONARY DISTRESS NOTED HEMODIALYSIS IN PROGRESS
--- NOTE | 2019-03-13 18:16 | NUR ---
PATIENT IS SITTING UP IN BED EATING DINNER. ALL NEEDS HAVE BEEN MET, NO COMPLAINTS AT THIS TIME. WILL ENDORSE TO NIGHT RN
--- NOTE | 2019-03-13 19:18 | NUR ---
RECEIVED PATIENT FROM AM SHIFT NURSE. PATIENT IS A&O X4, AMBULATORY, STEADY GAIT WITH LEFT UPPER ARM AV SHUNT, DIALYSIS ACCESS. PATIENT HAS AN IV TO RIGHT AC 20G SALINE LOCK. PT IS ON ROOM AIR, BUT HAS BIPAP PRN, O2 PRN AND IS WILL MONITOR AND CONTINUE WITH PLAN OF CARE.
--- NOTE | 2019-03-13 21:00 | NUR ---
BP TAKEN WITH BP 171/53, HR 74 WILL ADMINISTER BP MEDICATIONS
--- NOTE | 2019-03-13 22:24 | NUR ---
PT C/O OF BUZZING NOISE IN THE ROOM; [id number] AB INITIO ETL DEVELOPER NIUEAN INTERPRETRER. I EXPLAINED TO PT THAT IT WAS THE ALARM ON THE BED. PT SAID AFTER BE PUT IT OFF, SHE DOES NOT HEAR ANY BUZZING NOISE ANYMORE
[2019-03-13] MEDS: INSULIN LISPRO SLIDING SCALE 100 UNITS/ML VIAL SUBQ PRN (22:43)
[2019-03-13] MEDS: ATORVASTATIN 80 MG TAB PO SCH (22:50)
[2019-03-14] VITALS: BP 151/47
--- NOTE | 2019-03-14 | NUR ---
PT'S BP 141/ 47 HR 74; WNL, WILL CONTINUE TO MONITOR
--- NOTE | 2019-03-14 00:10 | NUR ---
PT STILL AWAKE, LOOKING AT HER PHONE, INFORMED HER TO GET SOME SLEEP, PT VERBALIZED UNDERSTANDING. WILL CONTINUE TO MONITOR
--- NOTE | 2019-03-14 04:30 | NUR ---
CHECKED ON PATIENT. PT SLEEPING, NOT IN RESPIRATORY DISTRESS, NO COMPLAINTS OF PAIN. WILL CONTINUE TO MONITOR
[2019-03-14] MEDS: PIPERACILLIN/TAZOBACTAM 2.25 GM in DEXTROSE 5% 50 ML IV SCH (04:50)
[2019-03-14 06:00] VITALS: BP 171/50
--- NOTE | 2019-03-14 06:07 | NUR ---
CHECKED ON BP = 171/50 ; HR 72, WITH BP MEDS FOR AM. WILL ENDORSE TO NEXT SHIFT
--- NOTE | 2019-03-14 06:56 | NUR ---
PT STILL ASLEEP BUT AROUSABLE BY VERBAL STIMULI, AMBULATORY W/ STANDBY ASSIST. PT STABLE AT THIS TIME. WILL ENDORSE TO NEXT SHIFT.
[2019-03-14 07:00] LABS: ANION GAP 18.7 (8-16); POTASSIUM 4.7 mmol/L (3.5-5.1)
[2019-03-14] MEDS: ALBUTEROL SULFATE/IPRATROPIU 3 ML SOL IH SCH (07:00)
--- NOTE | 2019-03-14 07:15 | NUR ---
RECEIVED REPORT FROM AIR BATTLE MANAGER RN. PATIENT IS SLEEPING IN BED, VISIBLE CHEST RISE AND FALL. NO SIGNS OF RESPIRATORY DISTRESS. PATIENT IS AAO X4. WILL CONTINUE WITH PLAN OF CARE FOR THE DAY.
[2019-03-14] MEDS: BLOOD GLUCOSE MONITORING 1 DEV DEV FS SCH (07:25)
[2019-03-14 07:51] LABS: CREATININE 5.6 mg/dL (0.6-1.3)
--- NOTE | 2019-03-14 07:52 | NUR ---
CRITICAL LAB VALUE OF CREA 5.2. DID NOT REPORT TO DOCTOR D/T LAB VALUE TRENDING DOWN.
[2019-03-14 08:51] LABS: BASOPHILS % (AUTO) 0.2 % (0.0-2.0); EOSINOPHILS # (AUTO) 0.6 K/uL (0-0.4); EOSINOPHILS % (AUTO) 8.2 % (0.0-4.0); HEMATOCRIT 33.8 % (36-48); HEMOGLOBIN 10.9 g/dL (12.0-16.0); LYMPHOCYTES # (AUTO) 1.4 K/uL (2.5-16.5); LYMPHOCYTES % (AUTO) 20.5 % (20.5-51.1); MEAN CORPUSCULAR HEMOGLOBIN 30 pg (27-31); MEAN CORPUSCULAR HGB CONC 32 g/dL (33-37); MEAN CORPUSCULAR VOLUME 92.7 fL (80-94); MONOCYTES # (AUTO) 0.5 K/uL (0.8-1.0); MONOCYTES % (AUTO) 7.6 % (1.7-9.3); NEUTROPHILS # (AUTO) 4.3 K/uL (1.8-7.7); NEUTROPHILS % (AUTO) 63.5 % (42.2-75.2); PLATELET COUNT (AUTO) 233 K/uL (140-450); RED BLOOD CELL COUNT(AUTO) 3.64 MIL/uL (4.20-5.40); RED CELL DISTRIBUTION WIDTH 14.5 % (11.6-13.7); WHITE BLOOD COUNT (AUTO) 6.9 K/uL (4.8-10.8)
[2019-03-14] MEDS: hydrALAZINE 25 MG TAB PO SCH (08:59)
[2019-03-14] MEDS: CALCIUM ACETATE 667 MG TAB PO SCH (08:59)
[2019-03-14] MEDS: amLODIPine 5 MG TAB PO SCH (09:01)
[2019-03-14] MEDS: CARVEDILOL 12.5 MG TAB PO SCH (09:01)
[2019-03-14] MEDS: FUROSEMIDE 40 MG TAB PO SCH (09:02)
[2019-03-14] MEDS: ASPIRIN 81 MG TAB.CHEW PO SCH (09:02)
[2019-03-14] MEDS: INSULIN LANTUS 100 UNITS/ML 10 ML VIAL SUBQ SCH (09:07)
[2019-03-14] MEDS: RAMIPRIL 5 MG CAP PO SCH (09:10)
[2019-03-14] MEDS: DOCUSATE SODIUM 100 MG GELCAP PO SCH (09:10)
--- NOTE | 2019-03-14 10:15 | NUR ---
SPOKE TO PATIENT BEDSIDE WITH DR LECHUGA. PATIENT WILL BE DISCHARGED TODAY. INFORMED PATIENT THAT DISCHARGE PAPERWORK WILL BEGIN AND TO REACH OUT TO SON FOR AN ESTIMATED STRUCTURAL STEEL PAINTER TIME. TOLD PATIENT TO TAKE HER TIME.
[2019-03-14] MEDS ORDERED: HYDR-4420 PO (10:54)
[2019-03-14] MEDS ORDERED: FURO40TA9 PO (10:54)
[2019-03-14] MEDS ORDERED: INSU100S22 SUBQ (10:54)
[2019-03-14] MEDS ORDERED: AMOX-999 PO (11:27)
[2019-03-14] MEDS ORDERED: LISI-420 PO (11:27)
[2019-03-14] MEDS ORDERED: CALC500C17 PO (11:27)
[2019-03-14] MEDS ORDERED: hydrALAZINE 25 MG TAB PO SCH (13:00)
[2019-03-14] MEDS ORDERED: PIPERACILLIN/TAZOBACTAM 2.25 GM in DEXTROSE 5% 50 ML IV SCH (13:00)
== END 2019-03-14 12:10 | disposition home or self-care (01) | DRG 194 ==
LOC: MED 16:40 → MMU 19:18
PROVIDERS: ADMIT Family Medicine; ATTEND Family Medicine
PROC: 5A09357 Assistance with Respiratory Ventilation, Less than 24 Consecutive Hours, Continuous Positive Airway Pressure (ICD-10-PCS; 2019-03-10)
PROC: 5A1D70Z Performance of Urinary Filtration, Intermittent, Less than 6 Hours Per Day (ICD-10-PCS; principal; 2019-03-11)
PROC: 5A1D70Z Performance of Urinary Filtration, Intermittent, Less than 6 Hours Per Day (ICD-10-PCS; 2019-03-13)
DX: I13.2 Hypertensive heart and chronic kidney disease with heart failure and with stage 5 chronic kidney disease, or end stage renal disease (principal); N17.0 Acute kidney failure with tubular necrosis; J69.0 Pneumonitis due to inhalation of food and vomit; I50.43 Acute on chronic combined systolic (congestive) and diastolic (congestive) heart failure; I16.0 Hypertensive urgency; E66.9 Obesity, unspecified; M94.0 Chondrocostal junction syndrome [Tietze]; E11.22 Type 2 diabetes mellitus with diabetic chronic kidney disease; E11.65 Type 2 diabetes mellitus with hyperglycemia; N18.6 End stage renal disease; E87.5 Hyperkalemia; E83.39 Other disorders of phosphorus metabolism; E87.1 Hypo-osmolality and hyponatremia; D63.8 Anemia in other chronic diseases classified elsewhere; I65.22 Occlusion and stenosis of left carotid artery; Z68.34 Body mass index [BMI] 34.0-34.9, adult; Z71.3 Dietary counseling and surveillance; Z83.3 Family history of diabetes mellitus; Z82.49 Family history of ischemic heart disease and other diseases of the circulatory system
CPT/HCPCS: 36415; 71045; 76705; 80048; 80053; 80305; 81001; 82150; 82948; 83036; 83605; 83690; 83735; 83880; 84100; 84436; 84439; 84443; 84479; 84484; 85025; 85610; 85730; 87040; 87081; 87086; 90935; 93005; 93880; 94640; 94660; 96365; 99285; J0360; J1644; J1815; J1940; J2543; J7030; J7042; J7060; J7620; Q0092

== ENCOUNTER 2020-05-24 20:17 | Emergency (ER) | payer MEDICAID ==
[~2020-05-24] VITALS: Ht 157.5 cm; Wt 71.7 kg
[~2020-05-24 20:17] MED LIST changes: +AMLO-3 PO; -AMLO5TAB6 PO; +AMOX-999 PO; -ASPI-1718 PO; +ASPI-1822 PO; +CALC500C17 PO; +CALC667C12 PO; -CLON-528 TD; -FURO-570 PO; +FURO40TA9 PO; +HYDR-4420 PO; +INSU100S22 SUBQ; +LISI-420 PO; -PHO667 PO; -RAMI5CAP73 PO
[2020-05-24 20:30] VITALS: BP 145/80
--- NOTE | 2020-05-24 20:33 | NUR ---
TO LOBBY A/W BED AMBULATORY
--- NOTE | 2020-05-24 21:00 | NUR ---
SEEN AND EXAMINED BY PA WITH ORDERS AND CARRIED OUT
[2020-05-24] MEDS ORDERED: cefTRIAXone 1,000 MG in LIDOCAINE MPF 1% 2.1 ML IM ONE (21:05)
[2020-05-24] MEDS ORDERED: HYDROcodone/APAP 5/325 MG 1 TAB TAB PO ONE (21:05)
[2020-05-24] MEDS ORDERED: HYDROcodone/APAP 5/325 MG 1 TAB TAB ONE (22:14)
[2020-05-24] MEDS ORDERED: cefTRIAXone 1,000 MG VIAL ONE (22:31)
[2020-05-24] MEDS ORDERED: LIDOCAINE MPF 1% 5 ML ONE (22:36)
[2020-05-24 22:46] VITALS: BP 145/80
--- NOTE | 2020-05-24 22:46 | NUR ---
Patient discharged with v/s stable. Written and verbal after care instructions given and explained. Patient alert, oriented and verbalized understanding of instructions. Ambulatory with steady gait. All questions addressed prior to discharge. ID band removed. Patient advised to follow up with PMD. Rx of TYLENOL, KEFLEX given. Patient educated on indication of medication including possible reaction and side effects. Opportunity to ask questions provided and answered.
== END 2020-05-24 22:46 | disposition home or self-care (01) ==
LOC: MED 20:17
DX: E11.622 Type 2 diabetes mellitus with other skin ulcer (principal); L97.919 Non-pressure chronic ulcer of unspecified part of right lower leg with unspecified severity; E11.22 Type 2 diabetes mellitus with diabetic chronic kidney disease; I12.0 Hypertensive chronic kidney disease with stage 5 chronic kidney disease or end stage renal disease; N18.6 End stage renal disease; Z99.2 Dependence on renal dialysis; I10 Essential (primary) hypertension; Z79.4 Long term (current) use of insulin; Z79.899 Other long term (current) drug therapy
CPT/HCPCS: 73610; 96372; 99283; J0696; J2001

== ENCOUNTER 2020-06-17 14:49 | Inpatient (IN) | payer MEDICAID, SELFPAY ==
[~2020-06-17] VITALS: Ht 149.9 cm; Wt 29.0 kg
[2020-06-17 15:16] VITALS: BP 136/60
--- NOTE | 2020-06-17 15:30 | NUR ---
54 YEAR-OLD FEMALE AMBULATORY TO CHAIR C WITH COMPLAINTS OF BLOODY DIARRHEA LAST NIGHT. ALSO COMPLAINED OF 2/10 PAIN OF DORSAL ASPECT OF BOTH FEET. ESRD WITH LAST HD TODAY. DIALYSIS ACCESS TO LEFT UPPER EXTREMITY COVERED BY DRESSING. NO LONGER PRODUCING URINE.
[2020-06-17 16:26] LABS: BASOPHILS # (AUTO) 0.1 K/uL (0.00-0.22); EOSINOPHILS # (AUTO) 0.4 K/uL (0-0.4); HEMATOCRIT 26.5 % (36-48); HEMOGLOBIN 8.7 g/dL (12.0-16.0); LYMPHOCYTES # (AUTO) 0.9 K/uL (2.5-16.5); LYMPHOCYTES % (AUTO) 12.4 % (20.5-51.1); MEAN CORPUSCULAR HEMOGLOBIN 30 pg (27-31); MEAN CORPUSCULAR HGB CONC 33 g/dL (33-37); MEAN CORPUSCULAR VOLUME 91.5 fL (80-94); MONOCYTES % (AUTO) 13.7 % (1.7-9.3); NEUTROPHILS # (AUTO) 4.7 K/uL (1.8-7.7); NEUTROPHILS % (AUTO) 66.9 % (42.2-75.2); PLATELET COUNT (AUTO) 127 K/uL (140-450); WHITE BLOOD COUNT (AUTO) 7.1 K/uL (4.8-10.8)
[2020-06-17 16:47] LABS: ALBUMIN 2.8 g/dL (3.4-5.0); ANION GAP 9.2 (8-16); POTASSIUM 4.2 mmol/L (3.5-5.1); TOTAL BILIRUBIN 1.5 mg/dL (0.0-1.0)
[2020-06-17 16:52] LABS: CREATININE 4.5 mg/dL (0.6-1.3)
[2020-06-17 17:00] LABS: PROTHROMBIN TIME 11.1 secs (10.8-13.4)
[2020-06-17] MEDS ORDERED: HYDROcodone/APAP 5/325 MG 1 TAB TAB PO ONE (18:50)
--- NOTE | 2020-06-17 18:52 | NUR ---
C/O 9/10 PAIN TO SOLES OF BOTH FEET; + [facility] PEDAL PULSES. DR DELUNA AWARE.
--- NOTE | 2020-06-17 18:54 | NUR ---
BRIGHT RED BLOOD NOTED ON SHEETS WHEN PATIENT GOT UP TO WALK TO THE BATHROOM. DR DELUNA AWARE OF BLEEDING.
--- NOTE | 2020-06-17 19:19 | NUR ---
REPORT RECEIVED FROM INÉS MARLOW FOR CONTINUITY OF CARE
--- NOTE | 2020-06-17 19:22 | NUR ---
MEDICATED FOR PAIN IN FEET WITH NORCO 1 TAB PO.
--- NOTE | 2020-06-17 20:15 | NUR ---
PT C/O 10/10 PAIN IN HER FEET. PAGED DR WALLER. ORDERS RECEIVED TO GIVE MORPHINE 1MG ONE TIME AND ULTRASOUND TO R/O DVT.
[2020-06-17] MEDS ORDERED: MORPHINE SULFATE 2 MG/ML SYR IVP ONE (20:25)
--- NOTE | 2020-06-17 20:30 | NUR ---
ULTRASOUND AT BEDSIDE
[2020-06-17] MEDS ORDERED: guaiFENesin DM 200/20 MG-10 ML 10 ML UDC PO PRN (21:10)
[2020-06-17] MEDS ORDERED: DOCUSATE SODIUM 100 MG GELCAP PO PRN (21:10)
[2020-06-17] MEDS ORDERED: POTASSIUM CHLORIDE 10 MEQ TABER PO PRN (21:10)
[2020-06-17] MEDS ORDERED: ONDANSETRON 4 MG/2 ML VIAL IM/IVP PRN (21:10)
[2020-06-17] MEDS ORDERED: ZOLPIDEM 5 MG TAB PO PRN (21:10)
[2020-06-17 21:44] LABS: CHOL/HDL RATIO 2.6 (1-4.5); FREE T4 (FREE THYROXINE) 1.09 ng/dL (0.76-1.46); MAGNESIUM 2.9 mg/dL (1.8-2.4); THYROID STIMULATING HORMONE 1.74 uIU/mL (0.34-3.74)
[2020-06-17] MEDS ORDERED: cefTRIAXone 1,000 MG VIAL ONE (22:12)
--- NOTE | 2020-06-17 22:34 | NUR ---
PT RESTING IN BED, EYES CLOSED, RESPIRATIONS EVEN AND UNLABORED. CHEST RISE IS SYMMETRICAL.
--- NOTE | 2020-06-17 23:50 | NUR ---
PT RECTALLY BLEEDING. CHANGED SHEETS AND GOWN. DIAPER PLACED ON PT.
--- NOTE | 2020-06-18 00:25 | NUR ---
PT RESTING IN BED, EYES CLOSED, RESPIRATIONS EVEN AND UNLABORED. CHEST RISE IS SYMMETRICAL.
--- NOTE | 2020-06-18 02:39 | NUR ---
PT RESTING IN BED, EYES CLOSED, RESPIRATIONS EVEN AND UNLABORED. CHEST RISE IS SYMMETRICAL.
--- NOTE | 2020-06-18 03:25 | NUR ---
PT C/O 6/10 PAIN IN HER FEET. NORCO PRN GIVEN
[2020-06-18] MEDS: HYDROcodone/APAP 7.5/325 MG 1 TAB PO PRN (03:29)
--- NOTE | 2020-06-18 05:30 | NUR ---
RT AT BEDSIDE PERFORMING EKG
--- NOTE | 2020-06-18 07:15 | NUR ---
REPORT GIVEN TO SAURAV MARLOW AND LILLY RN FOR CONTINUITY OF CARE
--- NOTE | 2020-06-18 07:16 | NUR ---
REPORT RECEIVED FROM KASHMIR SUÁREZ
--- NOTE | 2020-06-18 08:25 | NUR ---
RECEIVED REPORT FROM ER. PT AAOX4, PT ON ROOM AIR. PT HAS RAC 20G, SKIN INTACT, PT HAS NANCY AV SHUNT FOR DIALYSIS. PT ON BEDREST. WILL AWAIT FOR PT TO COME TO ROOM
[2020-06-18 08:26] LABS: BASOPHILS # (AUTO) 0.1 K/uL (0.00-0.22); BASOPHILS % (AUTO) 1.4 % (0.0-2.0); EOSINOPHILS # (AUTO) 0.1 K/uL (0-0.4); EOSINOPHILS % (AUTO) 2.2 % (0.0-4.0); HEMATOCRIT 20.8 % (36-48); LYMPHOCYTES # (AUTO) 0.8 K/uL (2.5-16.5); LYMPHOCYTES % (AUTO) 13.4 % (20.5-51.1); MEAN CORPUSCULAR HEMOGLOBIN 31 pg (27-31); MEAN CORPUSCULAR HGB CONC 33 g/dL (33-37); MEAN CORPUSCULAR VOLUME 91.9 fL (80-94); MONOCYTES # (AUTO) 0.6 K/uL (0.8-1.0); NEUTROPHILS # (AUTO) 4.6 K/uL (1.8-7.7); PLATELET COUNT (AUTO) 134 K/uL (140-450); RED BLOOD CELL COUNT(AUTO) 2.26 MIL/uL (4.20-5.40); RED CELL DISTRIBUTION WIDTH 18.7 % (11.6-13.7); WHITE BLOOD COUNT (AUTO) 6.2 K/uL (4.8-10.8)
--- NOTE | 2020-06-18 08:27 | NUR ---
REPORT GIVEN TO KASHMIR MILAN
[2020-06-18 08:39] VITALS: BP 99/27
--- NOTE | 2020-06-18 08:39 | NUR ---
RECEIVED PT IN ROOM. PT IS ASLEEP. PT STATES SHE IS SO SLEEPY. INTRODUCED PT TO ROOM. OBTAINED VITAL SIGNS AND MRSA SWAB. PT STABLE, WILL CONTINUE TO MONITOR.
--- NOTE | 2020-06-18 08:45 | NUR ---
Patient will be admitted to care of Dr. Figueroa. Admited to Med-Surg. Will go to room 127-A. Belongings list completed. Report to KASHMIR Che.
--- NOTE | 2020-06-18 08:45 | NUR ---
Note tevin in ED - 06/18/20 at 0856 by [facility] Patient will be admitted to care of Dr. Figueroa. Admited to Med-Surg. Will go to room 127-A. [facility] list completed. Report to KASHMIR Che.
[2020-06-18] MEDS: PANTOPRAZOLE 40 MG TABEC PO SCH (08:55)
--- NOTE | 2020-06-18 08:56 | NUR ---
PATIENT HAS BEEN SCREENED AND CATEGORIZED MODERATE NUTRITION RISK. PATIENT WILL BE SEEN WITHIN 3-5 DAYS OF ADMISSION. 06/20/20 06/22/[address]
--- NOTE | 2020-06-18 08:58 | NUR ---
ADMINISTERED SCHEDULED MEDICATION, MEDICATION EDUCATION PROVIDED. PT TOLERATED WELL. PT IS STABLE, WILL CONTINUE TO MONITOR.
[2020-06-18 08:59] LABS: ANION GAP 11.8 (8-16); CARBON DIOXIDE 29.4 mmol/L (21-32); POTASSIUM 5.2 mmol/L (3.5-5.1)
[2020-06-18 09:25] LABS: HEMOGLOBIN 6.9 g/dL (12.0-16.0)
[2020-06-18 09:43] LABS: CREATININE 5.8 mg/dL (0.6-1.3)
--- NOTE | 2020-06-18 10:39 | NUR ---
RECEIVED VERBAL ORDER FROM DR WALLER FOR PACKED CELLS FOR PT HGB IS 6.9, WILL INPUT ORDER AND CARRY IT OUT.
--- NOTE | 2020-06-18 12:11 | NUR ---
SOCIAL WORK NOTE: Patient's Orientation Unable To Assess Information Provided By KAMALA LORENZO - DAUGHTER Comments SW WAS UNABLE TO MEET PATIENT AT BEDSIDE. SW COMPLETED ASSESSMENT WITH PATIENT'S DAUGHTER. Wheat Combine Driver, Realtionship and Phone Number KAMALA ARANDA [phone] Healthcare Power of Health Safety Manager No Does Patient Have a POLST No Identifying Problems No Social Work Triggers Is A Social Work Consult Needed No Mandate Report Filed No Explanation Of Identifying Problems PATIENT IS A 54-YEAR-OLD FEMALE ADMITTED FOR ANEMIA AND DIVERTICULOSIS. PATIENT HAS PMHX OF DIABETES, HYPERTENSION AND RENAL DISEASE. Admitted From Home Pre-Admission Level Of Functioning Status Independent/Ambulatory Prior Resources/Services Used In Last 12 Months No Prior Resources Used Prior DME No Prior DME Used Dialysis Hemodialysis Name And Phone Number of Dialysis Facility [facility] ESRD Outpatient Days Sun ESRD Outpatient Time 0945 Living Situation Lives With Family House Patient Had Caregiver No Home Support No Caregiver Issues Financial Issues No Known Financial Issue Referral To The Financial Counselor Needed No Factors/Needs No D/C Needs Identified Pt/Rep Participated In Discharge Plan Yes Patient/Family Agress With Discharge Plan Yes Discharge Plan Comments TENTATIVE DISCHARGE PLAN IS FOR PATIENT TO RETURN HOME. DC Plan Status Initiated
--- NOTE | 2020-06-18 12:44 | NUR ---
NOTIFED DR WALLER PT SHOULD BE ON TELEMETRY BECAUSE SHE HAS LOW BP AND NEEDS BLOOD TRANSFUSION. RECEIVED TORB FOR TRANSFER TO TELEMETRY. WILL INPUT ORDERS AND CARRY IT OUT.
[2020-06-18] MEDS ORDERED: DEXTROSE 50% 50 ML SYR IVP PRN (13:25)
--- NOTE | 2020-06-18 14:07 | NUR ---
OBTAINED PRE-TRANSFUSION VITAL AND BP IS 180/155, NOTIFIED DR WALLER AND RECEIVED TORB FOR HYDRALAZINE 10MG IVP X1. WILL INPUT ORDER AND CARRY IT OUT.
[2020-06-18] MEDS ORDERED: hydrALAZINE 20 MG/ML VIAL ONE (14:12)
--- NOTE | 2020-06-18 14:19 | NUR ---
ADMINISTERED SCHEDULED MEDICATION FOR BP 180/155 AND HR 60. MEDICATION EDUCATION PROVIDED. PT TOLERATED WELL. PT STABLE, WILL CONTINUE TO MONITOR.
[2020-06-18] MEDS ORDERED: hydrALAZINE 20 MG/ML VIAL IVP SCH (14:30)
[2020-06-18 16:00] VITALS: BP 111/60
[2020-06-18] MEDS ORDERED: BOWEL EVACUANT DRINK 4,000 ML PDS PO SCH (16:15)
[2020-06-18] MEDS ORDERED: FUROSEMIDE 20 MG/2 ML VIAL IVP SCH (16:28)
[2020-06-18] MEDS: BLOOD GLUCOSE MONITORING 1 DEV DEV FS SCH ×2 (16:30→21:00)
[2020-06-18] MEDS: POLYETHYLENE GLYCOL 17 GM/PKT PO SCH (17:35)
[2020-06-18] MEDS: LACTULOSE 20 GM/30 ML UDC PO SCH ×3 (17:35→22:27)
[2020-06-18] MEDS: hydrALAZINE 25 MG TAB PO SCH (17:37)
[2020-06-18] MEDS: METOCLOPRAMIDE 10 MG/2 ML INJ VIAL IVP SCH (17:39)
[2020-06-18] MEDS: NITROGLYCERIN 2% 1 GM PKT TP SCH (18:00)
--- NOTE | 2020-06-18 19:00 | NUR ---
PATIENT RECEIVED IN BED ALERT AND RESPONSIVE. PATIENT VERBALIZED NEEDS AND CONCERNS TO RN. DISCUSSED WITH PATIENT RN PLAN OF CARE. DISCUSSED FALL AND SAFETY INTERVENTIONS, MEDICATION REGIMEN AND RN PLAN OF CARE. PATIENT RECEPTIVE TO RN PLAN OF CARE. VSS. NO ACUTE DISTRESS NOTED.
--- NOTE | 2020-06-18 19:30 | NUR ---
ENDORSE PT TO NIGHT NURSE FOR CONTINUITY OF CARE. ENDORSE TO NIGHT NURSE TO GIVE PT BLOOD TRANSFUSION.NOTIFIED [facility] PT HAS PENDING DIALYSIS FOR 06/19
[2020-06-18 21:00] VITALS: BP 112/62
[2020-06-18] MEDS ORDERED: MAGNESIUM CITRATE 300 ML BTL PO SCH (21:00)
[2020-06-18] MEDS: ATORVASTATIN 80 MG TAB PO SCH (21:00)
[2020-06-18] MEDS ORDERED: LACTULOSE 20 GM/30 ML UDC PO SCH (21:00)
[2020-06-18] MEDS: carvediloL 12.5 MG TAB PO SCH (22:26)
[2020-06-19] VITALS (10 sets, daily range): BP systolic 90–124; BP diastolic 33–56
--- NOTE | 2020-06-19 | NUR ---
Patient sleeping during rounding. Fall and safety precautions maintained. VSS. Medications administered as ordered. No acute distress noted.
--- NOTE | 2020-06-19 04:00 | NUR ---
Patient sleeping during rounding, easily aroused. VSS, No acute distress noted
[2020-06-19] MEDS: BLOOD GLUCOSE MONITORING 1 DEV DEV FS SCH ×4 (05:45→21:12)
[2020-06-19] MEDS: NITROGLYCERIN 2% 1 GM PKT TP SCH ×4 (06:27→17:05)
--- NOTE | 2020-06-19 07:20 | NUR ---
RECEIVED PATIENT FROM NIGHT NURSE. PATIENT IN BED SLEEPING, CHEST NOTED RISING. NO NOTED ACUTE S/S DISTRESS. RH 22G SL. GARRY AV HD ACCESS. PT HAS HD TODAY. SAFETY MEASURES IN PLACE. CALL LIGHT WITHIN REACH. WILL CONTINUE TO MONITOR.
[2020-06-19 08:07] LABS: FOLIC ACID 10.6 ng/mL (>3.0); T4 (THYROXINE) 5.3 ug/dL (4.5-12.0)
[2020-06-19] MEDS: carvediloL 12.5 MG TAB PO SCH ×2 (09:00→21:12)
[2020-06-19] MEDS: amLODIPine 5 MG TAB PO SCH (09:00)
[2020-06-19] MEDS: hydrALAZINE 25 MG TAB PO SCH ×3 (09:00→17:05)
[2020-06-19] MEDS ORDERED: ASPIRIN 81 MG TAB.CHEW PO SCH (09:00)
[2020-06-19] MEDS ORDERED: MAGNESIUM CITRATE 300 ML BTL PO ONE (09:10)
[2020-06-19] MEDS: LACTULOSE 20 GM/30 ML UDC PO SCH ×3 (10:06→21:11)
[2020-06-19] MEDS: METOCLOPRAMIDE 10 MG/2 ML INJ VIAL IVP SCH (10:07)
[2020-06-19] MEDS: POLYETHYLENE GLYCOL 17 GM/PKT PO SCH ×3 (10:07→17:05)
[2020-06-19] MEDS: PANTOPRAZOLE 40 MG TABEC PO SCH (10:08)
[2020-06-19] MEDS: INSULIN LANTUS 100 UNITS/ML 10 ML VIAL SUBQ SCH (10:09)
--- NOTE | 2020-06-19 10:15 | NUR ---
PATIENT IN BED AWAKE AND ALERT. MORNING ROUTINE MEDICATIONS GIVEN. PATIENT TOLERATED WELL. BP MEDS HELD D/T LOW PARAMETERS AND HD PENDING THIS AM. PATIENT ENCOURAGED DRINKING BOWEL PREP FOR COLONOSCOPY. PATIENT VERBALIZED UNDERSTANDING. RH 22G SL. GARRY AV SHUNT NOTED, T/B NOTED. RESP EVEN AND UNLABORED ON ROOM AIR. DENIED OF PAIN AT THIS TIME. PLAN OF CARE DISCUSSED. PATIENT VERBALIZED UNDERSTANDING. CALL LIGHT WITHIN REACH. WILL CONTINUE TO MONITOR.
--- NOTE | 2020-06-19 11:03 | NUR ---
SPOKE TO DR LINDA. PATIENT IS NOT TAKING BOWEL PREP QUICK ENOUGH. PATIENT REPORTED TO HAVE 3 SOFT BOWEL MOVEMENTS OVER NIGHT. GOLYTELY STILL AT BED SIDE WITH 40% REMAINING. MAG CITRATE TAKEN 50%. DR LINDA GAVE ORDER TO CLEAR LIQUID DIET AND WILL REEVALUATE PATIENT TOMORROW OR SUNDAY FOR COLONOSCOPY. PATIENT MADE AWARE. CONTINUE TO GIVE BOWEL PREP.
[2020-06-19 12:03] LABS: BASOPHILS # (AUTO) 0.1 K/uL (0.00-0.22); BASOPHILS % (AUTO) 1.5 % (0.0-2.0); EOSINOPHILS # (AUTO) 0.4 K/uL (0-0.4); EOSINOPHILS % (AUTO) 4.6 % (0.0-4.0); HEMATOCRIT 27.2 % (36-48); LYMPHOCYTES # (AUTO) 1.2 K/uL (2.5-16.5); LYMPHOCYTES % (AUTO) 15.9 % (20.5-51.1); MEAN CORPUSCULAR HEMOGLOBIN 30 pg (27-31); MEAN CORPUSCULAR HGB CONC 33 g/dL (33-37); MEAN CORPUSCULAR VOLUME 91.4 fL (80-94); MONOCYTES # (AUTO) 1.1 K/uL (0.8-1.0); MONOCYTES % (AUTO) 13.5 % (1.7-9.3); NEUTROPHILS % (AUTO) 64.5 % (42.2-75.2); PLATELET COUNT (AUTO) 147 K/uL (140-450); RED BLOOD CELL COUNT(AUTO) 2.98 MIL/uL (4.20-5.40); RED CELL DISTRIBUTION WIDTH 18.1 % (11.6-13.7); WHITE BLOOD COUNT (AUTO) 7.8 K/uL (4.8-10.8)
--- NOTE | 2020-06-19 12:25 | NUR ---
BLOOD SUGAR 135. NO INSULIN COVERAGE PER SLIDING SCALE. HD STARTED. NITRO OINTMENT HELD D/T LOW BP. PATIENT IN BED RESTING. NO NOTED ACUTE S/S DISTRESS. CALL LIGHT WITHIN REACH. WILL CONTINUE TO MONITOR.
[2020-06-19 12:39] LABS: ANION GAP 22.2 (8-16); POTASSIUM 5.2 mmol/L (3.5-5.1)
[2020-06-19 12:57] LABS: CREATININE 7.4 mg/dL (0.6-1.3)
[2020-06-19] MEDS: EPOETIN ALFA 4,000 UNITS/ML VIAL IV SCH (15:35)
[2020-06-19] MEDS: HYDROcodone/APAP 7.5/325 MG 1 TAB PO PRN (15:35)
--- NOTE | 2020-06-19 15:45 | NUR ---
HD COMPLETE. 2L OUTPUT. PATIENT IN BED AWAKE AND ALERT. ABLE TO MAKE NEEDS KNOWN. NO ACUTE S/S DISTRESS AT THIS TIME. CALL LIGHT WITHIN REACH. WILL CONTINUE TO MONITOR.
--- NOTE | 2020-06-19 17:35 | NUR ---
BLOOD SUGAR 135. NO INSULIN COVERAGE PROVIDED. PATIENT IN BED SLEEPING. NO NOTED DISTRESS. WILL CONTINUE TO MONITOR.
--- NOTE | 2020-06-19 19:40 | NUR ---
ENDORSED PATIENT TO NIGHT NURSE. PATIENT IN STABLE CONDITION.
[2020-06-19] MEDS: ATORVASTATIN 80 MG TAB PO SCH (21:12)
[2020-06-20] VITALS: BP 100/54
[2020-06-20] MEDS: NITROGLYCERIN 2% 1 GM PKT TP SCH ×4 (00:18→17:24)
[2020-06-20 04:00] VITALS: BP 124/48
[2020-06-20] MEDS: HYDROcodone/APAP 7.5/325 MG 1 TAB PO PRN (05:18)
--- NOTE | 2020-06-20 07:40 | NUR ---
RECEIVED PATIENT FROM NIGHT NURSE. PATIENT IN BED SLEEPING, CHEST NOTED RISING. RESP EVEN AND UNLABORED ON ROOM AIR. NO NOTED ACUTE S/S DISTRESS. GARRY AV SHUNT FOR HD. RH 22G, SL. SAFETY MEASURES IN PLACE. CALL LIGHT WITHIN REACH. WILL CONTINUE TO MONITOR.
[2020-06-20 08:00] VITALS: BP 119/40
[2020-06-20] MEDS: BLOOD GLUCOSE MONITORING 1 DEV DEV FS SCH ×4 (08:23→22:40)
[2020-06-20] MEDS: hydrALAZINE 25 MG TAB PO SCH ×3 (09:00→17:00)
--- NOTE | 2020-06-20 09:25 | NUR ---
PATIENT IN BED SLEEPING, EASILY AROUSABLE TO ALERT. EYE OPENING SPONTANEOUS. RESP EVEN AND UNLABORED ON ROOM AIR. DENIED OF ANY SOB OR PAIN AT THIS TIME. MORNING ROUTINE MEDICATIONS GIVEN. PATIENT TOLERATED WELL. GARRY AV SHUNT FOR HD NOTED WITH T/B NOTED. RH 22G INTACT AND PATENT, SL. PLAN OF CARE DISCUSSED, PATIENT VERBALIZED UNDERSTANDING. NO REPORT OF BLOOD IN STOOL LAST NIGHT. CONTINUE ON BOWEL PREP FOR COLONOSCOPY WITH DR LINDA. PATIENT VERBALIZED UNDERSTANDING. CALL LIGHT WITHIN REACH. WILL CONTINUE TO MONITOR.
[2020-06-20] MEDS: INSULIN LANTUS 100 UNITS/ML 10 ML VIAL SUBQ SCH (09:28)
[2020-06-20] MEDS: LACTULOSE 20 GM/30 ML UDC PO SCH ×2 (09:28→22:40)
[2020-06-20] MEDS: PANTOPRAZOLE 40 MG TABEC PO SCH (09:29)
[2020-06-20] MEDS: carvediloL 12.5 MG TAB PO SCH ×2 (09:29→21:00)
[2020-06-20] MEDS: amLODIPine 5 MG TAB PO SCH (09:29)
[2020-06-20] MEDS: POLYETHYLENE GLYCOL 17 GM/PKT PO SCH ×3 (09:29→17:01)
[2020-06-20 11:44] LABS: BASOPHILS # (AUTO) 0.1 K/uL (0.00-0.22); BASOPHILS % (AUTO) 1.8 % (0.0-2.0); EOSINOPHILS # (AUTO) 0.3 K/uL (0-0.4); EOSINOPHILS % (AUTO) 4.1 % (0.0-4.0); HEMATOCRIT 25.8 % (36-48); HEMOGLOBIN 8.4 g/dL (12.0-16.0); LYMPHOCYTES % (AUTO) 13.9 % (20.5-51.1); MEAN CORPUSCULAR HEMOGLOBIN 31 pg (27-31); MEAN CORPUSCULAR HGB CONC 32 g/dL (33-37); MEAN CORPUSCULAR VOLUME 95.1 fL (80-94); MONOCYTES # (AUTO) 1.1 K/uL (0.8-1.0); MONOCYTES % (AUTO) 15.4 % (1.7-9.3); NEUTROPHILS # (AUTO) 4.6 K/uL (1.8-7.7); NEUTROPHILS % (AUTO) 64.8 % (42.2-75.2); PLATELET COUNT (AUTO) 142 K/uL (140-450); RED BLOOD CELL COUNT(AUTO) 2.72 MIL/uL (4.20-5.40); RED CELL DISTRIBUTION WIDTH 18.8 % (11.6-13.7)
[2020-06-20 11:57] LABS: ANION GAP 16.2 (8-16); CARBON DIOXIDE 25.2 mmol/L (21-32); POTASSIUM 4.4 mmol/L (3.5-5.1)
[2020-06-20 12:00] VITALS: BP 112/54
[2020-06-20 12:01] LABS: CREATININE 5.9 mg/dL (0.6-1.3)
[2020-06-20 16:00] VITALS: BP 102/42
[2020-06-20] MEDS ORDERED: Z-GUARD PASTE TP ONE (16:41)
--- NOTE | 2020-06-20 17:24 | NUR ---
BLOOD SUGAR 129. NO INSULIN COVERAGE PROVIDED. HYDRALAZINE AND NITROGLYCERINE OINTMENT HELD D/T LOW BP. PATIENT IN BED AWAKE AND ALERT. ABLE TO FOLLOW COMMAND. NO RESP DISTRESS AT THIS TIME. CALL LIGHT WITHIN REACH. WILL CONTINUE TO MONITOR
--- NOTE | 2020-06-20 19:15 | NUR ---
ENDORSED PATIENT TO NIGHT NURSE. PATIENT IN STABLE CONDITION.
[2020-06-20 20:00] VITALS: BP 114/31
[2020-06-20] MEDS: ATORVASTATIN 80 MG TAB PO SCH (22:45)
--- NOTE | 2020-06-20 23:00 | NUR ---
BP RE CHECK - 110 / 54 - COREG NOT GIVEN . FLACC O - ON TELE MONITOR
[2020-06-21] VITALS: BP 129/50
--- NOTE | 2020-06-21 | NUR ---
MADE ROUNDS , NO S/SX OF ACUTE DISTRESS NOTED . REMINDS NPO EXCEPT MEDS - FOR OR
--- NOTE | 2020-06-21 00:20 | NUR ---
NITRO PATCH NOT GIVEN - BP 100/ 52 - NO C/O OF CHEST PAIN - ON TELE MONITOR
[2020-06-21 04:00] VITALS: BP 113/41
--- NOTE | 2020-06-21 04:00 | NUR ---
O2 SAT WNL . NO S/SX OF ACUTE DISTRESS NOTED
[2020-06-21] MEDS: ACETAMINOPHEN 325 MG TAB PO PRN (05:51)
[2020-06-21] MEDS: NITROGLYCERIN 2% 1 GM PKT TP SCH ×2 (06:00)
--- NOTE | 2020-06-21 06:00 | NUR ---
C/O FOOT PAIN - JUST MEDICATED W/ TYLENOL .
--- NOTE | 2020-06-21 06:10 | NUR ---
BP RE CHECK 112/ 54 . NO C/O CHEST PAIN - ON TELE MONITOR . AWAKE .
[2020-06-21] MEDS: BLOOD GLUCOSE MONITORING 1 DEV DEV FS SCH ×4 (06:33→20:32)
--- NOTE | 2020-06-21 07:38 | NUR ---
ENDORSED - PT - STABLE - FOR STOOL OB .
--- NOTE | 2020-06-21 07:45 | NUR ---
REC'D BEDSIDE ENDORSEMENT FROM NIGHTSHIFT NURSE FOR CONTINUITY OF CARE.
[2020-06-21 08:00] VITALS: BP 116/52
[2020-06-21] MEDS ORDERED: diphenhydrAMINE 50 MG/ML VIAL ONE (08:37)
[2020-06-21] MEDS ORDERED: fentaNYL citrate 0.05 MG/ML VIAL ONE (08:37)
[2020-06-21] MEDS ORDERED: MIDAZOLAM 5 MG/5 ML VIAL ONE (08:37)
[2020-06-21] MEDS: hydrALAZINE 25 MG TAB PO SCH ×3 (09:00→17:00)
[2020-06-21] MEDS: LACTULOSE 20 GM/30 ML UDC PO SCH ×2 (09:00→10:51)
[2020-06-21] MEDS: PANTOPRAZOLE 40 MG TABEC PO SCH (09:00)
[2020-06-21] MEDS: amLODIPine 5 MG TAB PO SCH (09:00)
[2020-06-21] MEDS: INSULIN LANTUS 100 UNITS/ML 10 ML VIAL SUBQ SCH (09:00)
[2020-06-21] MEDS: carvediloL 12.5 MG TAB PO SCH ×2 (09:00→20:33)
[2020-06-21] MEDS: POLYETHYLENE GLYCOL 17 GM/PKT PO SCH (09:00)
--- NOTE | 2020-06-21 09:56 | NUR ---
AM MEDS NOT GIVEN, PATIENT TAKEN TO SURGERY.
[2020-06-21] MEDS ORDERED: GLUCAGON 1 MG VIAL ONE (10:41)
[2020-06-21] MEDS ORDERED: GLUCAGON 1 MG VIAL IVP ONE (10:55)
[2020-06-21] MEDS ORDERED: MIDAZOLAM 2 MG/2 ML VIAL IVP ONE (10:55)
[2020-06-21] MEDS ORDERED: fentaNYL citrate 0.05 MG/ML VIAL IVP ONE (10:55)
--- NOTE | 2020-06-21 10:56 | NUR ---
ADMINISTERED PRESCRIBED MEDS PER MD ORDER. PATIENT TOLERATED WELL. MEDICATION EDUCATION REINFORCEMENT NEEDED. SAFETY MEASURES IN PLACE. WILL CONT TO MONITOR.
[2020-06-21 12:00] VITALS: BP 98/44
[2020-06-21] MEDS: INSULIN LISPRO SLIDING SCALE 100 UNITS/ML VIAL SUBQ PRN ×2 (12:08→22:35)
--- NOTE | 2020-06-21 12:11 | NUR ---
PATIENT IS RESTING IN BED. NO SIGNS OF DISTRESS OR DISCOMFORT. ADMINISTERED INSULIN FOR BG 152. PATIENT TOLERATED WELL. SAFETY MEASURES IN PLACE. WILL CONT TO MONITOR.
--- NOTE | 2020-06-21 13:33 | NUR ---
MEDICATION HELD DUE TO BP 98/44.
[2020-06-21 13:54] LABS: ANION GAP 14.4 (8-16); CARBON DIOXIDE 26.5 mmol/L (21-32); POTASSIUM 4.9 mmol/L (3.5-5.1)
[2020-06-21 14:03] LABS: CREATININE 7.4 mg/dL (0.6-1.3)
--- NOTE | 2020-06-21 14:28 | NUR ---
DISCHARGE PLANNING: THIS IS A 54 Y/O FEMALE PATIENT FROM HOME, WHO CAME IN DUE TO BLOODY STOOL, FOOT PAIN AND BACK PAIN. PAST MEDICAL HISTORY INCLUDE DIABETES, HTN, RENAL DISEASE ESRD. CURRENT LABS INCLUDE WBC 7.0, H/H 8.4/25.8, NA/K 131/4.9, BUN/CREA 50/1.4. NEPHRO, GI CONSULTS IN PLACE. FOR HD TOMORROW. S/P COLONOSCOPY BY DR. LINDA 06/21 - AWAIT BIOPSY REPORT, AVOID ANY KIND OF BLOOD THINNING MEDICINE, ASPIRIN AND NON STEROIDAL FOR AT LEAST 2-4 WEEKS. DC PLAN BACK TO HOME ONCE STABLE. CONTACTED [facility] AT [phone], ABLE TO SPEAK TO SHELLEY AND SHE CONFIRMED THAT THIS IS THEIR PATIENT. CHAIR TIME IS TTHS AT 1000. PER [facility], THEY ARE ABLE TO TAKE THE PATIENT BACK SINCE PATIENT IS COVID NEGATIVE. Addendum: 06/22/20 at 1548 by Darleen Perez CM SHELLEY OF [facility] MADE AWARE THAT PATIENT WILL BE DISCHARGING TODAY. CLINICALS SENT TO [phone].
[2020-06-21 16:00] VITALS: BP 121/38
--- NOTE | 2020-06-21 18:37 | NUR ---
ADMINISTERED PRESCRIBED MEDS PER MD ORDER. PATIENT TOLERATED WELL. MEDICATION EDUCATION REINFORCEMENT NEEDED DUE TO LANGUAGE BARRIER. SAFETY MEASURES IN PLACE. WILL CONT TO MONITOR.
--- NOTE | 2020-06-21 19:30 | NUR ---
ENDORSED PATIENT TO NIGHTSHIFT NURSE FOR CONTINUITY OF CARE
[2020-06-21 20:00] VITALS: BP 146/40
[2020-06-21] MEDS: ATORVASTATIN 80 MG TAB PO SCH (22:20)
[2020-06-22] VITALS: BP 136/58
--- NOTE | 2020-06-22 | NUR ---
MADE ROUNDS , O2 SATWNL . NO S/SX OF ACUTE DISTRESS NOTED .
--- NOTE | 2020-06-22 01:00 | NUR ---
C/O OF LEG PAIN - WILL MEDICATE .
[2020-06-22] MEDS: ACETAMINOPHEN 325 MG TAB PO PRN ×2 (01:06→16:23)
--- NOTE | 2020-06-22 02:00 | NUR ---
STILL C/O LEG PAIN - MOANING . ASSESS LEG - WOUND ON R ANKLE - NO OOZING NO TUNELLING NOTED . WILL RFER T O DR HUANG
[2020-06-22 04:00] VITALS: BP 127/43
--- NOTE | 2020-06-22 04:00 | NUR ---
NO RESPONS E FROM DR Dulce HUANG , PT SAID STILL IN PAIN BUT REDUCE COMPARE IT WAS
[2020-06-22] MEDS: BLOOD GLUCOSE MONITORING 1 DEV DEV FS SCH ×2 (05:27→11:34)
--- NOTE | 2020-06-22 06:00 | NUR ---
SLEEPING - CHEST RISE AND FALL EQUALLY .
--- NOTE | 2020-06-22 07:32 | NUR ---
ENDORSED- PT - STABLE - FOR HD - ENDORSE FF UP TODR. MUTHIA ABOUT MED FOR LEG PAIN .
[2020-06-22 08:00] VITALS: BP 141/57
[2020-06-22] MEDS ORDERED: FERROUS GLUCONATE 324 MG TAB PO SCH (08:00)
[2020-06-22 08:11] LABS: ANION GAP 17.7 (8-16); CARBON DIOXIDE 23.7 mmol/L (21-32); POTASSIUM 5.4 mmol/L (3.5-5.1)
[2020-06-22 08:14] LABS: MAGNESIUM 2.8 mg/dL (1.8-2.4); PHOSPHORUS 8.8 mg/dL (2.5-4.9)
--- NOTE | 2020-06-22 08:30 | NUR ---
RECEIVED REPORT FROM DAYSHIFT NURSE. PT RESTING IN BED. ABLE TO MAKE NEEDS KNOWN. RESPIRATIONS EVEN AND UNLABORED WITH NO SOB OR RESPIRATORY DISTRESS. IV SITE IN R HAND 22G IS CLEAN, DRY, AND INTACT. SAFETY MEASURES IN PLACE. WILL CONTINUE TO MONITOR
[2020-06-22] MEDS: INSULIN LANTUS 100 UNITS/ML 10 ML VIAL SUBQ SCH (09:00)
[2020-06-22] MEDS: amLODIPine 5 MG TAB PO SCH (09:00)
[2020-06-22] MEDS: hydrALAZINE 25 MG TAB PO SCH ×2 (09:00→13:00)
[2020-06-22] MEDS: carvediloL 12.5 MG TAB PO SCH (09:00)
--- NOTE | 2020-06-22 09:02 | NUR ---
FNS CONSULT FOR WOUNDS/PRESSURE INJURIES RECEIVED. PATIENT WILL BE ASSESSED HIGH NUTRITIONAL RISK.
--- NOTE | 2020-06-22 09:30 | NUR ---
ADMINISTERED SCHED MEDS PRESCRIBED PER MD ORDER. HELD BP MEDS DUE TO PT TO RECEIVE HD TODAY. MEDICATION EDUCATION PERFORMED. PT VERBALIZED UNDERSTANDING. SAFETY MEASURES IN PLACE. WILL CONTINUE TO MONITOR
[2020-06-22] MEDS: EPOETIN ALFA 4,000 UNITS/ML VIAL IV SCH (09:34)
[2020-06-22] MEDS: LACTULOSE 20 GM/30 ML UDC PO SCH (09:34)
--- NOTE | 2020-06-22 10:00 | NUR ---
HD NURSE HERE. REPORT GIVEN. WILL CONTINUE TO MONITOR
[2020-06-22 10:43] LABS: CREATININE 8.6 mg/dL (0.6-1.3)
--- NOTE | 2020-06-22 11:30 | NUR ---
PT BLOOD SUGAR IS 154. PT DOES NOT HAVE MUCH APPETITE. WILL HOLD INSULIN FOR NOW. SAFETY MEASURES IN PLACE. WILL CONTINUE TO MONITOR
[2020-06-22 12:00] VITALS: BP 133/52
--- NOTE | 2020-06-22 13:30 | NUR ---
PT FINISHED HD AND GOT 2.8L OUT. SAFETY MEASURES IN PLACE. WILL CONTINUE TO MONITOR
[2020-06-22] MEDS ORDERED: LACT10SO11 PO (14:28)
[2020-06-22] MEDS ORDERED: FERR324T11 PO (14:28)
--- NOTE | 2020-06-22 14:33 | NUR ---
06/22/20 RD INITIAL ASSESSMENT COMPLETED PLEASE REFER TO NUTRITION ASSESSMENT UNDER CARE ACTIVITY FOR ESTIMATED NUTRITIONAL NEEDS. 1. CONTINUE RENAL DIET TOLERATED 2. CONTINUE VITAMIN C SUPPLEMENTATION FOR WOUND HEALING 3. RD TO FOLLOW-UP 3-5 DAYS, MODERATE RISK MAURO CARRASCO RD
[2020-06-22 15:13] LABS: ANION GAP 12.6 (8-16); POTASSIUM 4.6 mmol/L (3.5-5.1)
--- NOTE | 2020-06-22 15:28 | NUR ---
PT AWARE OF DISCHARGE AND WOULD LIKE TO GO HOME BEFORE DINNER. WILL CONTINUE TO MONITOR
[2020-06-22 15:34] VITALS: BP 133/52
[2020-06-22 16:11] LABS: CREATININE 5.2 mg/dL (0.6-1.3)
--- NOTE | 2020-06-22 16:35 | NUR ---
USED NUT PROCESS HELPER PHONE [employer] WITH SHANTAL [id number]. INSTRUCTED PT TO VISIT PCP AND DR. LINDA WITHIN 3-5 DAYS OF DISCHARGE. PT VERBALIZED UNDERSTANDING. PT DOES NOT WANT FLU OR PNA VACCINE. WANTS TO GET IT WITH PCP. REMOVED INTACT IV CANNULA AND ID BAND. PT GATHERED ALL OF HER BELONGINGS AND CHANGED INTO HER OWN CLOTHES. PT STABLE TO GO HOME
--- NOTE | 2020-06-23 08:43 | NUR ---
WOUND CONSULT NOT DONE, PT. DISCHARGED.
== END 2020-06-22 16:43 | disposition home or self-care (01) | DRG 244 ==
LOC: MED 14:49 → MTU 19:52 → MMU 06-18 08:02
PROVIDERS: ADMIT Family Medicine; ATTEND Family Medicine
PROC: 5A1D70Z Performance of Urinary Filtration, Intermittent, Less than 6 Hours Per Day (ICD-10-PCS; 2020-06-18)
PROC: 30233N1 Transfusion of Nonautologous Red Blood Cells into Peripheral Vein, Percutaneous Approach (ICD-10-PCS; principal; 2020-06-19)
PROC: 0DBG8ZZ Excision of Left Large Intestine, Via Natural or Artificial Opening Endoscopic (ICD-10-PCS; 2020-06-21)
PROC: 0DBL8ZZ Excision of Transverse Colon, Via Natural or Artificial Opening Endoscopic (ICD-10-PCS; 2020-06-21)
PROC: 0DBN8ZZ Excision of Sigmoid Colon, Via Natural or Artificial Opening Endoscopic (ICD-10-PCS; 2020-06-21)
PROC: 5A1D70Z Performance of Urinary Filtration, Intermittent, Less than 6 Hours Per Day (ICD-10-PCS; 2020-06-21 09:00)
DX: K57.31 Diverticulosis of large intestine without perforation or abscess with bleeding (principal); E11.22 Type 2 diabetes mellitus with diabetic chronic kidney disease; N17.0 Acute kidney failure with tubular necrosis; I50.43 Acute on chronic combined systolic (congestive) and diastolic (congestive) heart failure; I13.2 Hypertensive heart and chronic kidney disease with heart failure and with stage 5 chronic kidney disease, or end stage renal disease; E87.1 Hypo-osmolality and hyponatremia; E87.5 Hyperkalemia; E43 Unspecified severe protein-calorie malnutrition; E83.41 Hypermagnesemia; N18.6 End stage renal disease; Z99.2 Dependence on renal dialysis; Z20.822 Contact with and (suspected) exposure to COVID-19; G89.29 Other chronic pain; M79.673 Pain in unspecified foot; Z82.49 Family history of ischemic heart disease and other diseases of the circulatory system; Z79.899 Other long term (current) drug therapy; K63.5 Polyp of colon; Z68.1 Body mass index [BMI] 19.9 or less, adult; D50.0 Iron deficiency anemia secondary to blood loss (chronic); E78.5 Hyperlipidemia, unspecified; D63.8 Anemia in other chronic diseases classified elsewhere; N26.1 Atrophy of kidney (terminal)
CPT/HCPCS: 31500; 36415; 36430; 45381; 71045; 73630; 74018; 80048; 80053; 82150; 82272; 82607; 82728; 82746; 82948; 83036; 83540; 83690; 83735; 83880; 84100; 84436; 84439; 84443; 84479; 84484; 85025; 85045; 85610; 85730; 86886; 86900; 86901; 86920; 87081; 93925; 93970; 99291; 99292; J0360; J0696; J0885; J1200; J1610; J1815; J1940; J2250; J2270; J2765; J3010; J7030; J7060; P9016